=== PATIENT | male | born 1930 | race Two or more races ===

== ENCOUNTER 2016-07-04 15:18 | Inpatient (IN) | payer MEDICARE, MEDICAID ==
[~2016-07-04] VITALS: Ht 149.9 cm; Wt 54.4 kg
[~2016-07-04 15:18] MED LIST: ASPIR-LOW81 MG PO; BROMDAY1.7 M1 BOTH EYES; COMBIGAN EYE DRO5 ML BOTH EYES; CYCLOBENZAPRINE10 MG PO; GLUCOPHAGE500 MG ORAL; LIDODERM700 M1 TP; LOTREL 5-10 MG1 EAC1 PO; NAPROXEN375 MG ORAL; NAPROXEN500 M2 PO; PRILOSEC20 MG ORAL; SIMVASTATIN40 MG ORAL; TIMOPTIC 0.5%1 DRO1 BOTH EYES; TRAVATAN 0.0042.5 ML RIGHT EYE; VICODIN 5-5001 EACH PO
[2016-07-04] MEDS ORDERED: BENAZEPRIL HCL40 MG ORAL (15:29)
[2016-07-04] MEDS ORDERED: NORCO 5-325 TA1 EACH ORAL (15:29)
[2016-07-04] MEDS ORDERED: LATANOPROST2.5 ML BOTH EYES (15:29)
[2016-07-04] MEDS ORDERED: AZOPT10 ML OP (15:29)
[2016-07-04] MEDS ORDERED: MELOXICAM15 MG PO (15:29)
[2016-07-04] MEDS ORDERED: TIMOPTIC 0.5%1 EACH OP (15:29)
[2016-07-04] MEDS ORDERED: AMLODIPINE BESYL5 MG ORAL (15:29)
[2016-07-04] MEDS ORDERED: GABAPENTIN300 MG ORAL (15:29)
[2016-07-04] MEDS ORDERED: AKTOB1 DROP BOTH EYES (15:29)
--- NOTE | 2016-07-04 15:42 | Emergency Room Report ---
History of Present Illness General Chief Complaint: Gastrointestinal Bleed Source: Patient, EMS Present Illness HPI The patient presents with 6 days of vomiting dark blood and also passing blood per rectum. He's had some dizziness recently. He has diarrhea which is about 6 times today. It's been mckayla blood according to him. He's not sure how much. He has epigastric pain also. He thinks he's had this in the past but has not had studies done in the past. There was no coffee-ground material but with slight dark blood in the vomit. He rates the pain in his stomach as 10/10 , burning and pressure, constant and not radiating (though he is smiling and in NAD). The patient denies being evaluated for this problem in the past. The patient denies chest pain, shortness of breath, fever, chills. The patient has arthritis and takes some medication for that he's not sure that it is. He denies any blood thinner. His is unaware of passing blood in stool. Allergies: Coded Allergies: No Known Allergies (Unverified , 05/28/12) Patient History Past Medical History: see triage record Social History: Denies: smoking Social History Narrative , born [facility] Reviewed Nursing Documentation: PMH: Agreed, PSxH: Agreed Nursing Documentation-PMH Past Medical History: No History, Except For Hx Cardiac Problems: Yes Hx Hypertension: Yes Hx Diabetes: Yes Hx Cancer: No Hx Gastrointestinal Problems: Yes Hx Neurological Problems: No Review of Systems All Other Systems: negative except mentioned in HPI Physical Exam Vital Signs Date Time Temp Pulse Resp B/P Pulse Ox O2 Delivery O2 Flow Rate FiO2 07/04/17 15:15 98.1 78 20 144/71 98 Room Air Sp02 EP Interpretation: reviewed, normal General Appearance: well appearing, no apparent distress, GCS 15 Head: normocephalic Eyes: bilateral eye PERRL, bilateral eye normal inspection, bilateral eye other - no pallor - sylastic lenses ENT: moist mucus membranes Neck: supple Respiratory: lungs clear, normal breath sounds Cardiovascular #1: regular rate, rhythm Cardiovascular #2: 2+ radial (R) Gastrointestinal: normal inspection, normal bowel sounds, non tender, no mass, non-distended Rectal: heme positive stool, other - possible hemorrhoid versus other process Musculoskeletal: back normal, gait/station normal, normal range of motion Neurologic: alert, oriented x3, grossly normal Psychiatric: mood/affect normal Skin: normal inspection, warm/dry, other - no pallor Medical Decision Making Diagnostic Impression: Primary Impression: Gastrointestinal hemorrhage Qualified Codes: K92.2 - Gastrointestinal hemorrhage, unspecified Additional Impressions: Hyponatremia Epigastric pain ER Course Patient with reported vomiting blood, epigastric pain and passing blood in stool (guaiac + stool). Ddx; gastritis, PUD, hemorrhoids, diverticulosis, anemia. Need to exclude cardiac involvement and assess extent of blood loss. Labs, EKG and abd xrays and CXR ordered. Treatment with gentle hydration, protonix and analgesia. WBC and H/H good. Sodium is low and might be partial cause of vomiting (or result). Needs IV hydration and repeat eval of H/H and sodium. Admit med Dr. Wilkerson. Laboratory Tests Test 07/04/16 15:38 07/04/16 16:50 White Blood Count 9.9 K/UL (4.8-10.8) Red Blood Count 3.86 M/UL (4.70-6.10) L Hemoglobin 11.7 G/DL (14.2-18.0) L Hematocrit 32.6 % (42.0-52.0) L Mean Corpuscular Volume 84 FL (80-99) Mean Corpuscular Hemoglobin 30.3 PG (27.0-31.0) Mean Corpuscular Hemoglobin Concent 35.9 G/DL (32.0-36.0) Red Cell Distribution Width 12.3 % (11.6-14.8) Platelet Count 270 K/UL (150-450) Mean Platelet Volume 6.8 FL (6.5-10.1) Neutrophils (%) (Auto) 78.4 % (45.0-75.0) H Lymphocytes (%) (Auto) 12.8 % (20.0-45.0) L Monocytes (%) (Auto) 7.8 % (1.0-10.0) Eosinophils (%) (Auto) 0.4 % (0.0-3.0) Basophils (%) (Auto) 0.6 % (0.0-2.0) Prothrombin Time 10.6 SEC (9.30-11.50) Prothrombin Time INR 1.0 (0.9-1.1) PTT 33 SEC (23-33) Sodium Level 125 mEQ/L (135-145) L Potassium Level 4.3 mEQ/L (3.4-4.9) Chloride Level 87 mEQ/L (98-107) L Carbon Dioxide Level 20 mEQ/L (20-30) Anion Gap 18 (5-15) H Blood Urea Nitrogen 14 mg/dL (7-23) Creatinine 1.1 mg/dL (0.7-1.2) Estimate Glomerular Filtration Rate mL/min (>60) Glucose Level 176 mg/dL (74-106) H Calcium Level 9.4 mg/dL (8.6-10.2) Total Bilirubin 0.4 mg/dL (0.0-1.2) Aspartate Amino Transferase (AST) 15 U/L (5-40) Alanine Aminotransferase (ALT) 9 U/L (3-41) Alkaline Phosphatase 81 U/L (40-129) Troponin I < 0.30 ng/mL (<=0.30) Total Protein 7.2 g/dL (6.6-8.7) Albumin 4.1 g/dL (3.5-5.2) Globulin 3.1 g/dL Albumin/Globulin Ratio 1.3 (1.0-2.7) Lipase 18 U/L (< 60) Urine Color Pale yellow Urine Appearance Clear Urine pH 7 (4.5-8.0) Urine Specific [place] 1.005 (1.005-1.035) Urine Protein 1+ (NEGATIVE) H Urine Glucose (UA) 2+ (NEGATIVE) H Urine Ketones Negative (NEGATIVE) Urine Occult Blood 1+ (NEGATIVE) H Urine Nitrite Negative (NEGATIVE) Urine Bilirubin Negative (NEGATIVE) Urine Urobilinogen Normal MG/DL (0.0-1.0) Urine Leukocyte Esterase Negative (NEGATIVE) Urine RBC 2-4 /HPF (0 - 0) H Urine WBC 0-2 /HPF (0 - 0) Urine Squamous Epithelial Cells None /LPF (NONE/OCC) Urine Bacteria Few /HPF (NONE) EKG Diagnostic Results Rate: normal Rhythm: NSR ST Segments: no acute changes Rhythm Strip Diag. Results EP Interpretation: yes Rhythm: NSR, no PVC's, no ectopy Chest X-Ray Diagnostic Results EP Interpretation: Yes Findings: no consolidation, no effusion, no pneumothorax, other - atelectasis R base Number of Views: 1 Other X-Ray Diagnostic Results Other X-Ray Diagnostic Results : X-Ray Ordered: abd EP Interpretation: Yes Number of Views: 2 - paucity gas, no SBO, no masses Last Vital Signs Date Time Temp Pulse Resp B/P Pulse Ox O2 Delivery O2 Flow Rate FiO2 07/04/16 21:00 96.4 61 18 117/59 Room Air 07/04/16 18:46 95 Status: improved Disposition: ADMITTED INPATIENT Condition: Serious Spencer Alejandre M.D. July 04, 2016 15:42
[2016-07-04] MEDS ORDERED: Pantoprazole Inj IV ONE (15:45)
[2016-07-04] MEDS ORDERED: Morphine Sulfate 2mg/ml Inj IVP ONE (15:45)
[2016-07-04 16:05] VITALS: BP 143/68
[2016-07-04 16:22] LABS: PROTHROMBIN TIME 10.6 SEC (9.30-11.50)
[2016-07-04 16:28] LABS: ALANINE AMINOTRANSFERASE 9 U/L (3-41); ALBUMIN/GLOBULIN RATIO 1.3 (1.0-2.7); ASPARTATE AMINO TRANSFERASE 15 U/L (5-40); BASOPHILS % (AUTO) 0.6 % (0.0-2.0); CALCIUM 9.4 mg/dL (8.6-10.2); CARBON DIOXIDE 20 mEQ/L (20-30); CREATININE 1.1 mg/dL (0.7-1.2); EOSINOPHILS % (AUTO) 0.4 % (0.0-3.0); HEMOLYSIS 4; LIPASE 18 U/L (< 60); LYMPHOCYTES % (AUTO) 12.8 % (20.0-45.0); MEAN CORPUSCULAR HEMOGLOBIN 30.3 PG (27.0-31.0); MEAN CORPUSCULAR HGB CONC 35.9 G/DL (32.0-36.0); MEAN CORPUSCULAR VOLUME 84 FL (80-99); MEAN PLATELET VOLUME 6.8 FL (6.5-10.1); MONOCYTES % (AUTO) 7.8 % (1.0-10.0); NEUTROPHILS % (AUTO) 78.4 % (45.0-75.0); PLATELET COUNT 270 K/UL (150-450); RED BLOOD COUNT 3.86 M/UL (4.70-6.10); RED CELL DISTRIBUTION WIDTH 12.3 % (11.6-14.8); TOTAL PROTEIN 7.2 g/dL (6.6-8.7); WHITE BLOOD COUNT 9.9 K/UL (4.8-10.8)
[2016-07-04 16:32] LABS: TROPONIN I < 0.30 ng/mL (<=0.30)
[2016-07-04 16:39] LABS: ANION GAP 18 (5-15); CHLORIDE 87 mEQ/L (98-107); POTASSIUM 4.3 mEQ/L (3.4-4.9); SODIUM 125 mEQ/L (135-145)
[2016-07-04 17:00] LABS: APPEARANCE,URINE CLEAR; KETONES,URINE NEGATIVE (NEGATIVE); LEUKOCYTE ESTERASE ,URINE NEGATIVE (NEGATIVE); NITRITE,URINE NEGATIVE (NEGATIVE); PH,URINE 7 (4.5-8.0); PROTEIN,URINE 1+ (NEGATIVE); UROBILINOGEN,URINE NORMAL MG/DL (0.0-1.0)
[2016-07-04 17:10] LABS: BACTERIA,URINE FEW /HPF; WBC,URINE 0-2 /HPF (0 - 0)
--- NOTE | 2016-07-04 17:14 | Diagnostic Imaging Report ---
Indications: Abdominal pain. Technique: AP view of the abdomen Findings: Comparison: None. Bowel gas pattern is unremarkable. A cluster of small nodular calcifications projects to the left of the upper lumbar spine. Scattered arterial mural calcifications. No soft tissue densities are demonstrated. Small osteophytes are present at the margins of multiple lumbar disc spaces.. IMPRESSION: No evidence of acute abdominopelvic disease Arteriosclerosis Left paraspinous calcifications may be vascular or represent kidney stones. Mild degenerative spondylosis
--- NOTE | 2016-07-04 17:15 | Diagnostic Imaging Report ---
Indications: Chest pain Technique: Leg the chest Findings: Comparison: 07/15/2012 Inspiratory effort has improved. Left lung base linear density has resolved. Elevation of the right hemidiaphragm persists with overlying linear density, unchanged. No new pulmonary parenchymal abnormality demonstrated. No pleural disease evident. Cardiac silhouette remains partially obscured. Pulmonary vasculature remains within normal limits. IMPRESSION: No evidence of acute cardio pulmonary disease, unchanged Persistent elevation of right hemidiaphragm with overlying subsegmental atelectasis versus scarring
[2016-07-04 17:19] VITALS: BP 137/67
[2016-07-04 18:46] VITALS: BP 144/77
[2016-07-04 21:00] VITALS: BP 117/59
[2016-07-04] MEDS ORDERED: Acetaminophen 500mg (ES) tab ORAL PRN (22:00)
[2016-07-04] MEDS: Pantoprazole Inj IVP SCH (22:33)
[2016-07-04] MEDS: D5NS 1,000 ML IV SCH (22:34)
[2016-07-04] MEDS: Norco 5mg/325mg tab ORAL PRN (23:11)
[2016-07-05] VITALS (13 sets, daily range): BP systolic 101–139; BP diastolic 52–79
[2016-07-05] MEDS: Norco 5mg/325mg tab ORAL PRN ×5 (03:55→22:33)
[2016-07-05 07:12] LABS: EOSINOPHILS % (AUTO) 1.4 % (0.0-3.0); LYMPHOCYTES % (AUTO) 21.9 % (20.0-45.0); MEAN CORPUSCULAR HEMOGLOBIN 27.9 PG (27.0-31.0); MEAN CORPUSCULAR HGB CONC 32.3 G/DL (32.0-36.0); MEAN CORPUSCULAR VOLUME 87 FL (80-99); MEAN PLATELET VOLUME 7.6 FL (6.5-10.1); MONOCYTES % (AUTO) 13.2 % (1.0-10.0); NEUTROPHILS % (AUTO) 62.4 % (45.0-75.0); PLATELET COUNT 314 K/UL (150-450); RED BLOOD COUNT 4.06 M/UL (4.70-6.10); RED CELL DISTRIBUTION WIDTH 12.9 % (11.6-14.8)
[2016-07-05 07:26] LABS: ALANINE AMINOTRANSFERASE 9 U/L (3-41); ALBUMIN/GLOBULIN RATIO 1.3 (1.0-2.7); ANION GAP 17 (5-15); ASPARTATE AMINO TRANSFERASE 16 U/L (5-40); CALCIUM 9.2 mg/dL (8.6-10.2); CARBON DIOXIDE 22 mEQ/L (20-30); CHLORIDE 90 mEQ/L (98-107); CREATININE 1.1 mg/dL (0.7-1.2); HEMOLYSIS 3; POTASSIUM 3.9 mEQ/L (3.4-4.9); SODIUM 129 mEQ/L (135-145); TOTAL PROTEIN 7.2 g/dL (6.6-8.7)
[2016-07-05] MEDS: Pantoprazole Inj IVP SCH ×2 (08:40→20:41)
--- NOTE | 2016-07-05 09:04 | Pre-Procedure Note/Attestation ---
Pre-Procedure Note/Attestation Complete Prior to Procedure Planned Procedure: not applicable Procedure Narrative: egd Indications for Procedure Pre-Operative Diagnosis: gib Attestation I attest that I discussed the nature of the procedure; its benefits; risks and complications; and alternatives (and the risks and benefits of such alternatives ), prior to the procedure, with the patient (or the patient's legal wireless sales representative). I attest that, if there was a reasonable possibility of needing a blood transfusion, the patient (or the patient's legal wireless sales representative) was given the [facility] standardized written summary, pursuant to the Gomez Marcin Blood Safety Act ([place] Health and Safety Code # 1645, as amended). I attest that I re-evaluated the patient just prior to the surgery and that there has been no change in the patient's H&P, except as documented below: CHERISE MORALES July 05, 2016 09:04
[2016-07-05 09:21] LABS: MAGNESIUM 1.8 mg/dL (1.7-2.5); PHOSPHORUS 2.6 mg/dL (2.5-4.8); URIC ACID 3.8 mg/dL (3.0-7.5)
[2016-07-05 09:30] LABS: THYROID STIMULATING HORMONE 1.14 uIU/mL (0.300-4.500)
[2016-07-05] MEDS ORDERED: Pneumococcal Vaccine 25mcg/0.5ml IM ONE (10:00)
--- NOTE | 2016-07-05 10:09 | Consultation ---
History of Present Illness General Date patient seen: July 05, 2016 Present Illness Allergies: Coded Allergies: No Known Allergies (Unverified , 05/28/12) Medication History Scheduled Amlodipine Besylate* (Amlodipine Besylate*), 5 MG ORAL DAILY, (Reported) Amlodipine Besylate/Benazepril 5-10 Mg* (Lotrel 5-10 Mg Capsule*), 1 EACH PO DAILY, (Reported) Aspirin* (Aspir-Low*), 81 MG PO DAILY, (Reported) Benazepril Hcl* (Benazepril Hcl*), 40 MG ORAL DAILY, (Reported) Brimonidine Tartrate/Timolol (Combigan Eye Drops), 5 ML BOTH EYES DAILY, ( Reported) Bromfenac Sodium (Bromday), 1.7 ML BOTH EYES DAILY, (Reported) Cyclobenzaprine Hcl* (Flexeril*), 10 MG PO TID Gabapentin* (Gabapentin*), 300 MG ORAL THREE TIMES A DAY, (Reported) Hydrocodone/Acetaminophen 5-500 (Vicodin 5-500), 1 TAB PO Q8H Latanoprost* (Xalatan*), Unknown Dose BOTH EYES BEDTIME, (Reported) Meloxicam* (Meloxicam*), 15 MG PO DAILY, (Reported) Metformin Hcl* (Glucophage*), 750 MG ORAL DAILY, (Reported) Omeprazole (Prilosec), 40 MG ORAL BID, (Reported) Simvastatin (Zocor), 10 MG ORAL DAILY, (Reported) Timolol Maleate (Timolol Maleate), 1 DROP BOTH EYES TWICE A DAY, (Reported) Tobramycin Sulf (Tobramycin), Unknown Dose BOTH EYES Q4H, (Reported) Travoprost (Benzalkonium) (Travatan 0.004% Eye Drop), 2.5 ML RIGHT EYE QHS, ( Reported) Scheduled PRN Hydrocodone Bit/Acetaminophen 5-325* ([place] 5-325*), 1 TAB ORAL Q4H PRN for For Pain, (Reported) Lidocaine (Lidoderm), 700 MG TP 3XW PRN, (Reported) Naproxen* (Naproxen*), 500 MG PO BID PRN, (Reported) Miscellaneous Medications Brinzolamide (Azopt), Unknown Dose OP, (Reported) Timolol Maleate/Pf (Timoptic 0.5% Ocudose Drop), Unknown Dose OP, (Reported) Patient History Healthcare decision maker N Resuscitation status Full Code Advanced Directive on File Physical Exam Last 24 Hour Vital Signs Date Time Temp Pulse Resp B/P Pulse Ox O2 Delivery O2 Flow Rate FiO2 07/05/16 08:39 60 130/62 07/05/16 07:56 97.5 60 15 130/62 96 Room Air 07/05/16 04:00 96.3 55 18 135/64 97 Room Air 07/05/16 00:00 97.5 57 18 135/64 96 Room Air 07/04/16 21:00 96.4 61 18 117/59 Room Air 07/04/16 18:46 97.7 79 20 144/77 95 Room Air 07/04/16 17:44 98.1 61 20 137/67 98 Room Air 07/04/16 17:19 98.1 61 20 137/67 98 Room Air 07/04/16 16:43 98.1 07/04/16 16:05 98.1 63 20 143/68 98 Room Air 07/04/16 15:15 98.1 78 20 144/71 98 Room Air Intake and Output 07/04/16 07/05/16 19:00 07:00 Intake Total 400 ml Balance 400 ml Intake IV Total 400 ml # Voids 1 4 # Bowel Movements 1 1 Laboratory Tests Test 07/04/16 15:38 07/04/16 16:50 07/05/16 04:50 White Blood Count 9.9 K/UL (4.8-10.8) 8.0 K/UL (4.8-10.8) Red Blood Count 3.86 M/UL (4.70-6.10) L 4.06 M/UL (4.70-6.10) L Hemoglobin 11.7 G/DL (14.2-18.0) L 11.3 G/DL (14.2-18.0) L Hematocrit 32.6 % (42.0-52.0) L 35.1 % (42.0-52.0) L Mean Corpuscular Volume 84 FL (80-99) 87 FL (80-99) Mean Corpuscular Hemoglobin 30.3 PG (27.0-31.0) 27.9 PG (27.0-31.0) Mean Corpuscular Hemoglobin Concent 35.9 G/DL (32.0-36.0) 32.3 G/DL (32.0-36.0) Red Cell Distribution Width 12.3 % (11.6-14.8) 12.9 % (11.6-14.8) Platelet Count 270 K/UL (150-450) 314 K/UL (150-450) Mean Platelet Volume 6.8 FL (6.5-10.1) 7.6 FL (6.5-10.1) Neutrophils (%) (Auto) 78.4 % (45.0-75.0) H 62.4 % (45.0-75.0) Lymphocytes (%) (Auto) 12.8 % (20.0-45.0) L 21.9 % (20.0-45.0) Monocytes (%) (Auto) 7.8 % (1.0-10.0) 13.2 % (1.0-10.0) H Eosinophils (%) (Auto) 0.4 % (0.0-3.0) 1.4 % (0.0-3.0) Basophils (%) (Auto) 0.6 % (0.0-2.0) 1.0 % (0.0-2.0) Prothrombin Time 10.6 SEC (9.30-11.50) 10.0 SEC (9.30-11.50) Prothromb Time International Ratio 1.0 (0.9-1.1) 1.0 (0.9-1.1) Activated Partial Thromboplast Time 33 SEC (23-33) 30 SEC (23-33) Sodium Level 125 mEQ/L (135-145) L 129 mEQ/L (135-145) L Potassium Level 4.3 mEQ/L (3.4-4.9) 3.9 mEQ/L (3.4-4.9) Chloride Level 87 mEQ/L (98-107) L 90 mEQ/L (98-107) L Carbon Dioxide Level 20 mEQ/L (20-30) 22 mEQ/L (20-30) Anion Gap 18 (5-15) H 17 (5-15) H Blood Urea Nitrogen 14 mg/dL (7-23) 10 mg/dL (7-23) Creatinine 1.1 mg/dL (0.7-1.2) 1.1 mg/dL (0.7-1.2) Estimat Glomerular Filtration Rate mL/min (>60) mL/min (>60) Glucose Level 176 mg/dL (74-106) H 153 mg/dL (74-106) H Calcium Level 9.4 mg/dL (8.6-10.2) 9.2 mg/dL (8.6-10.2) Total Bilirubin 0.4 mg/dL (0.0-1.2) 0.6 mg/dL (0.0-1.2) Aspartate Amino Transf (AST/SGOT) 15 U/L (5-40) 16 U/L (5-40) Alanine Aminotransferase (ALT/SGPT) 9 U/L (3-41) 9 U/L (3-41) Alkaline Phosphatase 81 U/L (40-129) 78 U/L (40-129) Troponin I < 0.30 ng/mL (<=0.30) Total Protein 7.2 g/dL (6.6-8.7) 7.2 g/dL (6.6-8.7) Albumin 4.1 g/dL (3.5-5.2) 4.1 g/dL (3.5-5.2) Globulin 3.1 g/dL 3.1 g/dL Albumin/Globulin Ratio 1.3 (1.0-2.7) 1.3 (1.0-2.7) Lipase 18 U/L (< 60) Urine Color Pale yellow Urine Appearance Clear Urine pH 7 (4.5-8.0) Urine Specific [place] 1.005 (1.005-1.035) Urine Protein 1+ (NEGATIVE) H Urine Glucose (UA) 2+ (NEGATIVE) H Urine Ketones Negative (NEGATIVE) Urine Occult Blood 1+ (NEGATIVE) H Urine Nitrite Negative (NEGATIVE) Urine Bilirubin Negative (NEGATIVE) Urine Urobilinogen Normal MG/DL (0.0-1.0) Urine Leukocyte Esterase Negative (NEGATIVE) Urine RBC 2-4 /HPF (0 - 0) H Urine WBC 0-2 /HPF (0 - 0) Urine Squamous Epithelial Cells None /LPF (NONE/OCC) Urine Bacteria Few /HPF (NONE) Plasma/Serum Osmolality Pending Uric Acid 3.8 mg/dL (3.0-7.5) Phosphorus Level 2.6 mg/dL (2.5-4.8) Magnesium Level 1.8 mg/dL (1.7-2.5) Thyroid Stimulating Hormone (TSH) 1.140 uIU/mL (0.300-4.500) Height (Feet): 5 Height (Inches): 5.00 Weight (Pounds): 120 Medications Current Medications Medications (Trade) Dose Ordered Sig/Deb Route PRN Reason Start Time Stop Time Status Last Admin Dose Admin Acetaminophen (Tylenol) 500 mg Q4H PRN ORAL Mild Pain/Temp > 100.5 07/04/16 22:00 08/03/16 21:59 Acetaminophen/ Hydrocodone Bitart ([place] 5/325) 1 tab Q4H PRN ORAL Moderate Pain (Pain Scale 4-6) 07/04/16 22:00 07/11/16 21:59 07/05/16 08:40 Amlodipine Besylate (Norvasc) 5 mg DAILY ORAL 07/05/16 09:00 08/04/16 08:59 07/05/16 08:39 Dextrose/Sodium Chloride (D5ns) 1,000 ml @ 50 mls/hr Q20H IV 07/04/16 22:00 08/03/16 21:59 07/04/16 22:34 Lidocaine (Lidoderm 5% PATCH) 1 patch DAILY TDERMAL 07/05/16 10:00 08/04/16 09:59 Non-Formulary Medication (Non-Formulary Med) 1 ea BID BOTH EYES 07/05/16 09:00 08/04/16 08:59 UNV Non-Formulary Medication (Non-Formulary Med) 1 ea THREE TIMES A DAY BOTH EYES 07/05/16 09:00 08/04/16 08:59 UNV Ondansetron HCl 4 mg 4 mg Q6H PRN IVP Nausea & Vomiting 07/04/16 21:30 08/03/16 21:29 Pantoprazole (Protonix) 40 mg EVERY 12 HOURS IVP 07/04/16 22:00 08/03/16 21:59 07/05/16 08:40 Assessment/Plan Assessment/Plan (1) Lumbar DDD (2) Lumbar Spondylosis (3) Cervical DDD (4) Cervical Spondylosis Seen Dictated TEJINDER SEARS J Carlos Eli July 05, 2016 10:09
--- NOTE | 2016-07-05 11:39 | Pre-Procedure Note/Attestation ---
Pre-Procedure Note/Attestation Complete Prior to Procedure Planned Procedure: not applicable Procedure Narrative: egd Indications for Procedure Pre-Operative Diagnosis: gib Attestation I attest that I discussed the nature of the procedure; its benefits; risks and complications; and alternatives (and the risks and benefits of such alternatives ), prior to the procedure, with the patient (or the patient's legal retail wireless sales representative). I attest that, if there was a reasonable possibility of needing a blood transfusion, the patient (or the patient's legal retail wireless sales representative) was given the [facility] standardized written summary, pursuant to the Gomez Marcin Blood Safety Act ([place] Health and Safety Code # 1645, as amended). I attest that I re-evaluated the patient just prior to the surgery and that there has been no change in the patient's H&P, except as documented below: CHERISE MORALES July 05, 2016 11:39
--- NOTE | 2016-07-05 11:50 | Anethesia Preoperative Eval ---
Anesthesia Pre-op PMH/ROS General Date of Evaluation: July 05, 2016 Anesthesiologist: Archie ASA Score: ASA 3 Mallampati Score Class I : Soft palate, uvula, fauces, pillars visible Class II: Soft palate, uvula, fauces visible Class III: Soft palate, base of uvula visible Class IV: Only hard plate visible Mallampati Classification: Class II Surgeon: Vahe Diagnosis: GI bleed Surgical Procedure: EGD Anesthesia History: none Family History: no anesthesia problems Allergies: Coded Allergies: No Known Allergies (Unverified , 05/28/12) Medications: see eMAR Past Medical History Cardiovascular: Reports: HTN, other - HLD, Denies: CAD, AR, arrhythmia, valve dz Pulmonary: Denies: COPD, PAPITO, asthma, other Gastrointestinal/Genitourinary: Reports: GERD, Denies: CRI, ESRD, other Neurologic/Psychiatric: Denies: CVA, TIA, dementia, depression/anxiety, other Endocrine: Reports: DM, Denies: hypothyroidism, other, steroids HEENT: Denies: [place] (L), [place] (R), cataract (L), cataract (R), glaucoma, other Hematology/Immune: Denies: DVT, anemia, bleeding disorder, other Musculoskeletal/Integumentary: Reports: OA, Denies: DDD, DJD, RA, edema, other PSxH Narrative: unable to assess Anesthesia Pre-op Phys. Exam Physician Exam Last Vital Signs Date Time Temp Pulse Resp B/P Pulse Ox O2 Delivery O2 Flow Rate FiO2 07/05/16 08:39 60 130/62 07/05/16 07:56 97.5 15 96 Room Air Constitutional: NAD Cardiovascular: RRR Respiratory: CTA Airway Exam Mallampati Score: Class II MO: limited ROM: limited Teeth: intact Anesthesia Pre-op A/P Labs Hematology Test 07/04/16 15:38 07/05/16 04:50 White Blood Count 9.9 K/UL (4.8-10.8) 8.0 K/UL (4.8-10.8) Red Blood Count 3.86 M/UL (4.70-6.10) L 4.06 M/UL (4.70-6.10) L Hemoglobin 11.7 G/DL (14.2-18.0) L 11.3 G/DL (14.2-18.0) L Hematocrit 32.6 % (42.0-52.0) L 35.1 % (42.0-52.0) L Mean Corpuscular Volume 84 FL (80-99) 87 FL (80-99) Mean Corpuscular Hemoglobin 30.3 PG (27.0-31.0) 27.9 PG (27.0-31.0) Mean Corpuscular Hemoglobin Concent 35.9 G/DL (32.0-36.0) 32.3 G/DL (32.0-36.0) Red Cell Distribution Width 12.3 % (11.6-14.8) 12.9 % (11.6-14.8) Platelet Count 270 K/UL (150-450) 314 K/UL (150-450) Mean Platelet Volume 6.8 FL (6.5-10.1) 7.6 FL (6.5-10.1) Neutrophils (%) (Auto) 78.4 % (45.0-75.0) H 62.4 % (45.0-75.0) Lymphocytes (%) (Auto) 12.8 % (20.0-45.0) L 21.9 % (20.0-45.0) Monocytes (%) (Auto) 7.8 % (1.0-10.0) 13.2 % (1.0-10.0) H Eosinophils (%) (Auto) 0.4 % (0.0-3.0) 1.4 % (0.0-3.0) Basophils (%) (Auto) 0.6 % (0.0-2.0) 1.0 % (0.0-2.0) Coagulation Test 07/04/16 15:38 07/05/16 04:50 Prothrombin Time 10.6 SEC (9.30-11.50) 10.0 SEC (9.30-11.50) Prothromb Time International Ratio 1.0 (0.9-1.1) 1.0 (0.9-1.1) Activated Partial Thromboplast Time 33 SEC (23-33) 30 SEC (23-33) Chemistry Test 07/04/16 15:38 07/05/16 04:50 Sodium Level 125 mEQ/L (135-145) L 129 mEQ/L (135-145) L Potassium Level 4.3 mEQ/L (3.4-4.9) 3.9 mEQ/L (3.4-4.9) Chloride Level 87 mEQ/L (98-107) L 90 mEQ/L (98-107) L Carbon Dioxide Level 20 mEQ/L (20-30) 22 mEQ/L (20-30) Anion Gap 18 (5-15) H 17 (5-15) H Blood Urea Nitrogen 14 mg/dL (7-23) 10 mg/dL (7-23) Creatinine 1.1 mg/dL (0.7-1.2) 1.1 mg/dL (0.7-1.2) Estimat Glomerular Filtration Rate mL/min (>60) mL/min (>60) Glucose Level 176 mg/dL (74-106) H 153 mg/dL (74-106) H Calcium Level 9.4 mg/dL (8.6-10.2) 9.2 mg/dL (8.6-10.2) Total Bilirubin 0.4 mg/dL (0.0-1.2) 0.6 mg/dL (0.0-1.2) Aspartate Amino Transf (AST/SGOT) 15 U/L (5-40) 16 U/L (5-40) Alanine Aminotransferase (ALT/SGPT) 9 U/L (3-41) 9 U/L (3-41) Alkaline Phosphatase 81 U/L (40-129) 78 U/L (40-129) Troponin I < 0.30 ng/mL (<=0.30) Total Protein 7.2 g/dL (6.6-8.7) 7.2 g/dL (6.6-8.7) Albumin 4.1 g/dL (3.5-5.2) 4.1 g/dL (3.5-5.2) Globulin 3.1 g/dL 3.1 g/dL Albumin/Globulin Ratio 1.3 (1.0-2.7) 1.3 (1.0-2.7) Lipase 18 U/L (< 60) Plasma/Serum Osmolality Pending Uric Acid 3.8 mg/dL (3.0-7.5) Phosphorus Level 2.6 mg/dL (2.5-4.8) Magnesium Level 1.8 mg/dL (1.7-2.5) Thyroid Stimulating Hormone (TSH) 1.140 uIU/mL (0.300-4.500) Studies Pre-op Studies: EKG - sr Risk Assessment & Plan Assessment: ASA III Plan: MAC Status Change Before Surgery: No Pre-Antibiotics Drug: N/A CAMILO JHAVERI M.D. July 05, 2016 11:50
[2016-07-05] MEDS ORDERED: DiphenhydrAMINE 50mg/ml Inj IVP PRN (12:00)
[2016-07-05] MEDS ORDERED: Propofol 10mg/ml 20ml IV ONE (12:00)
[2016-07-05] MEDS ORDERED: Lidocaine 1% MPF 10mg/ml 5ml ONE (12:00)
--- NOTE | 2016-07-05 12:19 | Endoscopy Procedure Note ---
Endoscopy Procedure Note Indication for Procedure: gib Procedures Performed: EGD Operative Findings/Diagnosis: gastric polyp Specimen: yes Pt Tolerated Procedure Well: Yes Estimated Blood Loss: none Anesthesiologist: pj Anesthesia: MAC Implant(s) used?: No 50 yrs or older w/o bx or poly: Not Applicable 10yrs. F/U not recommended: Not Applicable CHERISE MORALES July 05, 2016 12:19
--- NOTE | 2016-07-05 12:27 | Immediate Post-Op Evaluation ---
Immediate Post-Op Evalulation Immediate Post-Op Evalulation Procedure: EGD Date of Evaluation: July 05, 2016 Time of Evaluation: 12:28 IV Fluids: 300 Blood Products: 0 Estimated Blood Loss: 0 Urinary Output: 0 Blood Pressure Systolic: 91 Blood Pressure Diastolic: 42 Pulse Rate: 61 Respiratory Rate: 16 O2 Sat by Pulse Oximetry: 100 Temperature (Fahrenheit): 97.6 Pain Score (1-10): 0 Nausea: No Vomiting: No Complications 0 Patient Status: awake, reacts, patent, none Hydration Status: adequate Drug: N/A CAMILO JHAVERI M.D. July 05, 2016 12:27
--- NOTE | 2016-07-05 12:56 | Consultation ---
Consult Note Consult Note asked to eval for low Na The patient presents with 6 days of vomiting dark blood and also passing blood per rectum. He's had some dizziness recently. He's which is about 6 times today. It's been mckayla blood according to him. He's not sure how much. He has epigastric pain also. He thinks is and also but has not had studies done in the past. There was no coffee-ground material but with slight dark blood dysphonia. The patient denies being evaluated for this problem in the past. The patient denies chest pain, shortness of breath, fever, chills. The patient has arthritis and takes some medication for that he's not sure that it is. He denies any blood thinner. His is unaware of passing blood in stool. Social History Narrative , born [facility] Past Medical History: No History, Except For Hx Cardiac Problems: Yes Hx Hypertension: Yes Hx Diabetes: Yes Hx Gastrointestinal Problems: Yes . Assessment/Plan Staus; Low Na likely depletional GI bleed: been on NSAIDs DM- CAD GERD HTN Plan: Saline infusion Endoscopy- Protonix monitor LUCRECIA Saeed July 05, 2016 12:56
--- NOTE | 2016-07-05 13:40 | 48 Hour Post Anesthesia Eval ---
Post Anesthesia Evaluation Procedure: EGD Date of Evaluation: July 05, 2016 Time of Evaluation: 13:40 Blood Pressure Systolic: 121 0: 56 Pulse Rate: 62 Respiratory Rate: 22 Temperature (Fahrenheit): 97.6 O2 Sat by Pulse Oximetry: 96 Airway: patent Nausea: No Vomiting: No Pain Intensity: 0 Hydration Status: adequate Cardiopulmonary Status: at baseline Mental Status/LOC: patient returned to baseline Post-Anesthesia Complications: 0 Follow-up care needed: N/A - further care as per primary team CAMILO JHAVERI M.D. July 05, 2016 13:40
[2016-07-05] MEDS ORDERED: D5 1/2NS w/KCl 20mEq 1,000 ML IV SCH (16:00)
[2016-07-05] MEDS: D5NS 1,000 ML IV SCH (18:11)
--- NOTE | 2016-07-05 18:59 | Cardiology Report ---
APPROVED REPORT EKG Measurement Heart [id number] Normal sinus rhythm Left ventricular hypertrophy with repolarization abnormality Cannot rule out Septal infarct, age undetermined Abnormal ECG
--- NOTE | 2016-07-05 21:32 | Consultation ---
DATE OF CONSULTATION: 07/05/2016 PAIN MANAGEMENT CONSULTATION CONSULTING PHYSICIAN: Daysi Betancourt M.D. REFERRING PHYSICIAN: Zuleika Wilkerson M.D. PHYSICIAN TASSEL MAKER: Sreedhar Ivy CHIEF COMPLAINT: Neck and low back pain. HISTORY OF PRESENT ILLNESS: This is an 86-year-old male, who is being seen on the Med/Surg floor of [facility] for initial comprehensive pain management consultation. The patient reports that he has been having neck pain and low back pain for many years. The patient was seen in the past by Dr. Betancourt in 2012, but continues to have neck and lower back pain and was admitted to the hospital due to gastrointestinal bleed. At this time, the patient was complaining of pain in the neck and low back, which he rates at 10/10 at its worst. He is reporting that he received Lidoderm patch, which helps to relieve his pain and as an outpatient also takes tramadol at times and Benicia at times and was started on Benicia 5/325 mg one tablet every 4 hours as needed for moderate pain, which has helped to relieve his pain from a 10 to 5/10 at this time. We were consulted so that the patient would have adequate pain control while here in the hospital. PAST MEDICAL HISTORY: Diabetes, hypertension, glaucoma, and osteoarthritis. PAST SURGICAL HISTORY: Right forearm surgery and eye surgery due to glaucoma. SOCIAL HISTORY: Denies smoking, drinking alcohol, or drug abuse. ALLERGIES: No known drug allergies. MEDICATIONS: Amlodipine, aspirin, benazepril, Combigan, Flexeril, Neurontin, Vicodin, , meloxicam, Glucophage, Prilosec, Zocor, timolol, atorvastatin, , Lidoderm, and naproxen. REVIEW OF SYSTEMS: Denies rash, fever, chills, sweating, dizziness, drowsiness, blurred vision, sore throat, or change in hearing or weight. He is complaining of neck and low back pain. PHYSICAL EXAMINATION: GENERAL: Alert, awake, and oriented. The patient is Luxembourger speaking and being interpreted at this time. VITAL SIGNS: Blood pressure 130/60, heart rate is 60, oxygen saturation 96%, respiratory rate 15, and temperature 97.5 degrees Fahrenheit. HEENT: PERRLA. NECK: Range of motion is decreased due to the patient's condition with tenderness to paracervical muscles. No adenopathy. LUNGS: Decreased breath sounds bilaterally. HEART: S1 and S2 regular. ABDOMEN: There is tenderness to palpation. BACK: Range of motion is decreased in flexion and extension with tenderness to paraspinal muscles. No tenderness to trapezius or rhomboid muscles. EXTREMITIES: Range of motion is full in all directions. Motor is intact. No cyanosis. No clubbing. No edema. Sensory is intact. Reflexes are not obtainable. No adenopathy. Lower extremity range of motion is decreased due to the patient's clinical condition. Motor is 4/5 in all muscles bilaterally. No cyanosis. No clubbing. No edema. Sensory is intact. Reflexes are not obtainable. No adenopathy. ASSESSMENT AND PLAN: This is an 86-year-old male with lumbar degenerative disk disease, lumbar spondylosis, cervical degenerative disk disease, and cervical spondylosis. The patient will be continued on the Benicia 5/325 mg one tablet every 4 hours as needed for pain and will be started on Lidoderm patch 12 hours on and 12 hours off to be applied to the back at the site of the pain The patient was discussed with Dr. Betancourt and Dr. Betancourt concurred. We will follow the patient. Thank you very much for the courtesy of this consultation. Daysi Betancourt M.D. JP Ivy DR: JES JOB#: [id number] CC:
[2016-07-06] VITALS: BP 124/59
--- NOTE | 2016-07-06 00:32 | Procedure Note ---
DATE OF PROCEDURE: 07/05/2016 SURGEON: Jose Cotter M.D. PROCEDURE: Upper endoscopy with biopsy. ANESTHESIOLOGIST: . INSTRUMENT: Olympus adult flexible upper endoscope. INDICATION: Anemia and gastrointestinal bleeding. REASON FOR PROCEDURE: The procedure, risks, benefits, and possible consequences, including hemorrhage, aspiration, perforation and infection, and alternative treatments, were explained to the patient/legal guardian by Dr. Jose Cotter and the patient/legal guardian understood and accepted these risks. DESCRIPTION OF PROCEDURE: After informed consent was obtained and the patient was adequately sedated, Olympus upper endoscope was advanced from mouth into the second portion of duodenum and retroflexion was performed in the stomach. The patient had two inflammatory looking polyps in the antrum of the stomach, which were biopsied. The patient also had diffuse gastritis. Random biopsy from antrum was obtained to rule out H. pylori infection. The rest of the endoscopic exam was grossly within normal limit. The patient tolerated the procedure very well without complication. SUMMARY FINDINGS: 1. Gastric polyps. 2. Gastritis. RECOMMENDATIONS: Follow up biopsies and treat accordingly. I want to thank, Dr. Zuleika Wilkerson, for this kind referral. Jose Cotter M.D. DR: ALYSSA JOB#: [id number] CC: Zuleika Wilkerson M.D.; Fax#: [phone]
--- NOTE | 2016-07-06 01:32 | History and Physical Report ---
DATE OF ADMISSION: 07/04/2016 HISTORY OF PRESENT ILLNESS: History is obtained via the dispute resolution specialist. According to the , the patient had a rectal bleeding and is admitted for hyponatremia as well as rectal bleeding. He was weak, however, no syncopal episode. No nausea, vomiting or diarrhea. No fever or chills. No abdominal pain. No shortness of breath. PAST MEDICAL HISTORY: The patient has a history of hypertension, history of hyperlipidemia, history of glaucoma, history of neuropathy, chronic pain syndrome, degenerative joint disease, NIDDM, and GERD. PAST SURGICAL HISTORY: None. MEDICATIONS: Amlodipine, aspirin, benazepril, , Flexeril, gabapentin, Xalatan, Lidoderm, meloxicam, Glucophage, Prilosec, Zocor, and Kenalog. ALLERGIES: No known allergies. FAMILY HISTORY: Does have history of diabetes. SOCIAL HISTORY: The patient denies smoking, alcohol or illicit drugs. REVIEW OF SYSTEMS: HEENT: Denies headache. Respiratory: Denies shortness of breath. Denies cough. Cardiovascular: Denies chest pain. No orthopnea. Gastrointestinal: Reports rectal bleeding for one day. No abdominal pain. No nausea or vomiting. No constipation. Extremities: He does have chronic back pain, which is chronic. Central Nervous System: Denies change in vision or speech pattern. Had some dizzy episode, but without any syncope. PHYSICAL EXAMINATION: VITAL SIGNS: Temperature is 97.6 degrees, pulse is 60, and blood pressure 124/68. HEENT: PERRLA. NECK: Supple. No lymphadenopathy. CHEST: Clear to auscultation. GASTROINTESTINAL: Soft, nontender, and nondistended. No organomegaly. EXTREMITIES: No edema. Moves all four extremities. NEUROLOGIC: Sensory is intact to light touch. Reflexes equal on both sides. LABORATORY AND DIAGNOSTIC DATA: Labs with WBC of 9.9, hemoglobin 11.7, and platelet of 270,000. Sodium 125, potassium 4.3, BUN of 14, creatinine 1.1, and glucose of 176. ASSESSMENT: 1. Hyponatremia. 2. Rectal bleeding. 3. I have asked Dr. Cotter as well as Dr. Joya and Dr. Betancourt to see the patient for the above-mentioned diagnoses and treatment. Ali Husam Wilkerson DR: YVONNE JOB#: [id number] CC:
[2016-07-06 04:00] VITALS: BP 127/66
[2016-07-06 04:39] LABS: BASOPHILS % (AUTO) 1.1 % (0.0-2.0); EOSINOPHILS % (AUTO) 1.3 % (0.0-3.0); LYMPHOCYTES % (AUTO) 17.9 % (20.0-45.0); MEAN CORPUSCULAR HEMOGLOBIN 28.2 PG (27.0-31.0); MEAN CORPUSCULAR VOLUME 86 FL (80-99); MEAN PLATELET VOLUME 6.4 FL (6.5-10.1); MONOCYTES % (AUTO) 10.6 % (1.0-10.0); NEUTROPHILS % (AUTO) 69.1 % (45.0-75.0); PLATELET COUNT 309 K/UL (150-450); RED BLOOD COUNT 3.81 M/UL (4.70-6.10); WHITE BLOOD COUNT 10.3 K/UL (4.8-10.8)
[2016-07-06 05:19] LABS: ALANINE AMINOTRANSFERASE 9 U/L (3-41); ALBUMIN/GLOBULIN RATIO 1.2 (1.0-2.7); ANION GAP 12 (5-15); ASPARTATE AMINO TRANSFERASE 14 U/L (5-40); CALCIUM 9.2 mg/dL (8.6-10.2); CARBON DIOXIDE 24 mEQ/L (20-30); CHLORIDE 95 mEQ/L (98-107); CHOLESTEROL 113 mg/dL (< 200); CHOLESTEROL/HDL RATIO 3.5 (3.3-4.4); CREATININE 1.2 mg/dL (0.7-1.2); CRP QUANT < 0.3 mg/dL (< 0.5); HEMOLYSIS 4; LDL CHOLESTEROL (CALC.) 54 mg/dL (60-99); MAGNESIUM 1.8 mg/dL (1.7-2.5); PHOSPHORUS 2.8 mg/dL (2.5-4.8); SODIUM 131 mEQ/L (135-145); TOTAL PROTEIN 6.6 g/dL (6.6-8.7); URIC ACID 3.9 mg/dL (3.0-7.5)
[2016-07-06] MEDS: Norco 5mg/325mg tab ORAL PRN ×2 (06:24→12:14)
[2016-07-06 08:45] VITALS: BP 112/58
[2016-07-06] MEDS: Pantoprazole Inj IVP SCH (08:59)
--- NOTE | 2016-07-06 09:26 | General Progress Note ---
Assessment/Plan Problem List: (1) Gastrointestinal hemorrhage ICD Codes: K92.2 - Gastrointestinal hemorrhage, unspecified SNOMED: 37241282 Qualifiers: Qualified Codes: K92.2 - Gastrointestinal hemorrhage, unspecified (2) Hyponatremia ICD Codes: E87.1 - Hypo-osmolality and hyponatremia SNOMED: 57966575 (3) Epigastric pain ICD Codes: R10.13 - Epigastric pain SNOMED: 41114923 Status: progressing Assessment/Plan afebrile vitals stable s/p endoscopy with no significant finding Subjective ROS Limited/Unobtainable: Yes Constitutional: Reports: no symptoms Allergies: Coded Allergies: No Known Allergies (Unverified , 05/28/12) Objective Last 24 Hour Vital Signs Date Time Temp Pulse Resp B/P Pulse Ox O2 Delivery O2 Flow Rate FiO2 07/06/16 08:59 60 112/58 07/06/16 08:45 97.7 60 15 112/58 98 Room Air 07/06/16 04:00 98.1 55 18 127/66 100 Room Air 07/06/16 00:00 98.4 58 18 124/59 100 Room Air 07/05/16 20:00 97.3 60 18 124/58 95 Room Air 07/05/16 16:14 97.8 64 21 107/52 96 Room Air 07/05/16 13:40 62 22 96 07/05/16 13:10 97.6 62 23 121/56 96 Room Air 07/05/16 13:00 60 22 124/58 95 Room Air 07/05/16 12:50 63 24 119/58 96 Room Air 07/05/16 12:40 65 23 116/59 94 Room Air 07/05/16 12:35 64 27 109/56 94 Room Air 07/05/16 12:30 65 24 101/53 95 Room Air 07/05/16 12:27 61 16 100 07/05/16 12:24 97.6 68 26 103/79 94 Simple Mask 6.0 07/05/16 12:00 97.8 63 21 139/61 100 Room Air Intake and Output 07/05/16 07/06/16 19:00 07:00 Intake Total 630 ml 600 ml Output Total 0 ml Balance 630 ml 600 ml Intake Oral 480 ml IV Total 150 ml 600 ml Output Estimated Blood Loss 0 ml # Voids 2 3 # Bowel Movements 2 Laboratory Tests 07/05/16 20:20: Urine Random Sodium 102 07/06/16 04:25: White Blood Count 10.3, Red Blood Count 3.81L, Hemoglobin 10.8L, Hematocrit 32.6L, Mean Corpuscular Volume 86, Mean Corpuscular Hemoglobin 28.2, Mean Corpuscular Hemoglobin Concent 33.0, Red Cell Distribution Width 13.0, Platelet Count 309, Mean Platelet Volume 6.4L, Neutrophils (%) (Auto) 69.1, Lymphocytes ( %) (Auto) 17.9L, Monocytes (%) (Auto) 10.6H, Eosinophils (%) (Auto) 1.3, Basophils (%) (Auto) 1.1, Sodium Level 131L, Potassium Level 4.0, Chloride Level 95L, Carbon Dioxide Level 24, Anion Gap 12, Blood Urea Nitrogen 7, Creatinine 1.2, Estimat Glomerular Filtration Rate , Glucose Level 166H, Hemoglobin A1c 8.4H, Uric Acid 3.9, Calcium Level 9.2, Phosphorus Level 2.8, Magnesium Level 1.8, Total Bilirubin 0.5, Aspartate Amino Transf (AST/SGOT) 14, Alanine Aminotransferase (ALT/SGPT) 9, Alkaline Phosphatase 69, C-Reactive Protein, Quantitative < 0.3, Pro-B-Type Natriuretic Peptide 2001H, Total Protein 6.6, Albumin 3.7, Globulin 2.9, Albumin/Globulin Ratio 1.2, Triglycerides Level 134, Cholesterol Level 113, LDL Cholesterol 54L, HDL Cholesterol 32, Cholesterol/HDL Ratio 3.5 Height (Feet): 4 Height (Inches): 11.00 Weight (Pounds): 120 Neck: supple Cardiovascular: normal rate Respiratory/Chest: lungs clear Abdomen: soft Zuleika Wilkerson MD July 06, 2016 09:26
--- NOTE | 2016-07-06 10:54 | General Progress Note ---
Assessment/Plan Status: stable Status Narrative Na up 131 Assessment/Plan status: Low Na likely depletional- improved GI bleed: been on NSAIDs DM- CAD GERD HTN Plan: DC IV Endoscopy- Gastritis Protonix monitor lytes Ok to Dc from renal stand Subjective ROS Limited/Unobtainable: No Allergies: Coded Allergies: No Known Allergies (Unverified , 05/28/12) Objective Last 24 Hour Vital Signs Date Time Temp Pulse Resp B/P Pulse Ox O2 Delivery O2 Flow Rate FiO2 07/06/16 08:59 60 112/58 07/06/16 08:45 97.7 60 15 112/58 98 Room Air 07/06/16 04:00 98.1 55 18 127/66 100 Room Air 07/06/16 00:00 98.4 58 18 124/59 100 Room Air 07/05/16 20:00 97.3 60 18 124/58 95 Room Air 07/05/16 16:14 97.8 64 21 107/52 96 Room Air 07/05/16 13:40 62 22 96 07/05/16 13:10 97.6 62 23 121/56 96 Room Air 07/05/16 13:00 60 22 124/58 95 Room Air 07/05/16 12:50 63 24 119/58 96 Room Air 07/05/16 12:40 65 23 116/59 94 Room Air 07/05/16 12:35 64 27 109/56 94 Room Air 07/05/16 12:30 65 24 101/53 95 Room Air 07/05/16 12:27 61 16 100 07/05/16 12:24 97.6 68 26 103/79 94 Simple Mask 6.0 07/05/16 12:00 97.8 63 21 139/61 100 Room Air Intake and Output 07/05/16 07/06/16 19:00 07:00 Intake Total 630 ml 600 ml Output Total 0 ml Balance 630 ml 600 ml Intake Oral 480 ml IV Total 150 ml 600 ml Output Estimated Blood Loss 0 ml # Voids 2 3 # Bowel Movements 2 Laboratory Tests 07/05/16 20:20: Urine Random Sodium 102 07/06/16 04:25: White Blood Count 10.3, Red Blood Count 3.81L, Hemoglobin 10.8L, Hematocrit 32.6L, Mean Corpuscular Volume 86, Mean Corpuscular Hemoglobin 28.2, Mean Corpuscular Hemoglobin Concent 33.0, Red Cell Distribution Width 13.0, Platelet Count 309, Mean Platelet Volume 6.4L, Neutrophils (%) (Auto) 69.1, Lymphocytes ( %) (Auto) 17.9L, Monocytes (%) (Auto) 10.6H, Eosinophils (%) (Auto) 1.3, Basophils (%) (Auto) 1.1, Sodium Level 131L, Potassium Level 4.0, Chloride Level 95L, Carbon Dioxide Level 24, Anion Gap 12, Blood Urea Nitrogen 7, Creatinine 1.2, Estimat Glomerular Filtration Rate , Glucose Level 166H, Hemoglobin A1c 8.4H, Uric Acid 3.9, Calcium Level 9.2, Phosphorus Level 2.8, Magnesium Level 1.8, Total Bilirubin 0.5, Aspartate Amino Transf (AST/SGOT) 14, Alanine Aminotransferase (ALT/SGPT) 9, Alkaline Phosphatase 69, C-Reactive Protein, Quantitative < 0.3, Pro-B-Type Natriuretic Peptide 2001H, Total Protein 6.6, Albumin 3.7, Globulin 2.9, Albumin/Globulin Ratio 1.2, Triglycerides Level 134, Cholesterol Level 113, LDL Cholesterol 54L, HDL Cholesterol 32, Cholesterol/HDL Ratio 3.5 Height (Feet): 4 Height (Inches): 11.00 Weight (Pounds): 120 General Appearance: no apparent distress Objective no change in PE LUCRECIA MELLO July 06, 2016 10:54
[2016-07-06 12:00] VITALS: BP 147/73
[2016-07-06] MEDS ORDERED: AZOPT 1% BOTH EYES SCH (13:00)
[2016-07-06] MEDS ORDERED: OPTH BOTH EYES SCH (13:00)
[2016-07-06] MEDS ORDERED: D5NS 1000ml IV ONE (13:52)
[2016-07-06] MEDS ORDERED: NS 275ml ONE (14:15)
[2016-07-06] MEDS ORDERED: COMBIGAN OPTH BOTH EYES SCH (18:00)
--- NOTE | 2016-07-06 21:41 | General Progress Note ---
Assessment/Plan Assessment/Plan Assessment - BRBPR - Negative EGD - mild and stable anemia Recommendations - patient to contact Dr. Vahe Fish fo rappt - Return to ER if recurrent BRBPR - advised needs colonoscopy to r/o CA Subjective Allergies: Coded Allergies: No Known Allergies (Unverified , 05/28/12) Subjective seen earlier today upon my arrival, was fully clothed and about to be d/c'd Feels OK for d/c today no further rectal bleeding d/w family advised to f/u with Dr. Bashir Fish needs colonoscopy Objective Last 24 Hour Vital Signs Date Time Temp Pulse Resp B/P Pulse Ox O2 Delivery O2 Flow Rate FiO2 07/06/16 12:00 97.9 67 18 147/73 98 Room Air 07/06/16 08:59 60 112/58 07/06/16 08:45 97.7 60 15 112/58 98 Room Air 07/06/16 04:00 98.1 55 18 127/66 100 Room Air 07/06/16 00:00 98.4 58 18 124/59 100 Room Air Intake and Output 07/05/16 07/06/16 19:00 07:00 Intake Total 630 ml 600 ml Output Total 0 ml Balance 630 ml 600 ml Intake Oral 480 ml IV Total 150 ml 600 ml Output Estimated Blood Loss 0 ml # Voids 2 3 # Bowel Movements 2 Laboratory Tests 07/06/16 04:25: White Blood Count 10.3, Red Blood Count 3.81L, Hemoglobin 10.8L, Hematocrit 32.6L, Mean Corpuscular Volume 86, Mean Corpuscular Hemoglobin 28.2, Mean Corpuscular Hemoglobin Concent 33.0, Red Cell Distribution Width 13.0, Platelet Count 309, Mean Platelet Volume 6.4L, Neutrophils (%) (Auto) 69.1, Lymphocytes ( %) (Auto) 17.9L, Monocytes (%) (Auto) 10.6H, Eosinophils (%) (Auto) 1.3, Basophils (%) (Auto) 1.1, Sodium Level 131L, Potassium Level 4.0, Chloride Level 95L, Carbon Dioxide Level 24, Anion Gap 12, Blood Urea Nitrogen 7, Creatinine 1.2, Estimat Glomerular Filtration Rate , Glucose Level 166H, Hemoglobin A1c 8.4H, Uric Acid 3.9, Calcium Level 9.2, Phosphorus Level 2.8, Magnesium Level 1.8, Total Bilirubin 0.5, Aspartate Amino Transf (AST/SGOT) 14, Alanine Aminotransferase (ALT/SGPT) 9, Alkaline Phosphatase 69, C-Reactive Protein, Quantitative < 0.3, Pro-B-Type Natriuretic Peptide 2001H, Total Protein 6.6, Albumin 3.7, Globulin 2.9, Albumin/Globulin Ratio 1.2, Triglycerides Level 134, Cholesterol Level 113, LDL Cholesterol 54L, HDL Cholesterol 32, Cholesterol/HDL Ratio 3.5 Height (Feet): 4 Height (Inches): 11.00 Weight (Pounds): 120 Objective WDWN NCAT supple CTA RRR Soft ND NT No edema non focal ESTEBAN SORENSEN July 06, 2016 21:41
--- NOTE | 2016-07-07 04:32 | Consultation ---
DATE OF CONSULTATION: 07/06/2016 HEMATOLOGY/ONCOLOGY CONSULTATION: REASON FOR CONSULTATION: GI bleed and anemia. REQUESTING PHYSICIAN: Zuleika Wilkerson M.D. CURRENT COMPLAINT/HISTORY OF PRESENT ILLNESS: Dear Dr. Wilkerson , Today, I had an opportunity to see one of your patients, who as you are aware is an 86-year-old delightful gentleman with a past medical history remarkable for rectal bleeding, hyponatremia, anemia, history of hypertension, dyslipidemia, glaucoma, neuropathy, chronic pain syndrome, diabetes mellitus, and GI bleed. During evaluation, it was found the patient had a significant anemia. The patient was seen by cutter first, Dr. Cotter. history of anemia. PAST MEDICAL HISTORY: 1. History of anemia of chronic disease. 2. Hypertension. 3. Coronary artery disease. 4. Dyslipidemia. 5. Glaucoma. 6. Neuropathy. 7. Non-insulin dependent diabetes mellitus. 8. GERD. 9. Degenerative joint disease. 10. Chronic pain syndrome. MEDICATIONS: 1. Glucophage. 2. Prilosec. 3. Zocor. 4. Atenolol. 5. Gabapentin. 6. Citalopram. 7. Flexeril . 8. Aspirin. 9. . ALLERGIES: NKDA. SOCIAL HISTORY: No history of smoking. No history of alcohol abuse. FAMILY HISTORY: Noncontributory. REVIEW OF SYSTEMS: General Description: The patient is not in any significant distress. Respiratory: Mild shortness of breath on exertion. Gastrointestinal: The patient claims constipation. Neuromuscular System: The patient claims muscle aches. PHYSICAL EXAMINATION: VITAL SIGNS: T-max 97 degrees, respiratory rate 20, heart rate 80, and blood pressure 140/80. HEENT: Head is normocephalic and atraumatic. NECK: Supple. No thyroid enlargement. No lymphadenopathy. LUNGS: Decreased breath sounds bilaterally with few rhonchi in the base. HEART: S1 and S2 regular. ABDOMEN: Soft and benign. No organomegaly present. Bowel sounds present. EXTREMITIES: No cyanosis, clubbing, or edema. LABORATORY DATA: WBC 10.3, hemoglobin 10.8, hematocrit 32.6, and platelets 309,000. Coagulation, INR 1.0. Chemistry show creatinine 1.2 and glucose 166. IMPRESSION: 1. Anemia secondary to rectal bleed. 2. Anemia of chronic disease. 3. Anemia of iron deficiency. 4. Decrease hemoglobin and hematocrit secondary to gastrointestinal bleed. 5. Leukocytosis with left shift. 6. Coronary artery disease. 7. Hypertension. 8. Dyslipidemia. 9. History of glaucoma. 10. Diabetes mellitus. 11. Gastrointestinal bleed. 12. Chronic pain syndrome. 13. History of neuropathy. 14. Degenerative joint disease. 15. Hyponatremia. 16. Rule out . 17. Malnutrition. 18. Failure to thrive. RECOMMENDATION: 1. Watch count. 2. Watch coagulopathy. 3. PRBC transfusion on p.r.n. basis. 4. GI evaluation. 5. Anemia workup to be completed. 6. Close followup. 7. Skin care. 8. Nutrition. 9. We will continue current treatment. 10. Discussed with the staff. Regino Ochoa MD DR: Isidro JOB#: [id number] CC:
--- NOTE | 2016-07-09 10:35 | Discharge Summary ---
Discharge Summary Hospital Course Date of Admission July 04, 2016 at 16:35 Date of Discharge July 06, 2016 at 15:45 Admitting Diagnosis GI Bleed HPI Axel Madrid is a 86 year old male who was admitted on July 04, 2016 at 16 :35 for Gastrointestinal Bleed Hospital Course dc summary #[id number] Discharge Medications Continued Medications: Amlodipine Besylate* (Amlodipine Besylate*) 5 Mg Tablet 5 MG ORAL DAILY, TAB Aspirin* (Aspir-Low*) 81 Mg Tablet.dr 81 MG PO DAILY Benazepril Hcl* (Benazepril Hcl*) 40 Mg Tablet 40 MG ORAL DAILY, TAB Brimonidine Tartrate/Timolol (Combigan Eye Drops) 5 Ml Drops 5 ML BOTH EYES DAILY Brinzolamide (Azopt) 10 Ml Drops.susp Unknown Dose OP Cyclobenzaprine Hcl* (Flexeril*) 10 Mg Tablet 10 MG PO TID, #15 TAB Gabapentin* (Gabapentin*) 300 Mg Capsule 300 MG ORAL THREE TIMES A DAY, CAP 0 Refills Hydrocodone Bit/Acetaminophen 5-325* ([place] 5-325*) 1 Each Tablet 1 TAB ORAL Q4H PRN for For Pain, TAB 0 Refills Latanoprost* (Xalatan*) 2.5 Ml Drops Unknown Dose BOTH EYES BEDTIME, ML 0 Refills Lidocaine (Lidoderm) 700 Mg Adh..patch 700 MG TP 3XW PRN Metformin Hcl* (Glucophage*) 500 Mg Tablet 750 MG ORAL DAILY, #10 TAB Omeprazole (Prilosec) 20 Mg Capsule.dr 40 MG ORAL BID, #15 TAB Simvastatin (Zocor) 40 Mg Tablet 10 MG ORAL DAILY, TAB Timolol Maleate/Pf (Timoptic 0.5% Ocudose Drop) 1 Each Droperette Unknown Dose OP Travoprost (Benzalkonium) (Travatan 0.004% Eye Drop) 2.5 Ml Drops 2.5 ML RIGHT EYE QHS Discharge Condition Upon Discharge: stable Discharge Disposition Patient was discharged to Home with Home Health(06) Discharge Diagnoses: Discharge Instructions Discharge Instructions Special Instructions I have been assigned to complete a D/C Summary on this account. I was not involved in the patient management Shaista Reyes NP (Vanchtein) July 09, 2016 10:35
--- NOTE | 2016-07-09 23:45 | Discharge Summary 2 SIG ---
DATE OF ADMISSION: 07/04/2016 DATE OF DISCHARGE: 07/06/2016 REASON FOR ADMISSION: The patient is an 86-year-old male, presented to the emergency room with 6 days of vomiting dark blood and passing blood per rectum. He complained of dizziness. He also reported diarrhea six times at the day of presentation. According to the patient it was a mckayla blood. He reported epigastric pain. The patient stated that he had these episodes in the past but never had any studies done. No coffee-ground material but slight dark blood in the vomit. The pain in the stomach described as burning, pressure like, constant, nonradiating, 10/10 on a scale 1 to 10. The patient is not in acute distress. The patient denied chest pain, shortness of breath, fever, chills. The patient takes a medication for arthritis, not remember which one but denies any blood thinner. Workup in the emergency room revealed no leukocytosis, stable hemoglobin and hematocrit, hemoglobin 11.7, hematocrit 32.6. Sodium low 125. Urinalysis negative for urinary tract infection. EKG shows normal sinus rhythm, no acute ischemic changes. Chest x-ray revealed atelectasis at the right base versus scaring. The patient admitted for further management. ADMITTING DIAGNOSES: Include: 1. Gastrointestinal hemorrhage. 2. Epigastric pain. 3. Hyponatremia. HOSPITAL STAY: The patient admitted. GI consult was requested. The patient undergone subsequently an upper endoscopy with biopsy which revealed gastric polyps, status post biopsy and gastritis, status post biopsy. According to the GI follow up biopsy results and treat accordingly. The patient was on the gastrointestinal prophylaxis. No further episodes of bleeding. The patient initially NPO, on the IV fluids. Sodium up from initial 125 to 131, prior to discharge. The patient started on the diet, and advanced as tolerated, able to tolerate diet. Antiemetic provided as needed. According to the gastrointestinal, the patient was stable for discharge. Hse Coordinator closely followed. Per speech language pathologist prn, hyponatremia likely depletional , improved with IV hydration. Electrolytes and renal parameters were closely monitored. Blood sugar was managed with sliding scale of insulin. Hemoglobin A1c -8.4, not at goal, need further optimization of blood sugar as outpatient. Blood pressure was managed with calcium channel zack and was stable. Pain specialist followed. Pain was addressed and managed. The patient was counseled to return to emergency department if recurrent blood in stool or emesis noted. The patient was also counseled that he needs an outpatient colonoscopy. DISCHARGE DIAGNOSES: : 1. Gastrointestinal hemorrhage likely secondary to nonsteroidal anti- inflammatory medications. 2. Epigastric pain. 3. Hyponatremia, likely depletional. 4. Status post upper endoscopy with biopsy. 5. Gastric polyp. 6. Gastritis. 7. Diabetes mellitus. 8. Hypertension. 9. Gastroesophageal reflux disease. DISCHARGE MEDICATIONS: See medication reconciliation list. DISCHARGE INSTRUCTIONS: The patient discharged home with home health services. Followup with the primary medical doctor. Zuleika Wilkerson M.D. I have been assigned to dictate discharge summary on this account and I was not involved in the patient's management. Shaista [facility] CampusManish N.PElizabeth DR: Jeffrey JOB#: [id number] CC: SUSY
== END 2016-07-06 15:45 | disposition home health service (06) | DRG 378 ==
LOC: EDBD 15:18 → EMR 15:46 → 4E 16:35 → EDBEDREQ 16:48 → 4E 07-05 09:56
PROC: 0DB68ZX Excision of Stomach, Via Natural or Artificial Opening Endoscopic, Diagnostic (ICD-10-PCS; principal; 2016-07-05 12:10)
DX: K92.2 Gastrointestinal hemorrhage, unspecified (principal); E87.1 Hypo-osmolality and hyponatremia; E11.9 Type 2 diabetes mellitus without complications; D50.0 Iron deficiency anemia secondary to blood loss (chronic); R62.7 Adult failure to thrive; I10 Essential (primary) hypertension; K31.7 Polyp of stomach and duodenum; I25.10 Atherosclerotic heart disease of native coronary artery without angina pectoris; E78.5 Hyperlipidemia, unspecified; G89.4 Chronic pain syndrome; M47.812 Spondylosis without myelopathy or radiculopathy, cervical region; M47.816 Spondylosis without myelopathy or radiculopathy, lumbar region; M50.30 Other cervical disc degeneration, unspecified cervical region; M51.16 Intervertebral disc disorders with radiculopathy, lumbar region; D50.9 Iron deficiency anemia, unspecified; D72.829 Elevated white blood cell count, unspecified; K29.70 Gastritis, unspecified, without bleeding; T39.315A Adverse effect of propionic acid derivatives, initial encounter; Y92.009 Unspecified place in unspecified non-institutional (private) residence as the place of occurrence of the external cause; K21.9 Gastro-esophageal reflux disease without esophagitis
CPT/HCPCS: 36415; 71010; 74000; 80053; 80061; 81003; 83036; 83690; 83735; 83880; 83930; 84100; 84300; 84443; 84484; 84550; 85025; 85610; 85730; 86140; 86850; 86900; 86901; 90732; 93005; 94003; 94150; J2405

== ENCOUNTER 2018-08-08 17:11 | Inpatient (IN) | payer MEDICARE, MEDICAID ==
[~2018-08-08] VITALS: Ht 160 cm; Wt 47.6 kg
[~2018-08-08 17:11] MED LIST changes: +AKTOB1 DROP BOTH EYES; +AMLODIPINE BESYL5 MG ORAL; +AZOPT10 ML OP; +BENAZEPRIL HCL40 MG ORAL; +GABAPENTIN300 MG ORAL; +LATANOPROST2.5 ML BOTH EYES; +MELOXICAM15 MG PO; +NORCO 5-325 TA1 EACH ORAL; +TIMOPTIC 0.5%1 EACH OP
--- NOTE | 2018-08-08 17:11 | NUR ---
ED Nurse Note: PT BROUGHT IN TO ER TODAY FROM HOME BY R26. AOX4. PT C/O NONRADIATING, MEDIAL CHEST PAIN, 5/10 X YESTERDAY AFTERNOON AROUND 1200. AT BEDSIDE, HR 76, NORMAL SINUS RHYTHM ON CLIENT RELATIONS REPRESENTATIVE. PT DENIES NAUSEA OR VOMITING.
[2018-08-08 17:27] VITALS: BP 152/67
[2018-08-08] MEDS ORDERED: GLIPIZIDE-METF1 EAC2 PO (17:27)
[2018-08-08] MEDS ORDERED: DECLOMYCIN150 MG ORAL (17:27)
[2018-08-08] MEDS ORDERED: PLAVIX75 MG ORAL (17:27)
--- NOTE | 2018-08-08 17:28 | NUR ---
ED Nurse Note: PT TO CT VIA NELLY.
--- NOTE | 2018-08-08 17:29 | Emergency Room Report ---
History of Present Illness General Chief Complaint: Chest Pain Source: Patient, Family Member, EMS Present Illness HPI Patient is an 88-year-old male who presented after increased chest pain intermittent in nature for the past 2 days. Patient reports having onset of symptoms approximately noon 2 days ago. He reports having intermittent episodes of pressure-like sensation to his chest. Recently been hospitalized at [facility] and had been diagnosed with a stroke and was started on Plavix. Patient had not been having any fever. He not been vomiting. Allergies: Coded Allergies: No Known Allergies (Unverified , 05/28/12) Patient History Past Medical History: see triage record, CVA/TIA Reviewed Nursing Documentation: PMH: Agreed; PSxH: Agreed Nursing Documentation-PMH Hx Cardiac Problems: Yes Hx Hypertension: Yes Hx Diabetes: Yes Hx Cancer: No Hx Gastrointestinal Problems: No Hx Neurological Problems: No Review of Systems All Other Systems: negative except mentioned in HPI Physical Exam Vital Signs Date Time Temp Pulse Resp B/P (MAP) Pulse Ox O2 Delivery O2 Flow Rate FiO2 08/08/18 17:07 98.4 76 22 148/77 (100) 98 Room Air Sp02 EP Interpretation: reviewed, normal General Appearance: normal inspection, well appearing, no apparent distress, alert, GCS 15, non-toxic Head: atraumatic ENT: normal ENT inspection, hearing grossly normal, normal voice Neck: normal inspection, full range of motion, supple, no bony tend Respiratory: normal inspection, lungs clear, normal breath sounds, no respiratory distress, no retraction, no wheezing Cardiovascular #1: regular rate, rhythm, no edema Gastrointestinal: normal inspection, normal bowel sounds, non tender, soft, no guarding, no hernia Genitourinary: no CVA tenderness Musculoskeletal: normal inspection, back normal, normal range of motion Neurologic: normal inspection, alert, responsive, speech normal Psychiatric: normal inspection, judgement/insight normal, mood/affect normal Procedures Critical Care Time Critical Care Time Patient had a critical medical condition which untreated could potentially result in life or limb threatening injury. Total critical care time excluding procedures approximately 45 minutes. Medical Decision Making Diagnostic Impression: Primary Impression: Chest pain Additional Impressions: Renal mass Hyponatremia ER Course Patient presented for chest pain. Differential diagnosis included but was not limited to acute coronary syndrome, pulmonary embolism, pneumonia, aortic dissection, shingles, pneumothorax, aortic dissection, esophageal rupture, pericarditis. Because of complexity of patient's case laboratory testing and imaging studies were ordered. EKG interpreted by me showed normal sinus rhythm with a rate of [address] or T wave changes. Patient was started on hypertonic saline due to the severe hyponatremia.patient was noted to have some inverted T waves in lead V1 and V2 CT of the chest read by radiology showed 5 similar complex right renal lesion as well as coronary artery calcification. No central pulmonary embolism. Dr. Zac Alejo was contacted for inpatient management due to panel physician Labs Test 08/08/18 17:27 08/08/18 17:44 08/08/18 18:29 White Blood Count 8.8 K/UL (4.8-10.8) Red Blood Count 3.78 M/UL (4.70-6.10) Hemoglobin 9.4 G/DL (14.2-18.0) Hematocrit 30.0 % (42.0-52.0) Mean Corpuscular Volume 79 FL (80-99) Mean Corpuscular Hemoglobin 25.0 PG (27.0-31.0) Mean Corpuscular Hemoglobin Concent 31.5 G/DL (32.0-36.0) Red Cell Distribution Width 28.8 % (11.6-14.8) Platelet Count 447 K/UL (150-450) Mean Platelet Volume 5.5 FL (6.5-10.1) Neutrophils (%) (Auto) 82.0 % (45.0-75.0) Lymphocytes (%) (Auto) 8.2 % (20.0-45.0) Monocytes (%) (Auto) 8.1 % (1.0-10.0) Eosinophils (%) (Auto) 1.0 % (0.0-3.0) Basophils (%) (Auto) 0.7 % (0.0-2.0) Prothrombin Time 9.9 SEC (9.30-11.50) Prothromb Time International Ratio 0.9 (0.9-1.1) Activated Partial Thromboplast Time 28 SEC (23-33) Sodium Level 117 MMOL/L (136-145) Potassium Level 4.5 MMOL/L (3.5-5.1) Chloride Level 86 MMOL/L (98-107) Carbon Dioxide Level 22 MMOL/L (21-32) Anion Gap 11 mmol/L (5-15) Blood Urea Nitrogen 8 mg/dL (7-18) Creatinine 1.0 MG/DL (0.55-1.30) Estimat Glomerular Filtration Rate mL/min (>60) Glucose Level 197 MG/DL (74-106) Calcium Level 8.7 MG/DL (8.5-10.1) Total Bilirubin 0.3 MG/DL (0.2-1.0) Aspartate Amino Transf (AST/SGOT) 25 U/L (15-37) Alanine Aminotransferase (ALT/SGPT) 22 U/L (12-78) Alkaline Phosphatase 88 U/L (46-116) Troponin I 0.017 ng/mL (0.000-0.056) Pro-B-Type Natriuretic Peptide 2527 pg/mL (0-125) Total Protein 6.1 G/DL (6.4-8.2) Albumin 3.2 G/DL (3.4-5.0) Globulin 2.9 g/dL Albumin/Globulin Ratio 1.1 (1.0-2.7) Urine Random Sodium 58 mmol/L (20-110) Urine Creatinine 14.2 MG/DL (30.0-125.0) EKG Diagnostic Results Rate: normal Rhythm: NSR ST Segments: no acute changes Last Vital Signs Date Time Temp Pulse Resp B/P (MAP) Pulse Ox O2 Delivery O2 Flow Rate FiO2 08/08/18 17:07 98.4 76 22 148/77 (100) 98 Room Air Status: unchanged Disposition: ADMITTED INPATIENT Condition: Stable Dwight Alvarado MD Aug 08, 2018 17:29
[2018-08-08] MEDS ORDERED: Isovue-370 150ml vial INJ PRN (17:30)
--- NOTE | 2018-08-08 17:32 | NUR ---
ED Nurse Note: PER AT BEDSIDE, PT WAS HOSPITALIZED AT [facility] FOR STROKE FROM 07/25-08/03. PT WAS PRESCRIBED PANTOPRAZOLE, METOPROLOL, PLAVIX AND ASPIRIN UPON DISCHARGE FROM [facility].
--- NOTE | 2018-08-08 17:32 | NUR ---
Note betsy in EDM - 08/08/18 at 1909 by CHRISTEN ED Nurse Note: PER AT BEDSIDE, PT WAS HOSPITALIZED AT [facility] FOR STROKE FROM 07/25-08/03. PT WAS GIVEN MEDICATION FOR PANTOPRAZOLE, METOPROLOL AND WAS ALSO PRESCRIBED PLAVIX AND ASPIRIN.
--- NOTE | 2018-08-08 17:36 | NUR ---
ED Nurse Note: PT BACK FROM CT VIA NELLY.
[2018-08-08 17:40] LABS: BASOPHILS % (AUTO) 0.7 % (0.0-2.0); HEMOGLOBIN 9.4 G/DL (14.2-18.0); LYMPHOCYTES % (AUTO) 8.2 % (20.0-45.0); MEAN CORPUSCULAR VOLUME 79 FL (80-99); MONOCYTES % (AUTO) 8.1 % (1.0-10.0); PLATELET COUNT 447 K/UL (150-450); RED BLOOD COUNT 3.78 M/UL (4.70-6.10); RED CELL DISTRIBUTION WIDTH 28.8 % (11.6-14.8); WHITE BLOOD COUNT 8.8 K/UL (4.8-10.8)
[2018-08-08 17:46] LABS: INR 0.9 (0.9-1.1)
--- NOTE | 2018-08-08 18:16 | Diagnostic Imaging Report ---
EXAM: CT Head Without Intravenous Contrast CLINICAL HISTORY: CP TECHNIQUE: Axial computed tomography images of the head/brain without intravenous contrast. CTDI is 0.15, 70.38 mGy and DLP is 1340 mGy-cm. One or more of the following dose reduction techniques were used: automated exposure control, adjustment of the mA and/or kV according to patient size, use of iterative reconstruction technique. COMPARISON: No relevant prior studies available. FINDINGS: Brain: No acute intracranial hemorrhage, large hypodensity, or significant mass effect. Nonspecific areas of hypoattenuation in the periventricular white matter likely represent the sequela of chronic small vessel ischemic disease. Ventricles: Ventricular and sulcal prominence commensurate with the patient's age. Bones/joints: Unremarkable. No acute fracture. Soft tissues: Unremarkable. Sinuses: Unremarkable. Mastoid air cells: Unremarkable. IMPRESSION: No acute intracranial abnormality.
[2018-08-08 18:20] LABS: ALANINE AMINOTRANSFERASE 22 U/L (12-78); ALBUMIN 3.2 G/DL (3.4-5.0); ALBUMIN/GLOBULIN RATIO 1.1 (1.0-2.7); ALKALINE PHOSPHATASE 88 U/L (46-116); ANION GAP 11 mmol/L (5-15); ASPARTATE AMINO TRANSFERASE 25 U/L (15-37); BILIRUBIN,TOTAL 0.3 MG/DL (0.2-1.0); BLOOD UREA NITROGEN 8 mg/dL (7-18); CALCIUM 8.7 MG/DL (8.5-10.1); CARBON DIOXIDE 22 MMOL/L (21-32); CHLORIDE 86 MMOL/L (98-107); POTASSIUM 4.5 MMOL/L (3.5-5.1)
[2018-08-08 18:22] LABS: SODIUM 117 MMOL/L (136-145)
--- NOTE | 2018-08-08 18:44 | NUR ---
ED Nurse Note: PT TO CT VIA NELLY.
[2018-08-08] MEDS ORDERED: NaCl 3% 500ml 250 ML IV ONE (18:45)
--- NOTE | 2018-08-08 19:02 | NUR ---
ED Nurse Note: PT BACK FROM CT VIA NELLY.
--- NOTE | 2018-08-08 19:18 | NUR ---
ED Nurse Note: REPORT GIVEN TO LEVI VASQUEZ.
--- NOTE | 2018-08-08 19:55 | Diagnostic Imaging Report ---
EXAM: CT Angiography Chest With Intravenous Contrast CLINICAL HISTORY: Chest pain TECHNIQUE: Axial computed tomographic angiography images of the chest with intravenous contrast using pulmonary embolism protocol. CTDI is 0.17, 12. 62, 12.62, 16.23 mGy and DLP is 568 mGy-cm. One or more of the following dose reduction techniques were used: automated exposure control, adjustment of the mA and/or kV according to patient size, use of iterative reconstruction technique. MIP reconstructed images were created and reviewed. COMPARISON: No relevant prior studies available. FINDINGS: Artifacts: Motion. Pulmonary arteries: No central pulmonary embolus. Aorta: Aortic atherosclerosis. No thoracic aortic aneurysm or dissection. Lungs: Mild bilateral dependent densities are favored to represent atelectasis. No mass. No consolidation. Pleural space: No significant effusion. No pneumothorax. Heart: Coronary artery calcification. Bones/joints: No acute fracture. Soft tissues: Unremarkable. Lymph nodes: No enlarged lymph nodes. Kidneys and ureters: A 5 cm complex partially exophytic lobulated right renal mass with punctate calcifications is suboptimally characterized. IMPRESSION: No central pulmonary embolus. 5 cm complex right renal lesion. Malignancy is not excluded. Nonemergent multiphase renal protocol CT or MRI may be considered for further characterization, as clinically indicated. <MYCVCSECTION> [employer] 08/08/18 20:02 Verify Receipt Verified receipt with SUNNY Lewis. Report given to Dr. Alvarado on 08/08 20:02 (-07:00)
--- NOTE | 2018-08-08 20:28 | NUR ---
ED Nurse Note: CAlled and gave report to Narda SIMS. Patient transported to floor by ERtcorbin and RN without incident.
[2018-08-08 21:00] VITALS: BP_SYST 136; BP_SYST 78; BP_DIAS 78
--- NOTE | 2018-08-08 21:00 | NUR ---
NURSE NOTES: received pt from ER with DX of hyponatremia and CP. pt AOx4, Bahraini speaking. no acute distress noted. belonging form signed and placed in chart. bed locked and lowest position, call light and personal belonging within reach. will continue to monitor pt for any change in condition.
[2018-08-08] MEDS ORDERED: Milk of Magnesia 30ml Ud ORAL PRN (21:15)
[2018-08-08] MEDS ORDERED: Zolpidem 5mg tab ORAL PRN (21:15)
--- NOTE | 2018-08-08 22:00 | NUR ---
NURSE NOTES: 's orders noted and carried out.
[2018-08-08] MEDS: Morphine Sulfate 4mg/ml Inj (IV USE ONLY) IVP PRN (22:10)
[2018-08-08] MEDS: Demeclocycline 150mg tab ORAL SCH (22:13)
[2018-08-09] VITALS: BP 121/62
--- NOTE | 2018-08-09 02:03 | NUR ---
NURSE NOTES: pt refusing wound care. education provided about preventing the pressure ulcer getting worse if we do not take care of the wound, pt still refusing wound care. order for wound care nurse consult placed. will continue to monitor for any change in condition.
[2018-08-09 04:00] VITALS: BP 123/65
--- NOTE | 2018-08-09 04:00 | NUR ---
NURSE NOTES: pt in bed resting. no change in condition. will continue for change in condition.
[2018-08-09] MEDS: NovoLOG Insulin Flexpen SUBQ SCH ×4 (05:36→20:30)
--- NOTE | 2018-08-09 06:30 | NUR ---
NURSE NOTES: pt remains stable, no change in condition. all needs met during my shift. bed locked and lowest position. bed side rail up x2. will endorse plan of care to incoming nurse.
--- NOTE | 2018-08-09 07:43 | NUR ---
HAND-OFF: Report given to LEVI Kidd.
[2018-08-09 08:00] VITALS: BP 131/74
--- NOTE | 2018-08-09 08:02 | NUR ---
Pt in bed just had breakfast. Pt on surveillance system monitor no signs of cardiac or respiratory distress this time. Bed locked and in lowest position. Call light next to pt. Pt AO X 4. Will continue to follow plan of care.
[2018-08-09 08:20] LABS: ANION GAP 11 mmol/L (5-15); BLOOD UREA NITROGEN 8 mg/dL (7-18); CALCIUM 9.2 MG/DL (8.5-10.1); CARBON DIOXIDE 23 MMOL/L (21-32); CHLORIDE 90 MMOL/L (98-107); CHOLESTEROL 85 MG/DL (< 200); CREATININE 0.8 MG/DL (0.55-1.30); HDL CHOLESTEROL 32 MG/DL (40-60); POTASSIUM 4.6 MMOL/L (3.5-5.1); SODIUM 124 MMOL/L (136-145); TRIGLYCERIDES 131 MG/DL (30-150)
[2018-08-09] MEDS: Benazepril 10mg tab ORAL SCH (08:51)
[2018-08-09] MEDS: Morphine Sulfate 4mg/ml Inj (IV USE ONLY) IVP PRN (08:51)
[2018-08-09] MEDS: Aspirin Baby 81mg ORAL SCH (08:52)
--- NOTE | 2018-08-09 10:19 | Consultation ---
Consult Note Consult Note Cardiology for Dr Pozo Full consult dictated #[id number] Celestina Roman MD Aug 09, 2018 10:19
[2018-08-09] MEDS: Demeclocycline 150mg tab ORAL SCH ×2 (11:13→20:28)
[2018-08-09 12:00] VITALS: BP 126/69
--- NOTE | 2018-08-09 12:25 | History & Physical ---
History and Physical History & Physicial HP dictated # [id number] Zac Alejo MD Aug 09, 2018 12:25
[2018-08-09] MEDS: Magnesium Oxide 400mg tab ORAL SCH ×2 (12:47→18:01)
--- NOTE | 2018-08-09 13:40 | NUR ---
RD ASSESSMENT & RECOMMENDATIONS SEE CARE ACTIVITY FOR COMPLETE ASSESSMENT DAILY ESTIMATED NEEDS: Needs based on Wound, underweight 47.7kg 30-35 kcals/kg 1015-3167 total kcals 1.25-1.5 g protein/kg 60-72 g total protein 25-30ml/kcal mL/kg 4016-3145 total fluid mLs NUTRITION DIAGNOSIS: Increased kcal and pro needs r/t underweight status and wound healing as evidenced by pt is 85% of [place] Body weight w/ stage 2 sacral wound. CURRENT DIET: CCHO MED soft easy chew PO DIET RECOMMENDATIONS: Liberalized Regular diet + Glucerna TID ADDITIONAL RECOMMENDATIONS: 1) Obtain a standing weight OR calibrated bed scale wt 2) Wound care: SHIRA BID Vit C 250mg daily 3) Add Glucerna 1 tetra dustin TID w/ meals 4) STOCK PITCHER eval for appropriate texture 5) Monitor need for fluid restriction (Na now trending up)
--- NOTE | 2018-08-09 13:45 | NUR ---
RD ASSESSMENT & RECOMMENDATIONS SEE CARE ACTIVITY FOR COMPLETE ASSESSMENT DAILY ESTIMATED NEEDS: Needs based on Wound, underweight 47.7kg 30-35 kcals/kg 6379-1301 total kcals 1.25-1.5 g protein/kg 60-72 g total protein Fluid per MD: 800ml/day NUTRITION DIAGNOSIS: Increased kcal and pro needs r/t underweight status and wound healing as evidenced by pt is 85% of [place] Body weight w/ stage 2 sacral wound. CURRENT DIET: CCHO MED soft easy chew +800ml fluid restriction PO DIET RECOMMENDATIONS: Liberalized Regular diet + Glucerna TID Fluid per MD ------ ADDITIONAL RECOMMENDATIONS: 1) Obtain a standing weight OR calibrated bed scale wt 2) Wound care: SHIRA BID - HOLD w/ fluid restriction Vit C 250mg daily 3) Add Glucerna 1 tetra dustin TID w/ meals- HOLD w/ fluid restriction 4) HOGSHEAD STRIPPER eval for appropriate texture 5) Monitor need for fluid restriction (Na now trending up)
[2018-08-09 16:00] VITALS: BP 123/62
--- NOTE | 2018-08-09 16:45 | Consultation ---
DATE OF CONSULTATION: 08/09/[address]age [address] Dr. Pozo. CONSULTING PHYSICIAN: Celestina Roman M.D. REFERRING PHYSICIAN: Zac Alejo M.D. REASON FOR CONSULT: Chest pain. HISTORY OF PRESENT ILLNESS: History is obtained from the chart and the patient's son translating as the patient is Turkish speaking. The patient is an 88-year-old man with history of hypertension, type 2 diabetes, hyperlipidemia, and possible recent CVA who presents with intermittent substernal chest pain over the two days prior to admission. He reports onset while at rest. Chest pain is pressure like, nonradiating, and there are no associated symptoms of dyspnea, nausea, vomiting, or diaphoresis. He reports that symptoms occurred last night and were somewhat improved after drinking water. He presented to the emergency room where his blood pressure was 148/77, pulse 76, pulse oximetry 98% on room air. He underwent a CT angiogram of the chest, which showed no pulmonary embolus. His initial troponin level was 0.017 and EKG showed inverted T-waves V1 to V3. He was admitted for further treatment. His recent past medical history is significant for hospitalization with discharge about 4 days ago, at [facility]. He reports presenting there with right arm weakness and had been diagnosed with a stroke. Plavix was started. MEDICATIONS: Currently Xalatan eye drops 1 drop to both eyes at bedtime, aspirin 81 mg daily, amlodipine 5 mg daily, Lotensin 5 mg daily, Plavix 75 mg daily, insulin regular sliding scale, Declomycin 300 mg q.12 hours, Neurontin 300 mg 3 times daily, Tylenol p.r.n., Pepcid 20 mg twice daily, Ambien p.r.n. ALLERGIES: No known drug allergies. PAST MEDICAL HISTORY: As noted above. Also history of hyponatremia on Declomycin, history of hypertension, diabetes, hyperlipidemia, and recent CVA. SOCIAL HISTORY: The patient is a nonsmoker. Has no history of alcohol or drug abuse. FAMILY HISTORY: Noncontributory. REVIEW OF SYSTEMS: Negative except as per HPI. PHYSICAL EXAMINATION: VITAL SIGNS: Blood pressure is 131/74, pulse 79 and regular, respirations 20, afebrile. GENERAL: Alert, elderly-appearing male, in no acute distress. HEENT: Normocephalic and atraumatic. Pupils are equal, round, and reactive to light. Sclerae anicteric. Extraocular movements intact. Oral mucosa are moist. Dentition fair with missing lower front teeth. NECK: Supple. There is no jugular venous distention. No thyromegaly. Carotid pulses are 2+ bilaterally with normal upstrokes and no bruits. LUNGS: Clear to auscultation bilaterally. HEART: Regular rate and rhythm. S1, S2. S4 is present. ABDOMEN: Soft, nontender. No palpable mass. No hepatosplenomegaly. EXTREMITIES: No cyanosis, clubbing, or edema. NEUROLOGIC: There is mild motor weakness 4/5 of the right upper extremity versus left, 5/5 lower extremity strength. Normal light touch sensation. The patient is alert and oriented x3. SKIN: No rashes or lesions. LABORATORY DATA: Sodium on admission 117 and repeat this morning 124, potassium 4.6, BUN 8, and creatinine 0.8. Troponin was 0.017 on admission and repeat 0.009. ProBNP 2527. Hemoglobin 9.4, hematocrit 30, white blood count 8800. Urine sodium is 58. EKG shows sinus rhythm, rate of 70 beats per minute. Normal axis 0 degrees. Inverted T-waves V1 to V3. No ST-segment changes. Chest x-ray is pending. Chest CT done in the emergency room showed no pulmonary embolus. The report includes a report of a 5 cm lobulated right renal mass. ASSESSMENT AND RECOMMENDATIONS: The patient is an 88-year-old man with history of hypertension, hyperlipidemia, type 2 diabetes, recent CVA, and hyponatremia who was admitted with hyponatremia and chest pain. His pain is somewhat atypical for angina as it began at rest and was improved with drinking fluids. His EKG however is abnormal with T-wave inversions in the anteroseptal leads suggesting previous anteroseptal infarct. I will obtain an echo to evaluate left ventricular function and wall motion. His current medications for hypertension will be continued. Lipid panel will be obtained. Aspirin and Plavix will be continued for possible CAD as well as recent CVA. Depending on the results of the echo and clinical course, he may require further assessment for ischemia with stress nuclear study. At this time, he appears to be ruling out for acute myocardial infarction however. He is noted to be hyponatremic and also has a right renal mass. These issues will be addressed as per his primary team. Celestina Roman M.D. DR: ISAIAH JOB#: [id number] CC:
--- NOTE | 2018-08-09 17:30 | NUR ---
Pt. family brought medication bottles to the hospital per Doctor Vallejo request. the following meds were not found in the home reconsiled med. list . TRAMADOL 50MG 4X/DAY AMOXICILLIN 500MG 3X/DAY (PT DOES NOT KNOW WHAT KIND OF INFECTION HE HAS METOPROLOL ER 50MG 1/DAY ONDANSETRON 4MG prn PROCTOZONE hc 2.5 % RECTAL CREAM 2X/DAY Both Dr. Vallejo and Zac Alejo were called and given list of meds.
--- NOTE | 2018-08-09 18:00 | History and Physical Report ---
DATE OF ADMISSION: 08/08/2018 CHIEF COMPLAINT: Reported chest pain. The patient says he had hiccups. HISTORY OF PRESENT ILLNESS: This is an 88-year-old male, who does not speak British. History was obtained through a seafood processor and talking to the two sons, who are present at the bedside. The patient was recently discharged from [facility]. The family thinks that he was diagnosed stroke, but it is unclear what his symptoms were. Note, that the patient had hyponatremia. His symptoms could have been just from that diagnosis. Specifically, the patient did not have any weakness on any side of his body. The patient was brought into the emergency room, does report the patient has intermittent episodes of pressure-like sensation to his chest and the patient at this point says he has had only hiccups for the past 24 hours prior to admission. PAST MEDICAL HISTORY: Includes history of hypertension and diabetes. MEDICATIONS: Reviewed in the EMR. SOCIAL HISTORY: No history of smoking or alcohol abuse. The patient has a supportive family. ALLERGIES: No known drug allergies. REVIEW OF SYSTEMS: As above. PHYSICAL EXAMINATION: GENERAL: The patient is an elderly male, in no acute distress. VITAL SIGNS: Blood pressure 131/74, pulse 111, temperature 98.4, and respirations 18. HEENT: Somewhat pale conjunctivae. Anicteric sclerae. NECK: Supple. LUNGS: Clear to auscultation. HEART: S1, S2 without murmurs or rubs. ABDOMEN: Soft, nontender. EXTREMITIES: Without cyanosis or edema. LABORATORY DATA: Initial serum sodium was 117. The patient received some 3% saline. The current BMP shows a serum sodium 124, potassium 4.6, chloride 90, CO2 23, BUN 8, and creatinine 0.8. Blood sugar is 130. Magnesium is 1.5. TSH 2.7. CBC shows a WBC of 8800, hematocrit 30, hemoglobin 9.4, and platelets 447,000. Urine sodium was 58. ASSESSMENT: This 88-year-old male, who was admitted with severe hyponatremia, which could have caused his hiccups. It is unclear if the patient has had chest pain ruled out. He received some 3% saline. Serum sodium was improved to 124. 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 I am not sure if he was taking it. He has also some anemia, iron deficiency needs to be ruled out. His hypertension is controlled. PLAN: The patient will be on free water restriction 800 mL per day. I will continue his demeclocycline at 300 mg twice a day. Cardiology consultation was obtained. I will get iron panel for the workup of anemia. He is hypomagnesemic and I will give oral magnesium, I do not want to give IV to avoid extra fluids. Vitamin D level will be checked. Case was discussed with the patient and family in detail. Zac Alejo M.D. DR: POLINA JOB#: [id number] CC:
[2018-08-09] MEDS ORDERED: METOPROLOL SUCC50 MG ORAL (19:02)
[2018-08-09] MEDS ORDERED: VITAMIN E400 UNIT PO (19:02)
[2018-08-09] MEDS ORDERED: CALCIUM500 M2 PO (19:02)
[2018-08-09] MEDS ORDERED: CALCIUM500 M3 PO (19:02)
[2018-08-09] MEDS ORDERED: ZOFRAN4 M3 ORAL (19:02)
[2018-08-09] MEDS ORDERED: SIMVASTATIN10 MG ORAL (19:02)
[2018-08-09] MEDS ORDERED: TRAMADOL HCL50 MG ORAL (19:02)
[2018-08-09] MEDS ORDERED: LIPITOR80 MG ORAL (19:02)
[2018-08-09] MEDS ORDERED: PANTOPRAZOLE SO40 MG ORAL (19:02)
[2018-08-09] MEDS ORDERED: Hydrocortisone 2.5% TOPIC (19:02)
[2018-08-09] MEDS ORDERED: OMEPRAZOLE40 M1 ORAL (19:02)
--- NOTE | 2018-08-09 19:28 | NUR ---
HAND-OFF: Report given to Narda Mays. pt on stable condition, on groundwater monitoring technician no signs of distress cardiac or respiratory.
--- NOTE | 2018-08-09 19:30 | NUR ---
NURSE NOTES: received pt from Davon Kdid. pt AOx4. no acute distress. no change in condition during the day. bed locked and lowest position, bedside rail up x 2. call light and belonging within reach. will continue to monitor for any change in condition.
[2018-08-09 20:00] VITALS: BP 101/59
[2018-08-09] MEDS: Latanoprost 0.005% Opth 2.5ml Soln BOTH EYES SCH (20:29)
--- NOTE | 2018-08-09 23:30 | NUR ---
NURSE NOTES: pt in room 203 bed2, called saying pt fell, went to room, pt from room 203 bed 1,found on floor lying on his left side. pt placed on bed, vital signs taken and wnl according to pt's baseline, pt AOX4 able to answer all my questions, pt states " I did not hit my head only my left arm and leg" no contusions, no bruises, no cuts noted after fall incident. before fall, all fall precautions were in place, yellow socks on, bed lowest position and locked, bedside rail up x2, call light within reach, education provided to pt to use the call light when needing help pt verbalized understanding. urinal at bed side within reach. Reached Zac Linn to make him aware of fall incident. I recommended a CT of head, didn't give new orders other to continue neuro checks to monitor any change in condition.
[2018-08-10] VITALS (7 sets, daily range): BP systolic 106–131; BP diastolic 54–92
--- NOTE | 2018-08-10 00:24 | NUR ---
NURSE NOTES: pt sleeping, no s/s of change in condition. will continue neuro check every 2 hours. will continue to monitor for any change in condition.
--- NOTE | 2018-08-10 04:00 | NUR ---
NURSE NOTES: pt in bed sleeping, no change in condition. will continue to monitor for any change in condition.
--- NOTE | 2018-08-10 05:10 | NUR ---
NURSE NOTES: pt c/o lower abdomen pressure, lower abdomen slightly distended. pt hasn't urinated since 22:00 last night, did bladder scan showing 740 ml urine. tried to reach Dr Alejo, left a message, waiting for 's callback
--- NOTE | 2018-08-10 05:30 | NUR ---
NURSE NOTES: pt c/o intense abd pain. tried to reach Dr Alejo, left a message, waiting for 's callback
[2018-08-10] MEDS: NovoLOG Insulin Flexpen SUBQ SCH ×4 (05:52→21:16)
--- NOTE | 2018-08-10 05:57 | NUR ---
NURSE NOTES: pt c/o intense abd pain. tried to reach Dr Alejo, left a message, waiting for 's callback
--- NOTE | 2018-08-10 05:58 | NUR ---
NURSE NOTES: no insulin given, pt didn't eat dinner yesterday. pt refusing snacks.
--- NOTE | 2018-08-10 06:50 | NUR ---
NURSE NOTES: Dr Alejo gave order for Baltazar catheter insertion for retention, order noted and carried out. pt tolerated the Baltazar cath insertion well. 800 ml urine collected.
--- NOTE | 2018-08-10 06:56 | NUR ---
NURSE NOTES: pt remains stable, no change in condition. neuro checks every 2 hours, pt AAOx4. able to answer my questions in a clear manner. after yung insertion pt states" no more pain in my abdomen". bed locked and lowest position, bed side rail up x2, call light and personal belonging within reach. education provided about using the call light when needing help pt verbalized understanding. will endorse plan of care to incoming nurse.
--- NOTE | 2018-08-10 07:10 | NUR ---
NURSE NOTES: Received patient from LEVI Laboy. Patient is AAO x 4. Patient is on cardiac rn. Patient is breathing even and unlabored. Patient denies pain at this time. Patient has yung catheter that is patent and raining yellow urine. Bed locked, bed alarm on, lowest position, bed side rail up x2, call light and personal belonging within reach. Re-enforced education provided about using the call light when needing help. Pt verbalized understanding. Will continue plan of care.
--- NOTE | 2018-08-10 07:13 | NUR ---
HAND-OFF: Report given to LEVI Baird.
[2018-08-10 08:00] LABS: % IRON SATURATION 14 % (15-50); IRON 34 ug/dL (50-175); TOTAL IRON BINDING CAPACITY 250 ug/dL (250-450)
[2018-08-10 08:24] LABS: ALANINE AMINOTRANSFERASE 23 U/L (12-78); ALBUMIN 3.4 G/DL (3.4-5.0); ALBUMIN/GLOBULIN RATIO 1.2 (1.0-2.7); ALKALINE PHOSPHATASE 96 U/L (46-116); ANION GAP 12 mmol/L (5-15); ASPARTATE AMINO TRANSFERASE 23 U/L (15-37); BILIRUBIN,TOTAL 0.7 MG/DL (0.2-1.0); BLOOD UREA NITROGEN 12 mg/dL (7-18); CALCIUM 9.2 MG/DL (8.5-10.1); CARBON DIOXIDE 23 MMOL/L (21-32); CHLORIDE 89 MMOL/L (98-107); CREATININE 1.1 MG/DL (0.55-1.30); POTASSIUM 4.3 MMOL/L (3.5-5.1); SODIUM 124 MMOL/L (136-145)
[2018-08-10] MEDS: Morphine Sulfate 2mg/ml Inj(IV/IM USE ONLY) IVP PRN ×2 (09:00→18:36)
[2018-08-10] MEDS: Aspirin Baby 81mg ORAL SCH (09:09)
[2018-08-10] MEDS: Magnesium Oxide 400mg tab ORAL SCH ×3 (09:09→17:13)
[2018-08-10] MEDS: Benazepril 10mg tab ORAL SCH (09:09)
[2018-08-10] MEDS: Demeclocycline 150mg tab ORAL SCH ×2 (09:51→20:55)
--- NOTE | 2018-08-10 10:17 | NUR ---
CASE MANAGEMENT: INITIAL REVIEW 08/08/2018 88 YO M BIBA HOME CC: CP PMHx: CVA/TIA. HTN. DM. SI:HYPONATREMIA. CP. T 98.4 HR 76 RR 22 B/P 148/77 SATS 98% ON RA NA 124 CL 89 GLU 143 MG 1.7 IS: PEPCID IV X1 NACL 3% BOLUS X1 LASIX IV X1 PATIENT ADMITTED TO TELE 08/08/2018 @ 1928 DCP: PATIENT TO BE DISCHARGED TO HOME ONCE MEDICALLY CLEARED. PLAN OF CARE: FREE WATER RESTRICTION CARDIO EVAL 08/09/2018 SI:HYPONATREMIA. CP. T 97.2 HR 86 RR 18 B/P 123/62 SATS 95% ON RA NA 124 CL 90 GLU 130 MG 1.5 IS: PEPCID PO BID ASA PO QD NORVASC PO QD LOTENSIN PO QD PLAVIX PO QD DECLOMYCIN PO TID TELE STATUS DCP: PATIENT TO BE DISCHARGED TO HOME ONCE MEDICALLY CLEARED. PLAN OF CARE: FREE WATER RESTRICTION >> 800 mL/DAY WOUND CARE 08/10/2018 SI:HYPONATREMIA. CP. T 98.3 HR 101 RR 20 B/P 131/92 SATS 95% ON RA NA 124 CL 89 GLU 143 IS: PEPCID PO BID ASA PO QD NORVASC PO QD LOTENSIN PO QD PLAVIX PO QD DECLOMYCIN PO TID TELE STATUS DCP: PATIENT TO BE DISCHARGED TO HOME ONCE MEDICALLY CLEARED. PLAN OF CARE: FREE WATER RESTRICTION >> 800 mL/DAY WOUND CARE Addendum: 08/10/18 at 1030 by Amanda Alcala CM INTERQUAL MET
[2018-08-10] MEDS ORDERED: Demeclocycline 150mg tab ORAL SCH (10:30)
--- NOTE | 2018-08-10 10:30 | NUR ---
INSURANCE REVIEWS FAXED TO [facility] [place]: OSIEL P- [phone] [phone].............REVIEW/CLINICAL
--- NOTE | 2018-08-10 13:20 | General Progress Note ---
Assessment/Plan Problem List: (1) Hyponatremia ICD Codes: E87.1 - Hypo-osmolality and hyponatremia SNOMED: 16835183 (2) Chest pain ICD Codes: R07.9 - Chest pain, unspecified SNOMED: 98795325 (3) Renal mass ICD Codes: N28.89 - Other specified disorders of kidney and ureter SNOMED: 194628205 (4) Urinary retention ICD Codes: R33.9 - Retention of urine, unspecified SNOMED: 160974178 (5) Iron deficiency anemia ICD Codes: D50.9 - Iron deficiency anemia, unspecified SNOMED: 32218032 (6) HTN (hypertension) ICD Codes: I10 - Essential (primary) hypertension SNOMED: 28694980 Assessment/Plan: start Flomax keep yung consult free water restriction Follow s Na Discussed with rn Subjective Allergies: Coded Allergies: No Known Allergies (Unverified , 05/28/12) Subjective feels ok was confused had bladder retention yung inserted Objective Last 24 Hour Vital Signs Date Time Temp Pulse Resp B/P (MAP) Pulse Ox O2 Delivery O2 Flow Rate FiO2 08/10/18 09:09 131/92 08/10/18 09:08 101 131/92 08/10/18 09:00 Room Air 08/10/18 08:00 98.3 101 20 131/92 (105) 95 08/10/18 07:38 108 08/10/18 04:00 91 08/10/18 04:00 97.7 96 18 116/68 (84) 95 08/10/18 00:00 97.7 100 18 128/74 (92) 96 08/10/18 00:00 88 08/09/18 21:00 Room Air 08/09/18 20:00 97.6 82 18 101/59 (73) 93 08/09/18 20:00 79 08/09/18 16:00 89 08/09/18 16:00 97.2 86 18 123/62 (82) 95 Intake and Output 08/09/18 08/10/18 19:00 07:00 Intake Total 420 ml Balance 420 ml Intake Oral 420 ml # Voids 1 Laboratory Tests 08/09/18 21:15: Troponin I 0.018 08/10/18 05:52: Troponin I 0.010, Sodium Level 124L, Potassium Level 4.3, Chloride Level 89L, Carbon Dioxide Level 23, Anion Gap 12, Blood Urea Nitrogen 12, Creatinine 1.1, Estimat Glomerular Filtration Rate , Glucose Level 143H, Hemoglobin A1c 7.0H, Calcium Level 9.2, Magnesium Level 1.7L, Iron Level 34L, Total Iron Binding Capacity 250, Percent Iron Saturation 14L, Unsaturated Iron Binding 216, Total Bilirubin 0.7, Aspartate Amino Transf (AST/SGOT) 23, Alanine Aminotransferase ( ALT/SGPT) 23, Alkaline Phosphatase 96, Total Protein 6.2L, Albumin 3.4, Globulin 2.8, Albumin/Globulin Ratio 1.2, Vitamin D 25-Hydroxy [Pending], 25- Hydroxy Vitamin D2 [Pending], 25-Hydroxy Vitamin D3 [Pending] 08/10/18 06:40: Urine Osmolality 234L, Urine Random Sodium 47 Height (Feet): 5 Height (Inches): 3.00 Weight (Pounds): 105 Cardiovascular: normal rate Respiratory/Chest: lungs clear Edema: no edema noted Generalized Zac Alejo MD Aug 10, 2018 13:20
--- NOTE | 2018-08-10 14:20 | Cardiology Progress Note ---
Assessment/Plan Problem List: (1) Urinary retention (2) Renal mass (3) Chest pain (4) Hyponatremia (5) HTN (hypertension) (6) Iron deficiency anemia Status: stable, progressing Status Narrative Mr. Madrid has ruled out for [place]. No further CP. Initial sx atypical for angina. He has hyponatremia -improving Urinary retention req yung, and ? uti He is also noted w/ renal mass on CT Assessment/Plan Would consider elective stress testing to r/o ischemia. Management of poss UTI, hyponatremia and renal mass per primary team. Subjective ROS Limited/Unobtainable: No Subjective Cardiology for Dr. Pozo Pt c/o abd pain. No chest pain Events noted Objective Last 24 Hour Vital Signs Date Time Temp Pulse Resp B/P (MAP) Pulse Ox O2 Delivery O2 Flow Rate FiO2 08/10/18 09:09 131/92 08/10/18 09:08 101 131/92 08/10/18 09:00 Room Air 08/10/18 08:00 98.3 101 20 131/92 (105) 95 08/10/18 07:38 108 08/10/18 04:00 91 08/10/18 04:00 97.7 96 18 116/68 (84) 95 08/10/18 00:00 97.7 100 18 128/74 (92) 96 08/10/18 00:00 88 08/09/18 21:00 Room Air 08/09/18 20:00 97.6 82 18 101/59 (73) 93 08/09/18 20:00 79 08/09/18 16:00 89 08/09/18 16:00 97.2 86 18 123/62 (82) 95 General Appearance: WD/WN, no apparent distress, alert EENT: PERRL/EOMI Neck: supple, no JVD Rhythm: NSR Cardiovascular: normal rate, regular rhythm, no gallop/murmur Respiratory/Chest: lungs clear Abdomen: other - + BS soft, nondistended. Mild suprapubic tenderness Extremities: no swelling Intake and Output 08/09/18 08/10/18 19:00 07:00 Intake Total 420 ml Balance 420 ml Intake Oral 420 ml # Voids 1 Laboratory Tests Test 08/09/18 21:15 08/10/18 05:52 08/10/18 06:40 Troponin I 0.018 ng/mL (0.000-0.056) 0.010 ng/mL (0.000-0.056) Sodium Level 124 MMOL/L (136-145) L Potassium Level 4.3 MMOL/L (3.5-5.1) Chloride Level 89 MMOL/L (98-107) L Carbon Dioxide Level 23 MMOL/L (21-32) Anion Gap 12 mmol/L (5-15) Blood Urea Nitrogen 12 mg/dL (7-18) Creatinine 1.1 MG/DL (0.55-1.30) Estimat Glomerular Filtration Rate mL/min (>60) Glucose Level 143 MG/DL (74-106) H Hemoglobin A1c 7.0 % (4.3-6.0) H Calcium Level 9.2 MG/DL (8.5-10.1) Magnesium Level 1.7 MG/DL (1.8-2.4) L Iron Level 34 ug/dL (50-175) L Total Iron Binding Capacity 250 ug/dL (250-450) Percent Iron Saturation 14 % (15-50) L Unsaturated Iron Binding 216 ug/dL (112-346) Total Bilirubin 0.7 MG/DL (0.2-1.0) Aspartate Amino Transf (AST/SGOT) 23 U/L (15-37) Alanine Aminotransferase (ALT/SGPT) 23 U/L (12-78) Alkaline Phosphatase 96 U/L (46-116) Total Protein 6.2 G/DL (6.4-8.2) L Albumin 3.4 G/DL (3.4-5.0) Globulin 2.8 g/dL Albumin/Globulin Ratio 1.2 (1.0-2.7) Vitamin D 25-Hydroxy Pending 25-Hydroxy Vitamin D2 Pending 25-Hydroxy Vitamin D3 Pending Urine Osmolality 234 mOsm/kg (429-449) L Urine Random Sodium 47 mmol/L (20-110) Microbiology Date/Time Source Procedure Growth Status 08/08/18 18:28 Nasal Nares MRSA Culture - Final NO METHICILLIN RESISTANT STAPH AUREUS... Complete 08/08/18 18:28 Rectum VRE Culture - Final NO VANCOMYCIN RESISTANT ENTEROCOCCUS ... Complete 08/08/18 18:28 Rectum - Final NO CARBAPENEM-RESISTANT ENTEROBACTERI... Complete Celestina Roman MD Aug 10, 2018 14:20
--- NOTE | 2018-08-10 14:39 | Consultation ---
History of Present Illness General Date patient seen: Aug 10, 2018 Reason for Hospitalization: Chest Pain Present Illness HPI This is a very pleasant 88 year old male who is currently admitted for chest pain and work up. Patient was recently at outside facility and discharged but did not improve and came to [facility] for evaluation. Please refer to H&P for details. On admission noted to have opening DTI on sacral area. surgery called to evaluate and assist with care. patient seen, chart reviewed, patient examined. family at bedside. no n/v/f/c. labs improving. Allergies: Coded Allergies: No Known Allergies (Unverified , 05/28/12) Medication History Scheduled Amlodipine Besylate* (Amlodipine Besylate*), 5 MG ORAL DAILY, (Reported) Aspirin* (Aspir-Low*), 81 MG PO DAILY, (Reported) Atorvastatin (Lipitor), 80 MG ORAL DAILY, (Reported) Benazepril Hcl* (Benazepril Hcl*), 5 MG ORAL DAILY, (Reported) Clopidogrel Bisulfate* (Plavix*), 75 MG ORAL DAILY, (Reported) Demeclocycline HCl (Demeclocycline HCl), 300 MG ORAL BID, (Reported) Gabapentin* (Gabapentin*), 300 MG ORAL THREE TIMES A DAY, (Reported) Glipizide/Metformin Hcl (Glipizide-Metformin 5-500 Mg), 1 EACH PO DAILY, ( Reported) Latanoprost* (Xalatan*), Unknown Dose BOTH EYES BEDTIME, (Reported) Metoprolol Succinate* (Metoprolol Succinate*), 50 MG ORAL DAILY, (Reported) Omeprazole (Omeprazole), 40 MG ORAL DAILY, (Reported) Pantoprazole* (Pantoprazole*), Unknown Dose ORAL DAILY, (Reported) Simvastatin (Zocor), 10 MG ORAL BEDTIME, (Reported) Vitamin E* (Vitamin E*), Unknown Dose PO DAILY, (Reported) Scheduled PRN Ondansetron* (Zofran*), 4 MG ORAL Q6H PRN for Nausea & Vomiting, (Reported) Tramadol Hcl* (Ultram*), 50 MG ORAL Q6H PRN for For Pain, (Reported) Miscellaneous Medications Calcium Carbonate (Calcium), Unknown Dose PO, (Reported) Timolol Maleate/Pf (Timoptic 0.5% Ocudose Drop), Unknown Dose OP, (Reported) [Hydrocortisone 2.5% ], 2.5 % TOPIC, (Reported) Discontinued Medications Brimonidine Tartrate/Timolol (Combigan Eye Drops), 5 ML BOTH EYES DAILY, ( Reported) Discontinued Reason: Pt stopped taking med Brinzolamide (Azopt), Unknown Dose OP, (Reported) Discontinued Reason: Pt stopped taking med Cyclobenzaprine Hcl* (Flexeril*), 10 MG PO TID Discontinued Reason: Pt stopped taking med Hydrocodone Bit/Acetaminophen 5-325* ([place] 5-325*), 1 TAB ORAL Q4H PRN for For Pain, (Reported) Discontinued Reason: Pt stopped taking med Lidocaine (Lidoderm), 700 MG TP 3XW PRN, (Reported) Discontinued Reason: Pt stopped taking med Metformin Hcl* (Glucophage*), 750 MG ORAL DAILY, (Reported) Discontinued Reason: Pt stopped taking med Omeprazole (Prilosec), 40 MG ORAL BID, (Reported) Discontinued Reason: Prescription changed Simvastatin (Zocor), 10 MG ORAL DAILY, (Reported) Discontinued Reason: Prescription changed Travoprost (Benzalkonium) (Travatan 0.004% Eye Drop), 2.5 ML RIGHT EYE QHS, ( Reported) Discontinued Reason: Pt stopped taking med Patient History History Provided By: Patient, Family Member, Medical Record, PMD Healthcare decision maker Resuscitation status Full Code Advanced Directive on File No Past Medical/Surgical History Past Medical/Surgical History: (1) Decubitus skin ulcer (2) Hyponatremia (3) Chest pain (4) Renal mass (5) Urinary retention (6) Iron deficiency anemia (7) HTN (hypertension) Review of Systems Review of Symptoms General ROS: no weight loss or fever Psychological ROS: no depression or mood changes, no memory loss Ophthalmic ROS: no visual changes or eye irritation ENT ROS: no nasal congestion, hearing loss, dizziness Allergy and Immunology ROS: no allergic symptoms or urticaria Hematological and Lymphatic ROS: no swollen glands, unusual bleeding or bruising Endocrine ROS: no polyuria, polydipsia, weight changes, temperature intolerance Respiratory ROS: no cough, shortness of breath, or wheezing Cardiovascular ROS: no chest pain or dyspnea on exertion Gastrointestinal ROS: denies abdominal pain, no bright red blood in stool. Musculoskeletal ROS: no myalgias or arthralgias Neurological ROS: no TIA or stroke symptoms Dermatological ROS: no new or changing skin lesions, rashes or pruritis Physical Exam Physical Exam General appearance: alert, cooperative, no distress, appears stated age Head: Normocephalic, without obvious abnormality, atraumatic Eyes: conjunctivae/corneas clear. PERRL, EOM's intact. Fundi benign Throat: Lips, mucosa, and tongue normal. Teeth and gums normal Neck: supple, symmetrical, trachea midline, no adenopathy, thyroid: not enlarged, symmetric, no tenderness/mass/nodules, no carotid bruit and no JVD Lungs: clear to auscultation bilaterally Heart: regular rate and rhythm, S1, S2 normal, no murmur, click, rub or gallop Abdomen: soft, non-tender. Bowel sounds normal. No masses, no organomegaly Extremities: extremities normal, atraumatic, no cyanosis or edema Pulses: 2+ and symmetric Skin: Skin color, texture, turgor normal. No rashes or lesions Neurologic: Grossly normal Last 24 Hour Vital Signs Date Time Temp Pulse Resp B/P (MAP) Pulse Ox O2 Delivery O2 Flow Rate FiO2 08/10/18 09:09 131/92 08/10/18 09:08 101 131/92 08/10/18 09:00 Room Air 08/10/18 08:00 98.3 101 20 131/92 (105) 95 08/10/18 07:38 108 08/10/18 04:00 91 08/10/18 04:00 97.7 96 18 116/68 (84) 95 08/10/18 00:00 97.7 100 18 128/74 (92) 96 08/10/18 00:00 88 08/09/18 21:00 Room Air 08/09/18 20:00 97.6 82 18 101/59 (73) 93 08/09/18 20:00 79 08/09/18 16:00 89 08/09/18 16:00 97.2 86 18 123/62 (82) 95 Intake and Output 08/09/18 08/10/18 19:00 07:00 Intake Total 420 ml Balance 420 ml Intake Oral 420 ml # Voids 1 Laboratory Tests Test 08/09/18 21:15 08/10/18 05:52 08/10/18 06:40 Troponin I 0.018 ng/mL (0.000-0.056) 0.010 ng/mL (0.000-0.056) Sodium Level 124 MMOL/L (136-145) L Potassium Level 4.3 MMOL/L (3.5-5.1) Chloride Level 89 MMOL/L (98-107) L Carbon Dioxide Level 23 MMOL/L (21-32) Anion Gap 12 mmol/L (5-15) Blood Urea Nitrogen 12 mg/dL (7-18) Creatinine 1.1 MG/DL (0.55-1.30) Estimat Glomerular Filtration Rate mL/min (>60) Glucose Level 143 MG/DL (74-106) H Hemoglobin A1c 7.0 % (4.3-6.0) H Calcium Level 9.2 MG/DL (8.5-10.1) Magnesium Level 1.7 MG/DL (1.8-2.4) L Iron Level 34 ug/dL (50-175) L Total Iron Binding Capacity 250 ug/dL (250-450) Percent Iron Saturation 14 % (15-50) L Unsaturated Iron Binding 216 ug/dL (112-346) Total Bilirubin 0.7 MG/DL (0.2-1.0) Aspartate Amino Transf (AST/SGOT) 23 U/L (15-37) Alanine Aminotransferase (ALT/SGPT) 23 U/L (12-78) Alkaline Phosphatase 96 U/L (46-116) Total Protein 6.2 G/DL (6.4-8.2) L Albumin 3.4 G/DL (3.4-5.0) Globulin 2.8 g/dL Albumin/Globulin Ratio 1.2 (1.0-2.7) Vitamin D 25-Hydroxy Pending 25-Hydroxy Vitamin D2 Pending 25-Hydroxy Vitamin D3 Pending Urine Osmolality 234 mOsm/kg (429-449) L Urine Random Sodium 47 mmol/L (20-110) Height (Feet): 5 Height (Inches): 3.00 Weight (Pounds): 105 Medications Current Medications Medications (Trade) Dose Ordered Sig/Deb Route PRN Reason Start Time Stop Time Status Last Admin Dose Admin Acetaminophen (Tylenol) 650 mg Q4H PRN ORAL Mild Pain (Pain Scale 1-3) 08/08/18 21:15 09/07/18 21:14 Amlodipine Besylate (Norvasc) 5 mg DAILY ORAL 08/09/18 09:00 7/30/19 08:59 08/10/18 09:08 Aspirin (ASA) 81 mg DAILY ORAL 08/09/18 09:00 09/08/18 08:59 08/10/18 09:09 Benazepril HCl (Lotensin) 5 mg DAILY ORAL 08/09/18 09:00 09/08/18 08:59 08/10/18 09:09 Clopidogrel Bisulfate (Plavix) 75 mg DAILY ORAL 08/09/18 09:00 09/08/18 08:59 08/10/18 09:09 Demeclocycline HCl (Declomycin) 600 mg Q12HR ORAL 08/10/18 21:00 08/15/18 21:59 Dextrose (Dextrose 50%) 25 ml Q30M PRN IV Hypoglycemia 08/08/18 21:30 09/07/18 21:29 Dextrose (Dextrose 50%) 50 ml Q30M PRN IV Hypoglycemia 08/08/18 21:30 09/07/18 21:29 Famotidine (Pepcid) 20 mg BID ORAL 08/08/18 21:15 09/07/18 21:14 08/10/18 09:51 Gabapentin (Neurontin) 300 mg THREE TIMES A DAY ORAL 08/08/18 21:30 09/07/18 21:29 08/10/18 13:20 Insulin Aspart (NovoLOG) BEFORE MEALS AND HS SUBQ 08/09/18 06:30 09/08/18 06:29 08/10/18 12:03 Iopamidol (Isovue-370 150ml) 150 ml NOW PRN INJ Radiology Procedure 08/08/18 17:30 08/10/18 17:21 Iron Sucrose 100 mg/Sodium Chloride 60 ml @ 240 mls/hr BEDTIME IVPB 08/10/18 21:00 08/14/18 21:14 Latanoprost (Xalatan) 1 drop BEDTIME BOTH EYES 08/09/18 21:00 09/08/18 20:59 08/09/18 20:29 Magnesium Hydroxide (Mom) 30 ml HSPRN PRN ORAL Constipation 08/08/18 21:15 09/07/18 21:14 Magnesium Oxide (Mag-Ox 400mg) 400 mg THREE TIMES A DAY ORAL 08/09/18 13:00 09/08/18 12:59 08/10/18 13:20 Morphine Sulfate (Morphine Sulfate) 2 mg Q3H PRN IVP Moderate Pain (Pain Scale 4-6) 08/08/18 21:15 08/15/18 21:14 Morphine Sulfate (Morphine Sulfate) 4 mg Q3H PRN IVP Severe Pain (Pain Scale 7-10) 08/08/18 21:15 08/15/18 21:14 08/09/18 08:51 Zolpidem Tartrate (Ambien) 5 mg DAILYPRN PRN ORAL Insomnia 08/08/18 21:15 08/15/18 21:14 Assessment/Plan Problem List: (1) Hyponatremia ICD Codes: E87.1 - Hypo-osmolality and hyponatremia SNOMED: 69552350 (2) Chest pain ICD Codes: R07.9 - Chest pain, unspecified SNOMED: 10998160 (3) Renal mass ICD Codes: N28.89 - Other specified disorders of kidney and ureter SNOMED: 256764319 (4) Urinary retention ICD Codes: R33.9 - Retention of urine, unspecified SNOMED: 834076349 (5) Iron deficiency anemia ICD Codes: D50.9 - Iron deficiency anemia, unspecified SNOMED: 43095880 (6) HTN (hypertension) ICD Codes: I10 - Essential (primary) hypertension SNOMED: 09720314 (7) Decubitus skin ulcer Assessment & Plan: Patient presented with open DTI of sacral region. area 4cm x 3cm with 1cm opening just caudal to the coccyx. tender on palpation. no drainage. no signs of active infection. periwound with erythema. patient with non blanching erythema to heels and right hip. Patient not eating well and malnourished He is otherwise comfortable now He is able to move independently in bed I spoke with patient and family in regards to findings. He is at high risk for developing worsening decubitus and in multiple areas. Will assist with care and advise family of plan to ensure healing and not worsening apply skin protectant and therahoney to sacral wound daily with foam dressing apply foam dressings to heels, change q7 days apply foam dressings to bilateral hips, change q3 days off load pressure turn q2h off load heels with pillows thank you will follow with recs ICD Codes: L89.90 - Pressure ulcer of unspecified site, unspecified stage SNOMED: 358232245 Raúl Cardenas Aug 10, 2018 14:39
--- NOTE | 2018-08-10 15:03 | NUR ---
NURSE NOTES:WOUND CARE NOTES:Pt presented on admission with multiple pressure injuries.Open DTPI noted to sacrum .Base of wound purple over sacrum with maroon discoloration extending into R and L buttocks(L)7 cm x (W)6.5cm.Within base of wound R buttocks, a small open area with slough noted(L)0.5cm x (W)0.6cm. Pt verbalized sacral area is painful when minimally palpated. Non-blanchable erythema with fluctuance noted to L heel. Pt verbalized heel is tender when minimally palpated. Non-blanchable erythema with fluctuance noted to R heel . Pt complained of tenderness when minimally palpated. Category 3 skin tear with 100% flap loss noted to lateral L tibia. No exudate noted. Non-blanchable erythema without induration or fluctuance noted to R elbow. Tx.Plan: Cleanse sacral wound with Saline. Apply Therahoney to slough. Apply Moisture Barrier periwound. Cover with Optifoam drsg. Change every 3 days and prn. Apply Cavilon Skin Barrier to both heels. Cover each heel with Optifoam drsg. Change every 7 days and prn. Apply Cavilon Skin barrier to R and L elbows. Cover each elbow with Optifoam drsg. Change every 7 days and prn. Cleanse skin tear lateral L tibia with Saline. Cover with Optifoam drsg. Change every 7 days and prn. APM/TIFFANY mattress overlay. Off-load heels with pillow.
[2018-08-10 15:41] LABS: APPEARANCE,URINE CLEAR; BILIRUBIN, URINE NEGATIVE (NEGATIVE); COLOR,URINE PALE YELLOW; GLUCOSE, URINE (UA) NEGATIVE (NEGATIVE); KETONES,URINE 1+ (NEGATIVE); LEUKOCYTE ESTERASE ,URINE NEGATIVE (NEGATIVE); NITRITE,URINE NEGATIVE (NEGATIVE); PH,URINE 7 (4.5-8.0); PROTEIN,URINE NEGATIVE (NEGATIVE); UROBILINOGEN,URINE NORMAL MG/DL (0.0-1.0)
[2018-08-10] MEDS: Morphine Sulfate 4mg/ml Inj (IV USE ONLY) IVP PRN ×2 (18:21→23:46)
--- NOTE | 2018-08-10 19:20 | NUR ---
HAND-OFF: Report given to LEVI Ellis. Patient is now on p200 mattress. Patient yung is intact. Endorse to follow up with eye drops laxmi by family with primary doctor.
--- NOTE | 2018-08-10 19:21 | NUR ---
NURSE NOTES: Got report from Oli SIMS. Pt in stable condition. Denies any pain. No s/s of distress or discomfort noted. Pt resting in bed comfortably. Bed in low and locked position, call light within reach, bedside table within reach. Continue to monitor.
--- NOTE | 2018-08-10 20:00 | NUR ---
NURSE NOTES: Pt granddaughter was in the room and said that pt takes three other eye drops daily, which are Timolol, Azopt, and Combigan. The dosage for all three is one drop per eye twice a day, in the morning and night. Paged Dr. Bernardo Alejo about these medications and he said to continue all.
[2018-08-10] MEDS: Latanoprost 0.005% Opth 2.5ml Soln BOTH EYES SCH (20:53)
[2018-08-10] MEDS: Iron Sucrose 100 MG in NS 55 ML IVPB SCH (20:53)
--- NOTE | 2018-08-10 22:30 | Consultation ---
DATE OF CONSULTATION: 08/10/2018 CONSULTING PHYSICIAN: Roger Foss M.D. REFERRING PHYSICIAN: Zac Alejo M.D. REASON FOR CONSULTATION: Renal mass on the right side and urinary retention. HISTORY OF PRESENT ILLNESS: This is an 88-year-old [place] male, who was admitted to the hospital with problem with urination and also electrolyte imbalance of hyponatremia in nature. The history was obtained through son and family, indirectly from the patient. Apparently he had a questionable stroke at [facility] a few weeks ago and was discharged. During this admission, the patient was not found to have any neurological deficits or weakness. However, he was showing persistent hyponatremia and also on workup, he was found to have a calcified exophytic 5 cm lobulated renal mass. The patient also has problem with urgency and frequency and was found to have a urinary retention and at the present time he has a Baltazar catheter. PAST HISTORY: The patient has surgery on the right hand and also has a history of blood pressure, elevated cholesterol, arthritis, and diabetes. The chart was reviewed. His hemoglobin A1c over 7. He has hyponatremia, which is being treated. PHYSICAL EXAMINATION: ABDOMEN: Negative. CVA negative. RECTAL: A 45 g smooth prostate. IMPRESSION: 1. Urinary retention secondary to presumed mild stroke or secondary to diabetes. 2. Exophytic calcified 5 cm mass, right kidney, which appeared to be not an aggressive . DISCUSSION: His urinary retention most probably is secondary to either presumed diabetes or CVA. RECOMMENDATION: 1. Starting Flomax 0.4 mg after dinner. 2. After 2 days, giving him a trial to void. His renal mass is calcified, exophytic, and does not appear to be an aggressive tumor and for his age and condition, it is almost irrelevant. Thank you very much for giving me opportunity to see the patient. Roger Foss M.D. DR: BESSY JOB#: [id number] CC: Roger Foss M.D.; Fax#: [phone]
[2018-08-11 04:10] VITALS: BP 107/56
[2018-08-11] MEDS: NovoLOG Insulin Flexpen SUBQ SCH ×4 (06:02→21:27)
--- NOTE | 2018-08-11 07:00 | NUR ---
HAND-OFF: Report given to Cris SIMS. Endorsed plan of care.
[2018-08-11 07:17] LABS: ANION GAP 11 mmol/L (5-15); BLOOD UREA NITROGEN 14 mg/dL (7-18); CALCIUM 9.2 MG/DL (8.5-10.1); CARBON DIOXIDE 22 MMOL/L (21-32); CHLORIDE 98 MMOL/L (98-107); CREATININE 1.1 MG/DL (0.55-1.30); SODIUM 131 MMOL/L (136-145)
--- NOTE | 2018-08-11 07:52 | NUR ---
NURSE NOTES: Received patient from LEVI Blancas. Patient AAOx4. eating his breakfast. Bed at lowest position, sied railX2 up. Call light within reach. will follow plan of care.
[2018-08-11 08:00] VITALS: BP 123/63
[2018-08-11] MEDS: Magnesium Oxide 400mg tab ORAL SCH ×3 (08:32→17:15)
[2018-08-11] MEDS: Benazepril 10mg tab ORAL SCH (08:34)
[2018-08-11] MEDS: Aspirin Baby 81mg ORAL SCH (08:34)
[2018-08-11] MEDS: Demeclocycline 150mg tab ORAL SCH ×2 (08:35→21:00)
[2018-08-11] MEDS: Timolol 0.5% Op Soln 2.5ml BOTH EYES SCH ×2 (08:35→18:20)
--- NOTE | 2018-08-11 10:52 | NUR ---
CASE MANAGEMENT:REVIEW 08/11/18 SI: HYPONATREMIA.CHEST PAIN RENAL MASS. URINARY RETENTION 97.3 86 18 123/63 97% ON RA NA-131 IS: DECLOMYCIN PO Q12 IV VENOFER QHS MAG OXIDE PO TID ASA PO QD NORVASC PO QD LOTENSIN PO QD PLAVIX PO QD NEURONTIN PO TID : TELEMETRY DCP: FROM HOME PLAN: START FLOMAX FLOMAX 0.4MG
--- NOTE | 2018-08-11 11:15 | CDS Physician Query ---
Clarification is required for compliance, coding accuracy, and to reflect severity of illness for this patient Dear Dr. Zac Alejo Date: 08/11/2018 Digital Intern/CDS Name: Tere Sandoval Clinical documentation states: 88-year-old male, who was admitted with severe hyponatremia RD note: Increased kcal and pro needs r/t underweight status and wound healing as evidenced by pt is 85% of [place] Body weight w/ stage 2 sacral wound. BMI: 18.6 Please select the most appropriate option: [] Protein/Calorie Malnutrition [] Mild [x] Moderate [] Severe [] Hypoalbuminemia [] Underweight [] Other [] Unable to determine [] Not Applicable Present on Admission: [x] Yes [] No [] Clinically Undetermined Physician signature Date Please also document in your Progress Notes and/or Discharge Summary and indicate if the condition was present on admission. SUSY
--- NOTE | 2018-08-11 11:44 | NUR ---
NURSE NOTES: Called Dr. Foss's office at [phone] regarding his report recommending Flomax 0.4mg. He stated that the medication should have been started last night. I informed him that the order was stated on the report but was never actually put in. Per Dr. Foss, give pt one dose of flomax now and the other after dinner for the rest of the days. Orders noted and carried out.
--- NOTE | 2018-08-11 11:52 | NUR ---
INSURANCE REVIEWS FAXED TO [facility] [place]: OSIEL P- [phone] [phone].............REVIEW/CLINICAL
[2018-08-11 12:00] VITALS: BP 108/54
[2018-08-11] MEDS ORDERED: Tamsulosin 0.4mg cap ORAL SCH (12:00)
--- NOTE | 2018-08-11 12:17 | Surgery Progress Note ---
Surgery Progress Note Subjective Additional Comments no acute events stable comfortable labs noted Objective Last 24 Hour Vital Signs Date Time Temp Pulse Resp B/P (MAP) Pulse Ox O2 Delivery O2 Flow Rate FiO2 08/11/18 09:00 Room Air 08/11/18 08:34 123/63 08/11/18 08:34 86 123/63 08/11/18 08:00 97.3 86 18 123/63 (83) 97 08/11/18 08:00 85 08/11/18 04:10 98.1 60 19 107/56 (73) 95 08/11/18 04:00 55 08/11/18 00:16 98.2 08/11/18 00:00 69 08/10/18 23:57 98.2 69 18 106/54 (71) 97 08/10/18 21:00 Room Air 08/10/18 20:00 98.5 100 18 106/61 (76) 98 08/10/18 20:00 92 08/10/18 16:04 98.7 94 19 121/61 (81) 97 08/10/18 15:41 93 I&O Intake and Output 08/10/18 08/11/18 19:00 07:00 Intake Total 240 ml 240 ml Output Total 650 ml 700 ml Balance -410 ml -460 ml Intake Oral 240 ml 240 ml Output Urine Total 650 ml 700 ml Dressing: dry Wound: clean Cardiovascular: RSR Respiratory: clear Abdomen: soft, present bowel sounds Extremities: no tenderness, no cyanosis Laboratory Tests Test 08/10/18 15:10 08/11/18 05:36 Urine Color Pale yellow Urine Appearance Clear Urine pH 7 (4.5-8.0) Urine Specific [place] 1.005 (1.005-1.035) Urine Protein Negative (NEGATIVE) Urine Glucose (UA) Negative (NEGATIVE) Urine Ketones 1+ (NEGATIVE) H Urine Blood 4+ (NEGATIVE) H Urine Nitrite Negative (NEGATIVE) Urine Bilirubin Negative (NEGATIVE) Urine Urobilinogen Normal MG/DL (0.0-1.0) Urine Leukocyte Esterase Negative (NEGATIVE) Urine RBC 5-10 /HPF (0 - 0) H Urine WBC 0-2 /HPF (0 - 0) Urine Squamous Epithelial Cells None /LPF (NONE/OCC) Urine Bacteria Few /HPF (NONE) Sodium Level 131 MMOL/L (136-145) L Potassium Level 4.0 MMOL/L (3.5-5.1) Chloride Level 98 MMOL/L (98-107) Carbon Dioxide Level 22 MMOL/L (21-32) Anion Gap 11 mmol/L (5-15) Blood Urea Nitrogen 14 mg/dL (7-18) Creatinine 1.1 MG/DL (0.55-1.30) Estimat Glomerular Filtration Rate mL/min (>60) Glucose Level 94 MG/DL (74-106) Calcium Level 9.2 MG/DL (8.5-10.1) Plan Problems: (1) Hyponatremia (2) Chest pain (3) Renal mass (4) Urinary retention (5) Iron deficiency anemia (6) HTN (hypertension) (7) Decubitus skin ulcer Assessment & Plan: Patient presented with open DTI of sacral region. area 4cm x 3cm with 1cm opening just caudal to the coccyx. tender on palpation. no drainage. no signs of active infection. periwound with erythema. patient with non blanching erythema to heels and right hip. Patient not eating well and malnourished He is otherwise comfortable now He is able to move independently in bed I spoke with patient and family in regards to findings. He is at high risk for developing worsening decubitus and in multiple areas. Will assist with care and advise family of plan to ensure healing and not worsening Pt presented on admission with multiple pressure injuries.Open DTPI noted to sacrum .Base of wound purple over sacrum with maroon discoloration extending into R and L buttocks(L)7 cm x (W)6.5cm.Within base of wound R buttocks, a small open area with slough noted(L)0.5cm x (W)0.6cm. Pt verbalized sacral area is painful when minimally palpated. Non-blanchable erythema with fluctuance noted to L heel. Pt verbalized heel is tender when minimally palpated. Non-blanchable erythema with fluctuance noted to R heel . Pt complained of tenderness when minimally palpated. Category 3 skin tear with 100% flap loss noted to lateral L tibia. No exudate noted. Non-blanchable erythema without induration or fluctuance noted to R elbow. Tx.Plan: Cleanse sacral wound with Saline. Apply Therahoney to slough. Apply Moisture Barrier periwound. Cover with Optifoam drsg. Change every 3 days and prn. Apply Cavilon Skin Barrier to both heels. Cover each heel with Optifoam drsg. Change every 7 days and prn. Apply Cavilon Skin barrier to R and L elbows. Cover each elbow with Optifoam drsg. Change every 7 days and prn. Cleanse skin tear lateral L tibia with Saline. Cover with Optifoam drsg. Change every 7 days and prn. APM/TIFFANY mattress overlay. Off-load heels with pillow. off load pressure turn q2h thank you will follow with Raúl Cruz Aug 11, 2018 12:17
--- NOTE | 2018-08-11 15:13 | Cardiology Report ---
APPROVED REPORT EXAM: Two-dimensional and M-mode echocardiogram with Doppler and color Doppler. INDICATION Chest Pain M-Mode DIMENSIONS IVSd1.2 (0.7-1.1cm)Left Atrium (MM)3.5 (1.6-4.0cm) LVDd3.4 (3.5-5.6cm)Aortic Root2.7 (2.0-3.7cm) PWd0.9 (0.7-1.1cm)Aortic Cusp Exc.1.5 (1.5-2.0cm) LVDs2.2 (2.5-4.0cm) PWs1.2 cm Normal left ventricular chamber size, systolic function and wall motion. Left ventricular ejection fraction estimated to be 60 %. Mild left ventricular hypertrophy by 2-D. No evidence of pericardial effusion. All other cardiac chamber sizes are within normal limits. Focal aortic valve sclerosis with adequate cusp excursion. Thickened mitral valve leaflets with normal excursion. Mitral annulus and aortic root calcification. Pulmonic valve not well visualized. Normal tricuspid valve structure. IVC at normal size with physiologic collapse. A color flow and spectral Doppler study was performed and revealed: Moderate aortic regurgitation. Trace mitral regurgitation. Mitral diastolic velocities suggest reduced left ventricular relaxation c/w mild LV diastolic dysfunction (Grade I). Trace tricuspid regurgitation. Tricuspid systolic velocities suggests peak right ventricular systolic pressure of 9 mmHg
[2018-08-11 16:00] VITALS: BP 131/61
--- NOTE | 2018-08-11 19:03 | Cardiology Progress Note ---
Assessment/Plan Problem List: (1) Urinary retention (2) Renal mass (3) Chest pain (4) Hyponatremia (5) HTN (hypertension) (6) Iron deficiency anemia Status Narrative Mr. Madrid has ruled out for UT. No further CP. Initial sx atypical for angina. He has hyponatremia, which has improved, on demeclocycline Urinary retention req yung, and ? uti He is also noted w/ renal mass on CT, but not felt to need intervention, per surgery Assessment/Plan Would consider elective stress testing to r/o ischemia, though CP was atypical for angina Continue asa, plavix for recent CVA. BP control w/ benazepril and amlodipine. Continue treatment for hyponatremia per Dr. Alejo. u/a, cx negative Subjective ROS Limited/Unobtainable: No Subjective Cardiology for Dr. Pozo Mr Madrid has no c/o chest pain, dyspnea Objective Last 24 Hour Vital Signs Date Time Temp Pulse Resp B/P (MAP) Pulse Ox O2 Delivery O2 Flow Rate FiO2 08/11/18 16:00 98.4 75 20 131/61 (84) 94 08/11/18 16:00 77 08/11/18 12:00 97.2 85 18 108/54 (72) 98 08/11/18 12:00 94 08/11/18 09:00 Room Air 08/11/18 08:34 123/63 08/11/18 08:34 86 123/63 08/11/18 08:00 97.3 86 18 123/63 (83) 97 08/11/18 08:00 85 08/11/18 04:10 98.1 60 19 107/56 (73) 95 08/11/18 04:00 55 08/11/18 00:16 98.2 08/11/18 00:00 69 08/10/18 23:57 98.2 69 18 106/54 (71) 97 08/10/18 21:00 Room Air 08/10/18 20:00 98.5 100 18 106/61 (76) 98 08/10/18 20:00 92 General Appearance: WD/WN, thin EENT: PERRL/EOMI Neck: supple, no JVD Rhythm: NSR Cardiovascular: normal rate, regular rhythm, no gallop/murmur Respiratory/Chest: lungs clear Abdomen: normal bowel sounds, non tender, soft Extremities: no swelling Intake and Output 08/10/18 08/11/18 19:00 07:00 Intake Total 240 ml 240 ml Output Total 650 ml 700 ml Balance -410 ml -460 ml Intake Oral 240 ml 240 ml Output Urine Total 650 ml 700 ml Laboratory Tests Test 08/11/18 05:36 Sodium Level 131 MMOL/L (136-145) L Potassium Level 4.0 MMOL/L (3.5-5.1) Chloride Level 98 MMOL/L (98-107) Carbon Dioxide Level 22 MMOL/L (21-32) Anion Gap 11 mmol/L (5-15) Blood Urea Nitrogen 14 mg/dL (7-18) Creatinine 1.1 MG/DL (0.55-1.30) Estimat Glomerular Filtration Rate mL/min (>60) Glucose Level 94 MG/DL (74-106) Calcium Level 9.2 MG/DL (8.5-10.1) Celestina Roman MD Aug 11, 2018 19:03
--- NOTE | 2018-08-11 19:34 | NUR ---
HAND-OFF: Report given to LEVI Simpson. Plan of care endorsed
--- NOTE | 2018-08-11 19:40 | NUR ---
NURSE NOTES: Received report from LEVI Yates. Patient in bed awake showing no signs of acute distress. Respiration even and non labored on room air. IV line patent and intact. Baltazar draining, intact and patent. Side rails up x2. Bed in lowest position. Wheel locked and alarm on. Call light within reach. All need attended and met. Will continue plan of care
[2018-08-11 20:00] VITALS: BP 102/62
[2018-08-11] MEDS: Latanoprost 0.005% Opth 2.5ml Soln BOTH EYES SCH (21:00)
[2018-08-11] MEDS: Tamsulosin 0.4mg cap ORAL SCH (21:00)
--- NOTE | 2018-08-11 21:08 | NUR ---
NURSE NOTES: Called and left a message to Dr. Zac Alejo, Pt. is very agitated, confused and combative. Pt. is attempting to remove his yung and attempting to get out of bed. Awaiting call back.
[2018-08-11] MEDS: Iron Sucrose 100 MG in NS 55 ML IVPB SCH (21:26)
[2018-08-11] MEDS: Morphine Sulfate 2mg/ml Inj(IV/IM USE ONLY) IVP PRN (21:28)
--- NOTE | 2018-08-11 22:09 | NUR ---
NURSE NOTES: Received call from Dr. Zac Alejo to call Dr. Mullen for Psych consult. Noted and carried out.
--- NOTE | 2018-08-11 22:12 | General Progress Note ---
Assessment/Plan Problem List: (1) Hyponatremia ICD Codes: E87.1 - Hypo-osmolality and hyponatremia SNOMED: 30400548 (2) Chest pain ICD Codes: R07.9 - Chest pain, unspecified SNOMED: 20824176 (3) Renal mass ICD Codes: N28.89 - Other specified disorders of kidney and ureter SNOMED: 548477083 (4) Urinary retention ICD Codes: R33.9 - Retention of urine, unspecified SNOMED: 964152256 (5) Iron deficiency anemia ICD Codes: D50.9 - Iron deficiency anemia, unspecified SNOMED: 60651257 (6) HTN (hypertension) ICD Codes: I10 - Essential (primary) hypertension SNOMED: 59807051 Status: stable, progressing Assessment/Plan: cont Flomax voiding trial consult free water restriction Follow s Na Discussed with RN Subjective Allergies: Coded Allergies: No Known Allergies (Unverified , 05/28/12) Subjective gets confused at night Objective Last 24 Hour Vital Signs Date Time Temp Pulse Resp B/P (MAP) Pulse Ox O2 Delivery O2 Flow Rate FiO2 08/11/18 20:00 98.2 94 20 102/62 (75) 94 08/11/18 16:00 98.4 75 20 131/61 (84) 94 08/11/18 16:00 77 08/11/18 12:00 97.2 85 18 108/54 (72) 98 08/11/18 12:00 94 08/11/18 09:00 Room Air 08/11/18 08:34 123/63 08/11/18 08:34 86 123/63 08/11/18 08:00 97.3 86 18 123/63 (83) 97 08/11/18 08:00 85 08/11/18 04:10 98.1 60 19 107/56 (73) 95 08/11/18 04:00 55 08/11/18 00:16 98.2 08/11/18 00:00 69 08/10/18 23:57 98.2 69 18 106/54 (71) 97 Intake and Output 08/10/18 08/11/18 19:00 07:00 Intake Total 240 ml 240 ml Output Total 650 ml 700 ml Balance -410 ml -460 ml Intake Oral 240 ml 240 ml Output Urine Total 650 ml 700 ml Laboratory Tests 08/11/18 05:36: Sodium Level 131L, Potassium Level 4.0, Chloride Level 98, Carbon Dioxide Level 22, Anion Gap 11, Blood Urea Nitrogen 14, Creatinine 1.1, Estimat Glomerular Filtration Rate , Glucose Level 94, Calcium Level 9.2 Height (Feet): 5 Height (Inches): 3.00 Weight (Pounds): 105 Cardiovascular: normal rate Respiratory/Chest: lungs clear Edema: no edema noted Generalized Zac Alejo MD Aug 11, 2018 22:12
[2018-08-11] MEDS ORDERED: DiphenhydrAMINE 50mg/ml Inj IM ONE (22:15)
[2018-08-11] MEDS ORDERED: Haloperidol 5mg/ml Inj IM ONE ×2 (22:15→23:15)
[2018-08-11] MEDS ORDERED: OLANZapine 2.5mg tab ORAL PRN (22:15)
--- NOTE | 2018-08-11 22:24 | NUR ---
NURSE NOTES: Called and spoke with Dr. Mullen, received new orders. Noted and carried out.
[2018-08-12] VITALS: BP 111/67
[2018-08-12 04:00] VITALS: BP 128/60
[2018-08-12] MEDS: NovoLOG Insulin Flexpen SUBQ SCH ×4 (05:54→23:19)
--- NOTE | 2018-08-12 07:24 | NUR ---
HAND-OFF: Report given to LEVI Yates.
--- NOTE | 2018-08-12 07:40 | NUR ---
NURSE NOTES: Received patient from Calvin Mays. Patient is awake and alert, resting comfortably in bed. Denies pain or discomfort. B/L wrist restraint in place.will continue to monitor.
[2018-08-12 07:41] LABS: ANION GAP 15 mmol/L (5-15); BLOOD UREA NITROGEN 14 mg/dL (7-18); CALCIUM 9.6 MG/DL (8.5-10.1); CARBON DIOXIDE 21 MMOL/L (21-32); CHLORIDE 95 MMOL/L (98-107); POTASSIUM 5.3 MMOL/L (3.5-5.1); SODIUM 130 MMOL/L (136-145)
--- NOTE | 2018-08-12 07:44 | NUR ---
NURSE NOTES: Bed to lowest position, side rails X2 up. call munoz within reach.
[2018-08-12 08:00] VITALS: BP 128/82
[2018-08-12] MEDS: Magnesium Oxide 400mg tab ORAL SCH ×4 (08:41→18:00)
[2018-08-12] MEDS: OLANZapine 2.5mg tab ORAL SCH ×3 (08:41→18:00)
[2018-08-12] MEDS: Aspirin Baby 81mg ORAL SCH (08:42)
[2018-08-12] MEDS: Benazepril 10mg tab ORAL SCH (08:42)
[2018-08-12] MEDS: Demeclocycline 150mg tab ORAL SCH ×2 (08:43→22:29)
[2018-08-12] MEDS: Timolol 0.5% Op Soln 2.5ml BOTH EYES SCH ×2 (08:43→18:00)
--- NOTE | 2018-08-12 09:52 | NUR ---
CASE MANAGEMENT:REVIEW 08/12/18 SI: HYPONATREMIA.CHEST PAIN RENAL MASS. URINARY RETENTION 98.3 137 15 128/82 96% ON RA NA-130 K-5.3 IS: DECLOMYCIN PO Q12 ZYPREXA PO BID FLOMAX PO QHS IV VENOFER QHS MAG OXIDE PO TID ASA PO QD NORVASC PO QD LOTENSIN PO QD PLAVIX PO QD NEURONTIN PO TID : TELEMETRY DCP: FROM HOME PLAN: FLOMAX RETAINED 700CC ~ NELSON PLACED ~ NOW AGITATED D/T NELSON ~ SINUS TACHY D/T AGITATION
--- NOTE | 2018-08-12 10:00 | NUR ---
DISCHARGE DISCUSSED DISCHARGE WITH DR GOODMAN DISCHARGE WHEN CLEARED BY UROLOGY...ORDER ENTERED
--- NOTE | 2018-08-12 10:47 | NUR ---
INSURANCE REVIEWS FAXED TO [facility] [place]: OSIEL [phone].............REVIEW/CLINICAL
[2018-08-12 12:00] VITALS: BP 126/78
--- NOTE | 2018-08-12 12:13 | General Progress Note ---
Assessment/Plan Problem List: (1) Hyponatremia ICD Codes: E87.1 - Hypo-osmolality and hyponatremia SNOMED: 78314324 (2) Chest pain ICD Codes: R07.9 - Chest pain, unspecified SNOMED: 97388051 (3) Renal mass ICD Codes: N28.89 - Other specified disorders of kidney and ureter SNOMED: 804907540 (4) Urinary retention ICD Codes: R33.9 - Retention of urine, unspecified SNOMED: 494189187 (5) Iron deficiency anemia ICD Codes: D50.9 - Iron deficiency anemia, unspecified SNOMED: 37867895 (6) HTN (hypertension) ICD Codes: I10 - Essential (primary) hypertension SNOMED: 65548950 Status: stable, progressing Assessment/Plan: cont Flomax voiding trial F/U free water restriction Follow s Na Discussed with RN Subjective Allergies: Coded Allergies: No Known Allergies (Unverified , 05/28/12) Subjective confused Objective Last 24 Hour Vital Signs Date Time Temp Pulse Resp B/P (MAP) Pulse Ox O2 Delivery O2 Flow Rate FiO2 08/12/18 08:43 137 128/82 08/12/18 08:42 128/82 08/12/18 08:00 98.3 137 15 128/82 (97) 96 08/12/18 08:00 136 08/12/18 04:00 97.5 128 22 128/60 (82) 98 08/12/18 04:00 131 08/12/18 00:00 98.6 97 20 111/67 (82) 96 08/12/18 00:00 92 08/11/18 21:00 Room Air 08/11/18 20:00 84 08/11/18 20:00 98.2 94 20 102/62 (75) 94 08/11/18 16:00 98.4 75 20 131/61 (84) 94 08/11/18 16:00 77 Intake and Output 08/11/18 08/12/18 19:00 07:00 Intake Total 260 ml Balance 260 ml Intake Oral 260 ml Laboratory Tests 08/12/18 05:39: Sodium Level 130L, Potassium Level 5.3H, Chloride Level 95L, Carbon Dioxide Level 21, Anion Gap 15, Blood Urea Nitrogen 14, Creatinine 1.0, Estimat Glomerular Filtration Rate , Glucose Level 160H, Calcium Level 9.6 Height (Feet): 5 Height (Inches): 3.00 Weight (Pounds): 105 Cardiovascular: normal rate Respiratory/Chest: lungs clear Edema: no edema noted Generalized Zac Alejo MD Aug 12, 2018 12:13
--- NOTE | 2018-08-12 12:54 | Surgery Progress Note ---
Surgery Progress Note Subjective Additional Comments no acute events. Objective Last 24 Hour Vital Signs Date Time Temp Pulse Resp B/P (MAP) Pulse Ox O2 Delivery O2 Flow Rate FiO2 08/12/18 08:43 137 128/82 08/12/18 08:42 128/82 08/12/18 08:00 98.3 137 15 128/82 (97) 96 08/12/18 08:00 136 08/12/18 04:00 97.5 128 22 128/60 (82) 98 08/12/18 04:00 131 08/12/18 00:00 98.6 97 20 111/67 (82) 96 08/12/18 00:00 92 08/11/18 21:00 Room Air 08/11/18 20:00 84 08/11/18 20:00 98.2 94 20 102/62 (75) 94 08/11/18 16:00 98.4 75 20 131/61 (84) 94 08/11/18 16:00 77 I&O Intake and Output 08/11/18 08/12/18 19:00 07:00 Intake Total 260 ml Balance 260 ml Intake Oral 260 ml Dressing: dry Wound: clean Drains: other Cardiovascular: RSR Respiratory: clear Abdomen: soft, present bowel sounds, non-distended Extremities: no edema, no tenderness, no cyanosis Laboratory Tests Test 08/12/18 05:39 Sodium Level 130 MMOL/L (136-145) L Potassium Level 5.3 MMOL/L (3.5-5.1) H Chloride Level 95 MMOL/L (98-107) L Carbon Dioxide Level 21 MMOL/L (21-32) Anion Gap 15 mmol/L (5-15) Blood Urea Nitrogen 14 mg/dL (7-18) Creatinine 1.0 MG/DL (0.55-1.30) Estimat Glomerular Filtration Rate mL/min (>60) Glucose Level 160 MG/DL (74-106) H Calcium Level 9.6 MG/DL (8.5-10.1) Plan Problems: (1) Hyponatremia (2) Chest pain (3) Renal mass (4) Urinary retention (5) Iron deficiency anemia (6) HTN (hypertension) (7) Decubitus skin ulcer Assessment & Plan: Patient presented with open DTI of sacral region. area 4cm x 3cm with 1cm opening just caudal to the coccyx. tender on palpation. no drainage. no signs of active infection. periwound with erythema. patient with non blanching erythema to heels and right hip. Patient not eating well and malnourished He is otherwise comfortable now He is able to move independently in bed I spoke with patient and family in regards to findings. He is at high risk for developing worsening decubitus and in multiple areas. Will assist with care and advise family of plan to ensure healing and not worsening Pt presented on admission with multiple pressure injuries.Open DTPI noted to sacrum .Base of wound purple over sacrum with maroon discoloration extending into R and L buttocks(L)7 cm x (W)6.5cm.Within base of wound R buttocks, a small open area with slough noted(L)0.5cm x (W)0.6cm. Pt verbalized sacral area is painful when minimally palpated. Non-blanchable erythema with fluctuance noted to L heel. Pt verbalized heel is tender when minimally palpated. Non-blanchable erythema with fluctuance noted to R heel . Pt complained of tenderness when minimally palpated. Category 3 skin tear with 100% flap loss noted to lateral L tibia. No exudate noted. Non-blanchable erythema without induration or fluctuance noted to R elbow. Tx.Plan: Cleanse sacral wound with Saline. Apply Therahoney to slough. Apply Moisture Barrier periwound. Cover with Optifoam drsg. Change every 3 days and prn. Apply Cavilon Skin Barrier to both heels. Cover each heel with Optifoam drsg. Change every 7 days and prn. Apply Cavilon Skin barrier to R and L elbows. Cover each elbow with Optifoam drsg. Change every 7 days and prn. Cleanse skin tear lateral L tibia with Saline. Cover with Optifoam drsg. Change every 7 days and prn. APM/TIFFANY mattress overlay. Off-load heels with pillow. off load pressure turn q2h thank you will follow with Raúl Cruz Aug 12, 2018 12:54
--- NOTE | 2018-08-12 13:05 | NUR ---
NURSE NOTES: Received call from urologist. he asked that we DC the yung and monitor patient for 3 hours to post voiding residual. He asked that I call him if and when the patient voids or if he does not void in 3 hours to [phone]. WIll monitor the patient.
--- NOTE | 2018-08-12 13:10 | NUR ---
NURSE NOTES: Baltazar catheter discontinued as ordered without difficulty. Patient denies pain or discomfort no bleeding noted. Will monitor PVR after 3 hours as per mds order.
[2018-08-12] MEDS ORDERED: Tubing IV Secondary IV ONE (15:42)
[2018-08-12 16:00] VITALS: BP 125/79
--- NOTE | 2018-08-12 16:37 | Cardiology Report ---
APPROVED REPORT EKG Measurement Heart [id number] Normal sinus rhythm Moderate voltage criteria for LVH, may be normal variant Septal infarct, age undetermined Abnormal ECG
--- NOTE | 2018-08-12 17:00 | NUR ---
Dr. Marr notified patient hasnt voided after 3 hours. Bladder scan performed with 303 ml of residuals. will follow.
--- NOTE | 2018-08-12 17:30 | NUR ---
NURSE NOTES: received call back from dr. Foss, he stated to contact Dr. Alejo and check if pt will be discharged today or tomorrow. Per Dr. Foss, if pt is still unable to void at time of discharge he may have to be discharged with a yung. Contacted Dr. Alejo asking if pt will be discharged tomorrow. will await a call back
--- NOTE | 2018-08-12 17:35 | NUR ---
NURSE NOTES: Per Dr. Foss, if patient is unable to void in an hour reinsert yung (18 bruneian) and if patient gets discharged he can be discharged home with a yung. We are to recheck bladder scan in one hour and notify him
--- NOTE | 2018-08-12 18:31 | NUR ---
NURSE NOTES: Bladder scan repeated PVR >389 ml. Patients bladder distended, patient is uncomfortable. CAll out to MD awaiting call back.
--- NOTE | 2018-08-12 19:04 | NUR ---
received call back from urologist. reinsert yung and removed tomorrow morning at 0900 to see if pt is able to void. If not, he will be discharged with a yung
--- NOTE | 2018-08-12 19:15 | Consultation ---
DATE OF CONSULTATION: 08/12/2018 HISTORY OF PRESENT ILLNESS: The patient is an 88-year-old male with a history of multiple medical problems including hypertension, diabetes, who has been admitted to the hospital due to chest pain. I was asked by Dr. Alejo to see this patient for severe agitation. The patient presents with anxiety, agitation, memory impairment, waxing and waning consciousness, easily agitated. He received a shot last night. The patient is having poor insight and judgment. PAST PSYCHIATRIC HISTORY: Significant for depression and cognitive impairment. PAST MEDICAL HISTORY: Significant for: 1. Hypertension. 2. Diabetes. ALLERGIES: No known drug allergies. SUBSTANCE ABUSE HISTORY: The patient has no history of substance use disorder or alcohol abuse. Not a nonsmoker. MENTAL STATUS EXAMINATION: The patient alert and oriented times self. He is unreliable historian. Unable to provide any meaningful history. The patient is in bilateral restraints. Mood is neutral to agitation. Affect is blunted. Congruent with mood. Thought process is tangential. Thought content no suicidal, or homicidal ideations. Cognition is impaired. ASSESSMENT: [place] I Acute encephalopathy. Anxiety disorder [place] II Deferred. [place] III As above. [place] IV Low. [place] V 20 PLAN: 1. The patient was given a shot last night due to severe agitation. 2. Continue olanzapine 2.5 mg b.i.d. 3. Olanzapine as needed. 4. Provide the patient with reality orientation and supportive therapy. 5. Continue restrains. Barbi Mullen M.D. DR: Tor JOB#: [id number] CC:
--- NOTE | 2018-08-12 19:42 | NUR ---
HAND-OFF: Report given to Davon White. Plan of care endorsed
--- NOTE | 2018-08-12 19:50 | NUR ---
NURSE NOTES: Received report from LEVI Yates. Patient in bed awake showing no signs of acute distress. Respiration even and non labored on room air. IV line patent and intact. No Yung noted but 18fr yung to be restarted per MD. Side rails up x3. Pt. on bilateral soft wrist restraints for removing device and safety, no injury noted, skin is intact, cap. refill < 3sec. Bed in lowest position. Wheel locked and alarm on. Call light within reach. All need attended and met. Will continue plan of care
[2018-08-12 20:00] VITALS: BP 129/83
[2018-08-12] MEDS: Iron Sucrose 100 MG in NS 55 ML IVPB SCH (22:29)
[2018-08-12] MEDS: Tamsulosin 0.4mg cap ORAL SCH (22:29)
[2018-08-12] MEDS: Latanoprost 0.005% Opth 2.5ml Soln BOTH EYES SCH (22:30)
[2018-08-13] VITALS: BP 138/60
[2018-08-13 04:00] VITALS: BP 128/75
[2018-08-13] MEDS: NovoLOG Insulin Flexpen SUBQ SCH ×3 (06:07→16:30)
--- NOTE | 2018-08-13 07:25 | NUR ---
NURSE NOTES: Report received from Calvin SIMS. Awake and responsive to verbal stimuli. Pt in bed awake. No c/o pain at this time. No acute distress noted. Bed in lowest position and locked. On Bilateral wrist soft restraints and no skin color change noted and able to put two fingers in each restraints. F/C cath with 18fr intact and patent with yellow color urine noted in urine drainage bag. IV in RFA 22G SL intact and asymptomatic. Will try to remove F/C cath @9am and monitor voiding. Will continue to plan of care.
--- NOTE | 2018-08-13 07:29 | NUR ---
HAND-OFF: Report given to LEVI Kwan.
[2018-08-13 08:00] VITALS: BP 121/66
[2018-08-13] MEDS: OLANZapine 2.5mg tab ORAL SCH ×2 (08:49→17:21)
[2018-08-13] MEDS: Magnesium Oxide 400mg tab ORAL SCH ×3 (08:49→17:20)
[2018-08-13] MEDS: Aspirin Baby 81mg ORAL SCH (08:49)
[2018-08-13] MEDS: Benazepril 10mg tab ORAL SCH (08:49)
[2018-08-13] MEDS: Timolol 0.5% Op Soln 2.5ml BOTH EYES SCH ×2 (08:52→17:20)
[2018-08-13] MEDS: Demeclocycline 150mg tab ORAL SCH (08:52)
--- NOTE | 2018-08-13 09:05 | NUR ---
NURSE NOTES: f/C 18fr removed as ordered. No blood or foul smelling noted.
--- NOTE | 2018-08-13 10:47 | NUR ---
CASE MANAGEMENT:REVIEW 08/13/18 SI: HYPONATREMIA.CHEST PAIN RENAL MASS. URINARY RETENTION T 97.3 HR 126 RR 20 B/P 121/66 SATS 95% ON RA NO LABS TODAY IS: DECLOMYCIN PO Q12 ZYPREXA PO BID FLOMAX PO QHS IV VENOFER QHS MAG OXIDE PO TID ASA PO QD NORVASC PO QD LOTENSIN PO QD PLAVIX PO QD NEURONTIN PO TID : TELEMETRY DCP: FROM HOME
--- NOTE | 2018-08-13 10:48 | NUR ---
INSURANCE REVIEWS FAXED TO [facility] [place]: OSIEL [phone].............REVIEW/CLINICAL
[2018-08-13 12:00] VITALS: BP 119/60
--- NOTE | 2018-08-13 12:02 | Surgery Progress Note ---
Surgery Progress Note Subjective Additional Comments no acute events. resting comfortable family at bedside and state they fell he is doing better no n/v/f/c. Objective Last 24 Hour Vital Signs Date Time Temp Pulse Resp B/P (MAP) Pulse Ox O2 Delivery O2 Flow Rate FiO2 08/13/18 09:00 Room Air 08/13/18 08:49 121/66 08/13/18 08:49 126 121/66 08/13/18 08:00 97.3 126 20 121/66 (84) 95 08/13/18 04:00 124 08/13/18 04:00 97.4 123 20 128/75 (92) 97 08/13/18 00:00 106 08/13/18 00:00 97.4 121 20 138/60 (86) 95 08/12/18 21:00 Room Air 08/12/18 20:00 97.9 117 22 129/83 (98) 97 08/12/18 20:00 99 08/12/18 16:30 100 08/12/18 16:00 98.0 102 17 125/79 (94) 98 I&O Intake and Output 08/12/18 08/13/18 19:00 07:00 Intake Total 400 ml 240 ml Output Total 400 ml 700 ml Balance 0 ml -460 ml Intake Oral 400 ml 240 ml Output Urine Total 400 ml 700 ml Drains: none Cardiovascular: RSR Respiratory: clear Abdomen: soft, present bowel sounds, non-distended Extremities: no cyanosis Plan Problems: (1) Hyponatremia (2) Chest pain (3) Renal mass (4) Urinary retention (5) Iron deficiency anemia (6) HTN (hypertension) (7) Decubitus skin ulcer Assessment & Plan: Patient presented with open DTI of sacral region. area 4cm x 3cm with 1cm opening just caudal to the coccyx. tender on palpation. no drainage. no signs of active infection. periwound with erythema. patient with non blanching erythema to heels and right hip. Patient not eating well and malnourished He is otherwise comfortable now He is able to move independently in bed I spoke with patient and family in regards to findings. He is at high risk for developing worsening decubitus and in multiple areas. Will assist with care and advise family of plan to ensure healing and not worsening Pt presented on admission with multiple pressure injuries.Open DTPI noted to sacrum .Base of wound purple over sacrum with maroon discoloration extending into R and L buttocks(L)7 cm x (W)6.5cm.Within base of wound R buttocks, a small open area with slough noted(L)0.5cm x (W)0.6cm. Pt verbalized sacral area is painful when minimally palpated. Non-blanchable erythema with fluctuance noted to L heel. Pt verbalized heel is tender when minimally palpated. Non-blanchable erythema with fluctuance noted to R heel . Pt complained of tenderness when minimally palpated. Category 3 skin tear with 100% flap loss noted to lateral L tibia. No exudate noted. Non-blanchable erythema without induration or fluctuance noted to R elbow. Tx.Plan: Cleanse sacral wound with Saline. Apply Therahoney to slough. Apply Moisture Barrier periwound. Cover with Optifoam drsg. Change every 3 days and prn. Apply Cavilon Skin Barrier to both heels. Cover each heel with Optifoam drsg. Change every 7 days and prn. Apply Cavilon Skin barrier to R and L elbows. Cover each elbow with Optifoam drsg. Change every 7 days and prn. Cleanse skin tear lateral L tibia with Saline. Cover with Optifoam drsg. Change every 7 days and prn. APM/TIFFANY mattress overlay. Off-load heels with pillow. off load pressure turn q2h thank you will follow with Raúl Cruz Aug 13, 2018 12:02
[2018-08-13] MEDS ORDERED: DECLOMYCIN150 MG ORAL (14:21)
[2018-08-13] MEDS ORDERED: FLOMAX0.4 MG ORAL (14:22)
--- NOTE | 2018-08-13 14:29 | General Progress Note ---
Assessment/Plan Problem List: (1) Hyponatremia ICD Codes: E87.1 - Hypo-osmolality and hyponatremia SNOMED: 73101549 (2) Chest pain ICD Codes: R07.9 - Chest pain, unspecified SNOMED: 79661156 (3) Renal mass ICD Codes: N28.89 - Other specified disorders of kidney and ureter SNOMED: 461167305 (4) Urinary retention ICD Codes: R33.9 - Retention of urine, unspecified SNOMED: 436840100 (5) Iron deficiency anemia ICD Codes: D50.9 - Iron deficiency anemia, unspecified SNOMED: 40386985 (6) HTN (hypertension) ICD Codes: I10 - Essential (primary) hypertension SNOMED: 35538671 Status: stable, progressing Assessment/Plan: cont Flomax yung. Pt could not void free water restriction Dc today Discussed with RN Subjective Allergies: Coded Allergies: No Known Allergies (Unverified , 05/28/12) Subjective confused Objective Last 24 Hour Vital Signs Date Time Temp Pulse Resp B/P (MAP) Pulse Ox O2 Delivery O2 Flow Rate FiO2 08/13/18 12:00 97.3 95 21 119/60 (79) 98 08/13/18 12:00 100 08/13/18 09:00 Room Air 08/13/18 08:49 121/66 08/13/18 08:49 126 121/66 08/13/18 08:00 121 08/13/18 08:00 97.3 126 20 121/66 (84) 95 08/13/18 04:00 124 08/13/18 04:00 97.4 123 20 128/75 (92) 97 08/13/18 00:00 106 08/13/18 00:00 97.4 121 20 138/60 (86) 95 08/12/18 21:00 Room Air 08/12/18 20:00 97.9 117 22 129/83 (98) 97 08/12/18 20:00 99 08/12/18 16:30 100 08/12/18 16:00 98.0 102 17 125/79 (94) 98 Intake and Output 08/12/18 08/13/18 19:00 07:00 Intake Total 400 ml 240 ml Output Total 400 ml 700 ml Balance 0 ml -460 ml Intake Oral 400 ml 240 ml Output Urine Total 400 ml 700 ml Height (Feet): 5 Height (Inches): 3.00 Weight (Pounds): 105 Cardiovascular: normal rate Respiratory/Chest: lungs clear Zac Alejo MD Aug 13, 2018 14:29
[2018-08-13 16:00] VITALS: BP 119/64
--- NOTE | 2018-08-13 19:15 | NUR ---
Discharge: Patient is being discharged from medical care. Awake, alert and oriented x2 and albanian speaking. After care instructions, including referral to community resources were given. Patient's son verbalized understanding of After care instructions; at this time patient does not request medications, equipment or placement and patient will be discharged to [facility]'s house. Patient's son signed patient consent in the medical record for patient destination upon discharge. All medical devices such as IV, athletic monitor and ID band were removed. Patient picked up by ambulance personnels via gurney with all personal belongings. Yung catheter instruction given to patient's son and grand daughter. And family will contact the family doctor to get the home health service for yung cath management and wound care.
--- NOTE | 2018-08-13 21:45 | Progress Note ---
DATE: 08/13/2018 SUBJECTIVE: The patient is calmer and more manageable still has episodes of agitation and memory impairment. MENTAL STATUS EXAMINATION: The patient is alert and oriented to self. Mood is agitated to neutral. Affect is flat. Thought process, there is a paucity of thought content. Thought content, no suicidal or homicidal ideation. ASSESSMENT: Dementia with behavior disturbance. PLAN: 1. We will continue current medications. 2. Provide the patient with reality orientation and supportive therapy. Barbi Mullen M.D. DR: BAM JOB#: [id number] CC:
--- NOTE | 2018-08-14 11:42 | Discharge Summary ---
Discharge Summary Discharge Summary _ DATE OF ADMISSION: 08/08/2018 DATE OF DISCHARGE: 08/13/2018 DISCHARGED BY: Dr. Zac Alejo CONSULTANTS: Dr. Barbi Foss BRIEF HOSPITAL COURSE: Patient is an 88-year-old male, who did not speak Greenlandic. History was obtained through a balancing machine operator and family who were present at bedside. The patient was recently discharged from [facility]. The family stated patient was diagnosed with what they think of as being a stroke, but unclear of what the symptoms were. Patient had hyponatremia. Patient did not have any weakness on any side of the body. He was brought to [place] emergency room due to intermittent episodes of pressure-like sensation to the chest and was complaining of hiccups for the past 24 hours prior to admission. He has medical history significant for hypertension and diabetes. On evaluation at the ED, vital signs were stable. Blood work did not show any leukocytosis. Hemoglobin was 9.4 and hematocrit 30. Sodium was 117. Chloride 86. Potassium was normal. Troponin was 0.017. proBNP was elevated to 2527. Patient was started on hypertonic saline due to severe hyponatremia. She was noted to have inverted T waves in leads V1 and V2. Head CT did not show any acute intracranial abnormality. CT of the chest read by the radiologist showed a 5 cm complex right renal lesion as well as coronary artery calcification. Then admitted due to severe hyponatremia, which could have caused the hiccups and to rule out chest pain. He was given 3% saline solution. 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 He was given demeclocycline when he was discharged from [facility]. He was placed on free water restriction 800 mL/day. He was continued on demeclocycline 300 mg twice a day anemia work-up was done. Patient is also hypomagnesemic, he was given oral magnesium supplements. 25 hydroxy vitamin D3 was 33. TSH was normal. Cortisol level was normal. Blood glucose was monitored. He was given insulin sliding scale. Hemoglobin A1c 7.0. Elementary Spanish Teacher was consulted for evaluation of chest pain. Chest pain was described to be pressure-like, nonradiating. There were no associated symptoms of dyspnea, nausea, vomiting or diaphoresis. Symptoms somewhat improved after drinking water. EKG was abnormal with T wave inversions in the anteroseptal leads suggestive of previous anteroseptal infarct. He was given aspirin and Plavix for possible coronary artery disease as well as recent CVA. Lipid panel showed LDL of 33, HDL 32, cholesterol 85, triglyceride 131. He was given benazepril and amlodipine for blood pressure control. He was noted to have anemia. Anemia work-up showed low iron levels. He was given IV iron. On admission, patient was noted to have an open deep tissue injury on the sacral area. Surgery was called to evaluate and assist with care. On evaluation, external area with 1 cm opening caudal to the coccyx. There was no sign of active infection, no drainage. He had non-blanchable erythema and fluctuance noted to bilateral heels. Category 3 skin tear with 100% flap loss noted to the lateral left tibia with no exudates. Non-blanchable erythema without induration or fluctuance noted on the right elbow. He was given wound care. Patient is able to move independently in bed. He was given education on wound care and prevention of decubitus. He was encouraged frequent repositioning and offloading. Patient was not eating well and malnourished. He was advised nutritional optimization. Patient had problems with urgency and frequency. He had urinary retention and had Baltazar catheter inserted. He was found to have a calcified exophytic 5 cm lobulated renal mass imaging. He was started on Flomax. He was given voiding trials. Per urologist, renal mass is calcified, exophytic, and did not appear to be an aggressive tumor; for his age and condition, mass was almost irrelevant. He was ruled out for MD. Initial symptoms were atypical for angina. He was recommended to consider elective stress testing as outpatient. Patient was easily agitated and had waxing and waning of consciousness. Psychiatrist was consulted. He was diagnosed with acute encephalopathy. He was given olanzapine 2.5 mg twice daily. He was given reality orientation and supportive therapy. Sodium levels improved. Patient still unable to void. He was discharged with Baltazar catheter. Family and patient was given instructions on Baltazar catheter care and to follow-up with PMD. FINAL DIAGNOSES: Hyponatremia Urinary retention Iron deficiency anemia Hypertension Renal mass Dementia with behavioral disturbance Sacral with open DTI, present on admission Acute encephalopathy Chest pain, ruled out for MD, atypical for angina Moderate protein calorie malnutrition DISPOSITION: Patient was discharged home. DISCHARGE MEDICATIONS: Refer to Discharge Medication List. DISCHARGE INSTRUCTIONS: Follow-up with PCP in a week. I have been assigned to complete a discharge summary on this account, I was not involved with the patient's management.--TALIA Rangel Jacqueline Robles NP Aug 14, 2018 11:42
== END 2018-08-13 19:15 | disposition home or self-care (01) | DRG 644 ==
LOC: EDBD 17:11 → EMR 17:51 → EDBEDREQ 19:26 → 2E 19:28 → EDBEDREQ 19:33
DX: E22.2 Syndrome of inappropriate secretion of antidiuretic hormone (principal); E44.0 Moderate protein-calorie malnutrition; Z68.1 Body mass index [BMI] 19.9 or less, adult; F03.91 Unspecified dementia, unspecified severity, with behavioral disturbance; G93.40 Encephalopathy, unspecified; L89.150 Pressure ulcer of sacral region, unstageable; R07.89 Other chest pain; E83.42 Hypomagnesemia; L89.152 Pressure ulcer of sacral region, stage 2; R06.6 Hiccough; R33.8 Other retention of urine; N28.89 Other specified disorders of kidney and ureter; D50.9 Iron deficiency anemia, unspecified; I10 Essential (primary) hypertension; Z86.73 Personal history of transient ischemic attack (TIA), and cerebral infarction without residual deficits; F41.9 Anxiety disorder, unspecified; E11.9 Type 2 diabetes mellitus without complications
CPT/HCPCS: 36415; 70450; 71275; 80048; 80053; 80061; 81003; 82306; 82533; 82570; 82962; 83036; 83540; 83550; 83735; 83880; 83935; 84300; 84443; 84484; 85025; 85610; 85730; 87081; 93005; 93306; 96361; 96374; 96375; 99291; J1815

== ENCOUNTER 2018-09-03 11:23 | Inpatient (IN) | payer MEDICARE, MEDICAID ==
[~2018-09-03] VITALS: Ht 175.3 cm; Wt 61.2 kg
[2018-09-03 11:23] VITALS: BP 124/56
[~2018-09-03 11:23] MED LIST changes: +CALCIUM500 M2 PO; +CALCIUM500 M3 PO; +DECLOMYCIN150 MG ORAL; +FLOMAX0.4 MG ORAL; +GLIPIZIDE-METF1 EAC2 PO; +Hydrocortisone 2.5% TOPIC; +LIPITOR80 MG ORAL; +METOPROLOL SUCC50 MG ORAL; +OMEPRAZOLE40 M1 ORAL; +PANTOPRAZOLE SO40 MG ORAL; +PLAVIX75 MG ORAL; +SIMVASTATIN10 MG ORAL; +TRAMADOL HCL50 MG ORAL; +VITAMIN E400 UNIT PO; +ZOFRAN4 M3 ORAL
--- NOTE | 2018-09-03 11:23 | NUR ---
ED Nurse Note: PT FROM HOME CAME IN DUE TO BLACK TARRY STOOLS X 3 DAYS. DENIES DIARRHEA BUT STATES HE IS CONSTIPATED. ALSO C/O VOMITING. AAO X4, FOLLOWS COMMANDS WITH NON LABORED BREATHING. NOTED INDWELLING URINARY CATH WITH LEG BAG. AT THE BED SIDE.
[2018-09-03] MEDS ORDERED: Pantoprazole Inj IVP ONE (11:30)
[2018-09-03] MEDS ORDERED: Pantoprazole 80 MG in NS 250 ML IV ONE (11:30)
[2018-09-03 11:46] LABS: BASOPHILS % (AUTO) 0.8 % (0.0-2.0); HEMATOCRIT 31.4 % (42.0-52.0); LYMPHOCYTES % (AUTO) 15.1 % (20.0-45.0); MEAN CORPUSCULAR VOLUME 85 FL (80-99); MONOCYTES % (AUTO) 8.9 % (1.0-10.0); NEUTROPHILS % (AUTO) 74.2 % (45.0-75.0); PLATELET COUNT 385 K/UL (150-450); RED BLOOD COUNT 3.69 M/UL (4.70-6.10); RED CELL DISTRIBUTION WIDTH 27.4 % (11.6-14.8); WHITE BLOOD COUNT 7.5 K/UL (4.8-10.8)
[2018-09-03 12:02] LABS: ANION GAP 9 mmol/L (5-15); BLOOD UREA NITROGEN 18 mg/dL (7-18); CALCIUM 8.9 MG/DL (8.5-10.1); CARBON DIOXIDE 21 MMOL/L (21-32); CHLORIDE 99 MMOL/L (98-107); CREATININE 1.1 MG/DL (0.55-1.30); POTASSIUM 3.6 MMOL/L (3.5-5.1); SODIUM 129 MMOL/L (136-145)
--- NOTE | 2018-09-03 12:02 | NUR ---
ED Nurse Note: URINE/BLOOD SENT. HEMOCCULT TEST DONE BY DR EASLEY.
[2018-09-03 12:07] LABS: ALANINE AMINOTRANSFERASE 19 U/L (12-78); ALBUMIN 2.5 G/DL (3.4-5.0); ALBUMIN/GLOBULIN RATIO 0.7 (1.0-2.7); ALKALINE PHOSPHATASE 94 U/L (46-116); ASPARTATE AMINO TRANSFERASE 33 U/L (15-37); BILIRUBIN,TOTAL 0.5 MG/DL (0.2-1.0)
[2018-09-03 12:11] LABS: APPEARANCE,URINE TURBID; BILIRUBIN, URINE NEGATIVE (NEGATIVE); GLUCOSE, URINE (UA) 1+ (NEGATIVE); KETONES,URINE 1+ (NEGATIVE); LEUKOCYTE ESTERASE ,URINE 3+ (NEGATIVE); NITRITE,URINE NEGATIVE (NEGATIVE); PH,URINE 8 (4.5-8.0); PROTEIN,URINE 2+ (NEGATIVE); UROBILINOGEN,URINE NORMAL MG/DL (0.0-1.0)
[2018-09-03 12:12] LABS: COLOR,URINE RED
[2018-09-03 12:30] VITALS: BP 135/60
--- NOTE | 2018-09-03 12:44 | Diagnostic Imaging Report ---
Indication: Chest pain Comparison: 07/04/2016 A single view chest radiograph was obtained. Findings: Lung volumes are low. Heart size is normal. Bones are osteopenic. IMPRESSION: No acute disease
--- NOTE | 2018-09-03 12:44 | NUR ---
ED Nurse Note: NOTED REDNESS ON SACRUM.
--- NOTE | 2018-09-03 13:20 | Emergency Room Report ---
History of Present Illness General Chief Complaint: General Complaint Source: Patient, Family Member, Medical Record Present Illness HPI 88yo M p/w 3 days of melena. He has a h/o hyponatremia, renal mass with chronic yung, htn, sacral decubitus ulcer, dm, hyperlipidemia, bph. His reports he also has been complaining of nausea, but no vomiting, +blood in urea. No h/o blood thinner use. Allergies: Coded Allergies: No Known Allergies (Unverified , 05/28/12) Patient History Past Medical History: see triage record Reviewed Nursing Documentation: PMH: Agreed; PSxH: Agreed Nursing Documentation-PMH Hx Cardiac Problems: Yes Hx Hypertension: Yes Hx Diabetes: Yes Hx Cancer: No Hx Gastrointestinal Problems: No Hx Neurological Problems: No Review of Systems All Other Systems: negative except mentioned in HPI Physical Exam Vital Signs Date Time Temp Pulse Resp B/P (MAP) Pulse Ox O2 Delivery O2 Flow Rate FiO2 09/03/18 11:10 97.5 90 18 107/67 (80) 96 Room Air Sp02 EP Interpretation: reviewed, normal General Appearance: no apparent distress, alert, non-toxic Head: normocephalic Eyes: bilateral eye normal inspection, bilateral eye PERRL, bilateral eye EOMI ENT: normal ENT inspection, hearing grossly normal, normal pharynx, no angioedema, normal voice, moist mucus membranes Neck: normal inspection, full range of motion, supple, supple/symm/no masses Respiratory: chest non-tender, lungs clear, normal breath sounds, chest symmetrical, palpation of chest normal Cardiovascular #1: normal peripheral pulses, regular rate, rhythm, no edema Cardiovascular #2: 2+ radial (R), 2+ radial (L) Gastrointestinal: normal inspection, non tender, soft, no mass, no guarding, no rebound Rectal: normal rectal tone, heme negative stool, prostate non-tender Genitourinary: normal inspection, no CVA tenderness, penis normal, other - blood in yung collection bag Musculoskeletal: back normal, gait/station normal, normal range of motion, non- tender, no calf tenderness Neurologic: alert, responsive, bookstore clerk III-XII nml as tested, sensory intact Psychiatric: mood/affect normal Skin: Decubitus/Ulcer - sacral decub, warm/dry Lymphatic: no adenopathy Medical Decision Making Diagnostic Impression: Primary Impression: History of melena Additional Impression: Hematuria, gross ER Course Given IV pantoprazole, hemoglobin is at baseline, patient with gross hematuria, but no active GI bleeding based on examination, but per history he has been having intermittent melanotic stools. Will admit to telemetry at this time for GI consultation and send out stools. Patient also likely needs flushing of Yung catheter. EKG Diagnostic Results EKG Time: 11:34 EP Interpretation: no stemi Rate: normal Rhythm: NSR ST Segments: no acute changes ASA given to the pt in ED: No Rhythm Strip Diag. Results Rhythm Strip Time: 13:18 EP Interpretation: yes Rate: 80 Rhythm: NSR, no PVC's, no ectopy Chest X-Ray Diagnostic Results Chest X-Ray Diagnostic Results : Chest X-Ray Ordered: Yes # of Views/Limited/Complete: 1 View Indication: Other - gibleed EP Interpretation: Yes Interpretation: no consolidation, no effusion, no pneumothorax, no acute cardiopulmonary disease Impression: No acute disease Electronically Signed by: Rakan Marcano MD Last Vital Signs Date Time Temp Pulse Resp B/P (MAP) Pulse Ox O2 Delivery O2 Flow Rate FiO2 09/03/18 11:23 86 15 Room Air 09/03/18 11:23 97.5 124/56 99 Disposition: ADMITTED INPATIENT Condition: Stable Referrals: NON PHYSICIAN (PCP) RAKAN MARCANO M.D Sep 03, 2018 13:20
--- NOTE | 2018-09-03 13:32 | NUR ---
ED Nurse Note: TRIED TO CALL FOR REPORT. SPOKE TO ALIS ANNE RN OF TELEMETRY AND NO RN ASSIGNED YET FOR THIS PT.
[2018-09-03 13:53] VITALS: BP 113/56
--- NOTE | 2018-09-03 14:03 | NUR ---
ED Nurse Note: REPORT GIVEN TO AIRAM SIMS OF TELEMETRY UNIT.
--- NOTE | 2018-09-03 14:27 | NUR ---
ED Nurse Note: PT TRANSFERRE DOT TELEMETRY UNIT VIA GURNEY. VSS. BELONGINGS SENT WITH PT INCLUDING WHEELCHAIR.
--- NOTE | 2018-09-03 14:40 | NUR ---
NURSE NOTES: Pt arrived to the unit on gurney in stable condition, report given by LEVI Stoner. IV patent and asymptomatic, and running at RX dose. pt on room air, Ox3 calm and cooperative, patient's at bed side. Patient admitted with urinary catheter and RN change the bag, patient has hematuria, Dr. Núñez aware. Heart monitor on, Vital sign stable. Bed side table and call light within reach. Bed alarm on. Will continue plan of care.
[2018-09-03] MEDS: D5NS 1,000 ML IV SCH (15:12)
[2018-09-03 16:00] VITALS: BP 116/55
[2018-09-03] MEDS: NovoLOG Insulin Flexpen SUBQ SCH ×2 (16:30→21:58)
--- NOTE | 2018-09-03 16:30 | NUR ---
NURSE NOTES:WOUND CARE NOTES:Pt presented on admission with multiple pressure injuries. DTPI noted to Sacrum .Base of wound maroon with fluctuance. dark purple area noted to coccygeal area.(L)8cm x (W)6cm. Pt verbalized tenderness when site minimally palpated. Non-blanching erythema without induration or fluctuance periwound. Scrotal area is red but intact. Non-blanchable erythema without induration or fluctuance R trochanter.(L)4cm x (W)3.5cm. Tender when minimally palpated. Non-blanching erythema without induration or fluctuance L trochanter.(L)6cm x (W)7cm. Non-tender when palpated. Non-blanchable erythema with fluctuance R heel. Tender when minimally palpated. Non-blanchable erythema with fluctuance L heel. Tender when minimally palpated. Tx.plan: Apply Moisture Barrier paste to Sacrum. Cover with Optifoam drsg. Change very 3 days and prn. Apply Cavilon Skin Barrier to R and L trochanteric areas. Cover each site with Optifoam drsg. Change every 7 days and prn. Apply Moisture Barrier Paste to scrotal area with each incontinence care. Apply Cavilon Skin Barrier to both heels. Cover each heel with Optifoam drsg. Change very 7 days and prn. APM/TIFFANY mattress overlay. Reposition at least every 2hours or as tolerated. Off-load heels with pillow.
[2018-09-03] MEDS: metFORMIN 500mg tab ORAL SCH (18:02)
--- NOTE | 2018-09-03 19:22 | NUR ---
HAND-OFF: Report given to LEVI Davidson.
--- NOTE | 2018-09-03 19:30 | NUR ---
NURSE NOTES: Pt received from LEVI Cook alert and oriented x4, primarily Emirati-speaking with no acute s/s of distress noted at bedside. Pt stated 7/10 aching rectal pain, RN offered Tylenol PRN but pt stated that Tylenol "does not work for me". RN endorsed to Dr. Victoria who provided order for Morphine 1 mg PRN for pain q4h. Will carry out orders. Baltazar catheter patent and draining. Bed alarm on. Bed in lowest position, call light within reach.
[2018-09-03] MEDS: Morphine Sulfate 2mg/ml Inj(IV/IM USE ONLY) IVP PRN (19:58)
[2018-09-03 20:00] VITALS: BP 118/49
[2018-09-03] MEDS ORDERED: Atorvastatin 80mg tab ORAL SCH (21:00)
[2018-09-03] MEDS ORDERED: Tamsulosin 0.4mg cap ORAL SCH (21:00)
--- NOTE | 2018-09-03 21:30 | History and Physical Report ---
DATE OF ADMISSION: 09/03/2018 REASON FOR ADMISSION: 1. Hyponatremia. 2. Melena. HISTORY OF PRESENT ILLNESS: The patient is a pleasant 88-year-old gentleman, who presented to the emergency room for further evaluation and care of three days of melena. The patient does have a known renal mass and a chronic indwelling Baltazar catheter, which does have some hematuria. He also has underlying hypertension and sacral decubitus ulcers. The patient's main concern was change in dark-colored stool with mild red tinged in his stool. PAST MEDICAL HISTORY: 1. Renal mass. 2. Chronic Baltazar. 3. Hyponatremia. 4. Hypertension. 5. Sacral decubitus. 6. Diabetes mellitus. 7. Hyperlipidemia. 8. BPH. PAST SURGICAL HISTORY: Noncontributory. ALLERGIES: No known drug allergies. FAMILY HISTORY: Positive for hypertension and diabetes. REVIEW OF SYSTEMS: NEUROLOGIC: No headache, change in vision, syncope, or presyncopal episodes. CARDIOVASCULAR: No current chest pain, palpitations, or angina. PULMONARY: No difficulty breathing, productive cough, or sputum. GASTROINTESTINAL/GENITOURINARY: The patient was having changes in dark-colored stools with some red tinge. No nausea or vomiting. No diarrhea. ENDOCRINOLOGY: No night sweats, fevers, or chills. MUSCULOSKELETAL: The patient is feeling weak, tired, and fatigued. PHYSICAL EXAMINATION: VITAL SIGNS: Blood pressure 113/56, respiratory rate 16, pulse 72, temperature 98, and 100% oxygen saturation on room air. GENERAL: The patient is awake, alert, and not in distress. HEENT: Extraocular muscles intact. No lymphadenopathy noted. CARDIOVASCULAR: S1, S2. No murmurs, rubs, or gallops. PULMONARY: Clear to auscultation bilaterally. No rales, rhonchi, or wheezes. ABDOMINAL: Nondistended and nontender. EXTREMITIES: No edema noted. LABORATORY DATA: Labs dated 09/03/2018, white cell count 7.5, hemoglobin 10, and platelet count 385,000. Sodium 129 and creatinine 1.1. Troponin 0.014. Glucose 235. Lipase 45. ASSESSMENT AND PLAN: 1. Gastrointestinal bleed with melena. At this time, most likely it could be secondary to gastric ulcer. Gastroenterology has been consulted. Further evaluation and management for possible EGD. Hemoglobin currently stable. 2. Hyponatremia, chronic. Sodium 129. We will continue isotonic solution. 3. Hypertension, stable. We will continue home medications. 4. Diabetes mellitus. We will initiate D5 normal saline and his home anti-hyperglycemic medications as the patient is NPO awaiting possible GI procedure. 5. DVT prophylaxis with SCDs. 6. GI prophylaxis with Protonix. Rubén Victoria MD DR: SATISH JOB#: [id number] CC:
[2018-09-04] VITALS: BP 110/48
--- NOTE | 2018-09-04 01:10 | NUR ---
NURSE NOTES: Pt currently asleep at bedside with no acute s/s of distress noted. On Low air loss mattress. IV site asymptomatic and patent running to D5NS @ 50 ml/hr. Bed in lowest position, bed alarm on. call light and belongings within reach. bus monitor on - Sinus Bradycardia (58).
[2018-09-04] MEDS: Morphine Sulfate 2mg/ml Inj(IV/IM USE ONLY) IVP PRN ×5 (03:58→21:30)
[2018-09-04 04:00] VITALS: BP 116/58
[2018-09-04 06:08] LABS: EOSINOPHILS % (AUTO) 2.1 % (0.0-3.0); HEMATOCRIT 31.3 % (42.0-52.0); HEMOGLOBIN 9.8 G/DL (14.2-18.0); LYMPHOCYTES % (AUTO) 21.3 % (20.0-45.0); MEAN CORPUSCULAR VOLUME 87 FL (80-99); NEUTROPHILS % (AUTO) 66.6 % (45.0-75.0); PLATELET COUNT 335 K/UL (150-450); RED CELL DISTRIBUTION WIDTH 27.5 % (11.6-14.8); WHITE BLOOD COUNT 6.4 K/UL (4.8-10.8)
[2018-09-04] MEDS: NovoLOG Insulin Flexpen SUBQ SCH ×4 (06:12→21:16)
[2018-09-04] MEDS: metFORMIN 500mg tab ORAL SCH ×3 (06:12→17:20)
[2018-09-04 06:21] LABS: ANION GAP 9 mmol/L (5-15); BLOOD UREA NITROGEN 10 mg/dL (7-18); CALCIUM 8.7 MG/DL (8.5-10.1); CARBON DIOXIDE 20 MMOL/L (21-32); CHLORIDE 107 MMOL/L (98-107); CREATININE 0.9 MG/DL (0.55-1.30); POTASSIUM 3.2 MMOL/L (3.5-5.1); SODIUM 136 MMOL/L (136-145)
[2018-09-04] MEDS: D5NS 1,000 ML IV SCH ×2 (06:35→19:30)
--- NOTE | 2018-09-04 07:10 | NUR ---
NURSE NOTES: Pt received from Stuart RN alert and oriented x4, primarily Bulgarian-speaking with no acute s/s of distress noted at bedside. Patient on manufacturing machine operator. Patient breathing even and unlabored. Baltazar catheter patent and draining. Noted hematuria. Patient on specialty mattress. Patient on fall precautions with bed alarm on, bed locked, bed in lowest position, side rails x3 up, and call light within reach. Will follow up with plan of care.
--- NOTE | 2018-09-04 07:29 | NUR ---
HAND-OFF: Report given to LEVI Baird. No acute s/s of distress noted.
[2018-09-04 08:00] VITALS: BP 117/58
--- NOTE | 2018-09-04 08:08 | NUR ---
CASE MANAGEMENT:REVIEW 88 YR OLD MALE BIBA FROM HOME CC: TARRY STOOLS X3 DAYS. VOMITING SI: LGIB. HEMATURIA 97.5 90 18 107/67 96% ON RA H/H-10.0/31.4 K-3.2 IS:1L NS BOLUS IV PROTONIX PROTONIX GTT STOOL FOR OCCULT BLOOD TYPE & SCREEN CHEST XRAY NPO : TO TELEMETRY DCP: FROM HOME PLAN: GI CONSULT PENDING ~ H/H DROPPED TO 9.8/31.3
[2018-09-04] MEDS ORDERED: Fleet's Enema 133ml RECTAL SCH ×2 (08:30→10:30)
[2018-09-04] MEDS ORDERED: Benazepril 10mg tab ORAL SCH (09:00)
[2018-09-04] MEDS ORDERED: Metoprolol Succinate XL 50mg tab ORAL SCH (09:00)
--- NOTE | 2018-09-04 09:54 | Nephrology Progress Note ---
Assessment/Plan Assessment/Plan: 1. Gastrointestinal bleed with melena/rectal pain. At this time, most likely it could be secondary to gastric ulcer. - await GI evaluation 2. Hyponatremia, chronic. Resolved 3. Hypertension, stable. We will continue home medications. 4. Diabetes mellitus. We will initiate D5 normal saline and his home anti-hyperglycemic medications as the patient is NPO awaiting possible GI procedure. -po diet once cleared by GI 5. DVT prophylaxis with SCDs. 6. GI prophylaxis with Protonix. 7. Hematuria- known renal mass. Monitor for now. slowly improving Subjective Date patient seen: Sep 04, 2018 Time patient seen: 09:52 ROS Limited/Unobtainable: No Allergies: Coded Allergies: No Known Allergies (Unverified , 05/28/12) Subjective Patient c/o rectal pain Objective Last 24 Hour Vital Signs Date Time Temp Pulse Resp B/P (MAP) Pulse Ox O2 Delivery O2 Flow Rate FiO2 09/04/18 08:17 85 117/58 09/04/18 08:16 85 117/58 09/04/18 08:00 98.6 85 20 117/58 (77) 97 09/04/18 04:00 71 09/04/18 04:00 98.8 79 18 116/58 (77) 97 09/04/18 00:00 98.0 60 18 110/48 (68) 97 09/04/18 00:00 58 09/03/18 21:00 Room Air 09/03/18 20:00 61 09/03/18 20:00 97.9 61 18 118/49 (72) 97 09/03/18 16:00 58 09/03/18 16:00 98.1 63 18 116/55 (75) 97 09/03/18 15:52 Room Air 09/03/18 14:55 65 09/03/18 14:27 98.0 72 16 113/56 100 Room Air 09/03/18 13:53 98.0 72 16 113/56 100 Room Air 09/03/18 12:30 98.0 84 17 135/60 100 Room Air 09/03/18 11:23 86 15 Room Air 09/03/18 11:23 97.5 76 15 124/56 99 Room Air 09/03/18 11:10 97.5 90 18 107/67 (80) 96 Room Air Intake and Output 09/03/18 09/04/18 18:59 06:59 Intake Total 1230 ml Output Total 500 ml 800 ml Balance 730 ml -800 ml Intake IV Total 1225 ml Other 5 ml Output Urine Total 500 ml 800 ml # Voids 1 # Bowel Movements 1 1 Laboratory Tests 09/03/18 11:30: White Blood Count 7.5, Red Blood Count 3.69L, Hemoglobin 10.0L, Hematocrit 31.4L , Mean Corpuscular Volume 85, Mean Corpuscular Hemoglobin 27.1, Mean Corpuscular Hemoglobin Concent 31.8L, Red Cell Distribution Width 27.4H, Platelet Count 385, Mean Platelet Volume 5.4L, Neutrophils (%) (Auto) 74.2, Lymphocytes (%) (Auto) 15.1L, Monocytes (%) (Auto) 8.9, Eosinophils (%) (Auto) 1.0, Basophils (%) (Auto) 0.8, Prothrombin Time 10.4, Prothromb Time International Ratio 1.0, Activated Partial Thromboplast Time 24, Urine Color Red , Urine Appearance Turbid, Urine pH 8, Urine Specific [place] 1.010, Urine Protein 2+H, Urine Glucose (UA) 1+H, Urine Ketones 1+H, Urine Blood 5+H, Urine Nitrite Negative, Urine Bilirubin Negative, Urine Urobilinogen Normal, Urine Leukocyte Esterase 3+H, Urine RBC TntcH, Urine WBC 2-4, Urine Squamous Epithelial Cells Occasional, Urine Bacteria Few, Sodium Level 129L, Potassium Level 3.6, Chloride Level 99, Carbon Dioxide Level 21, Anion Gap 9, Blood Urea Nitrogen 18, Creatinine 1.1, Estimat Glomerular Filtration Rate , Glucose Level 235H, Calcium Level 8.9, Total Bilirubin 0.5, Aspartate Amino Transf (AST/SGOT) 33, Alanine Aminotransferase (ALT/SGPT) 19, Alkaline Phosphatase 94, Troponin I 0.014, Total Protein 6.0L, Albumin 2.5L, Globulin 3.5, Albumin/Globulin Ratio 0.7L, Lipase 45L 09/04/18 05:45: White Blood Count 6.4, Red Blood Count 3.60L, Hemoglobin 9.8L, Hematocrit 31.3L , Mean Corpuscular Volume 87, Mean Corpuscular Hemoglobin 27.3, Mean Corpuscular Hemoglobin Concent 31.4L, Red Cell Distribution Width 27.5H, Platelet Count 335, Mean Platelet Volume 5.0L, Neutrophils (%) (Auto) 66.6, Lymphocytes (%) (Auto) 21.3, Monocytes (%) (Auto) 9.0, Eosinophils (%) (Auto) 2.1, Basophils (%) (Auto) 1.0, Sodium Level 136, Potassium Level 3.2L, Chloride Level 107, Carbon Dioxide Level 20L, Anion Gap 9, Blood Urea Nitrogen 10, Creatinine 0.9, Estimat Glomerular Filtration Rate , Glucose Level 154H, Calcium Level 8.7 09/04/18 08:23: Stool Occult Blood [Pending] Height (Feet): 5 Height (Inches): 9.00 Weight (Pounds): 135 General Appearance: no apparent distress EENT: normal ENT inspection Neck: normal alignment, supple Cardiovascular: normal rate, regular rhythm Respiratory/Chest: lungs clear, normal breath sounds Abdomen: non tender Edema: no edema noted Arm (L), no edema noted Arm (R), no edema noted Leg (L), no edema noted Leg (R), no edema noted Pedal (L), no edema noted Pedal (R), no edema noted Generalized Rubén Victoria MD Sep 04, 2018 09:54
--- NOTE | 2018-09-04 10:41 | NUR ---
*-* NO INSURANCE INFORMATION IN THE BAR UNABLE TO SEND CLINICALS *-*
[2018-09-04 12:00] VITALS: BP 113/59
--- NOTE | 2018-09-04 12:30 | NUR ---
HAND-OFF: Report given to LEVI Luis. Patient has been transfer to [facility]. Endorsed about 2/2 of potassium 10 meq hanging and D5NS @ 50ml/hr. Patient is AAO X 4. Patient is breathing even and unlabored on room air. cardiac monitor was removed and returned to [facility]. Belonging checklist was signed. Son at bedside. Patient states mild pain in rectal area. Went over skin care of b/l heels stage 2 and dti on sacral. Patient has SCDS in place. Patient is on specialty mattress.
--- NOTE | 2018-09-04 13:50 | NUR ---
NURSE NOTES: PATIENT HANDOFF RECEIVED FROM LEVI SHIELDS FROM .
--- NOTE | 2018-09-04 14:03 | NUR ---
RD ASSESSMENT & RECOMMENDATIONS SEE CARE ACTIVITY FOR COMPLETE ASSESSMENT DAILY ESTIMATED NEEDS: Needs based on Wound, underweight 43kg 30-40 kcals/kg 1478-8199 total kcals 1.25-1.5 g protein/kg 54-65 g total protein 25-35ml/kcal mL/kg 7310-8902 total fluid mLs NUTRITION DIAGNOSIS: Increased kcal and pro needs r/t underweight status and wound healing as evidenced by pt est 77% of [place] Body weight w/ generalized moderate to severe wasting with BL heels stage 2 and sacral DTI. CURRENT DIET: Now CLD PO DIET RECOMMENDATIONS: PER GI-> CLD at this time, rec to add ENSURE CLEAR TID ADDITIONAL RECOMMENDATIONS: 1) Obtain a standing weight OR calibrated bed scale wt 2) Wound care: SHIRA BID + Vit C 250mg daily 3) Advance diet as able to Liberalized Regular- monitor po intake 3) Add Glucerna 1 tetra dustin TID w/ meals 4) FINISH OPENER eval for appropriate texture 5) Check lytes, replete as needed (Low K 3.2)
[2018-09-04 16:00] VITALS: BP 114/56
--- NOTE | 2018-09-04 19:44 | NUR ---
HAND-OFF: Report given to LEVI Arredondo.
[2018-09-04 20:00] VITALS: BP 108/51
--- NOTE | 2018-09-04 20:00 | NUR ---
NURSE NOTES: RECEIVED PT FROM LEVI NAIR. PT IS AWAKE,AAO X4, ON ROOM AIR, C/O 9/10 OF RECTUM AND LOWER BODY PAIN. SCDS NOTED ON BILATERAL LEGS. NELSON IS INTACT, PATENT, DRAINING WELL. HEMATURIA NOTED, MD AWARE. OPTIFOAM NOTED ON SACRAL, BILATERAL HEELS, BILATERAL TROCHANTERS. IV ON R FA IS INTACT AND PATENT, RUNNING D5NS AT 50 ML/HR. BED IS LOCKED AT THE LOWEST POSITION. BED ALARMS ACTIVE. SIDE RAILS UP X2. CALL LIGHT IS WITHIN REACH. WILL CONTINUE TO MONITOR.
[2018-09-04] MEDS: Atorvastatin 80mg tab ORAL SCH (20:29)
[2018-09-04] MEDS: Tamsulosin 0.4mg cap ORAL SCH (20:30)
[2018-09-04] MEDS ORDERED: Magnesium Citrate Liq Btl ORAL ONE (20:45)
--- NOTE | 2018-09-04 20:45 | General Progress Note ---
Assessment/Plan Assessment/Plan: GI CONSULT Assessment - ER history of "dark stools" noted, but patient OB (-) in ER and again on the floor - Rectal stool impaction on exam, stools brown on visual inspection - Renal mass - chronic yung - functional decline - decub ulcer Recommendation - laxative, enemas - monitor lytes - hydration - po diet - H2 Evette or PPI - No plans for EGD at this time - OK for antiplatelet Rx Thank you Shannan Dash MD Subjective Allergies: Coded Allergies: No Known Allergies (Unverified , 05/28/12) Objective Last 24 Hour Vital Signs Date Time Temp Pulse Resp B/P (MAP) Pulse Ox O2 Delivery O2 Flow Rate FiO2 09/04/18 17:46 98.6 09/04/18 16:00 97.6 70 17 114/56 (75) 95 09/04/18 12:00 97.9 67 20 113/59 (77) 97 09/04/18 10:36 117/58 09/04/18 09:00 Room Air 09/04/18 08:48 98.6 09/04/18 08:17 85 117/58 09/04/18 08:16 85 117/58 09/04/18 08:00 98.6 85 20 117/58 (77) 97 09/04/18 07:56 89 09/04/18 04:00 71 09/04/18 04:00 98.8 79 18 116/58 (77) 97 09/04/18 00:00 98.0 60 18 110/48 (68) 97 09/04/18 00:00 58 09/03/18 21:00 Room Air Intake and Output 09/03/18 09/04/18 19:00 07:00 Intake Total 1230 ml Output Total 500 ml 800 ml Balance 730 ml -800 ml IV Total 1225 ml Other 5 ml Output Urine Total 500 ml 800 ml # Voids 1 # Bowel Movements 1 1 Laboratory Tests 09/04/18 05:45: White Blood Count 6.4, Red Blood Count 3.60L, Hemoglobin 9.8L, Hematocrit 31.3L , Mean Corpuscular Volume 87, Mean Corpuscular Hemoglobin 27.3, Mean Corpuscular Hemoglobin Concent 31.4L, Red Cell Distribution Width 27.5H, Platelet Count 335, Mean Platelet Volume 5.0L, Neutrophils (%) (Auto) 66.6, Lymphocytes (%) (Auto) 21.3, Monocytes (%) (Auto) 9.0, Eosinophils (%) (Auto) 2.1, Basophils (%) (Auto) 1.0, Sodium Level 136, Potassium Level 3.2L, Chloride Level 107, Carbon Dioxide Level 20L, Anion Gap 9, Blood Urea Nitrogen 10, Creatinine 0.9, Estimat Glomerular Filtration Rate , Glucose Level 154H, Calcium Level 8.7 09/04/18 08:23: Stool Occult Blood Negative Height (Feet): 5 Height (Inches): 9.00 Weight (Pounds): 135 Shannan Dash MD Sep 04, 2018 20:45
--- NOTE | 2018-09-04 22:30 | NUR ---
NURSE NOTES: D/C RIGHT FA 20G PER LEAKING. NEW IV INSERTED ON RIGHT HAND 24G, INTACT AND PATENT.
--- NOTE | 2018-09-04 22:45 | Consultation ---
DATE OF CONSULTATION: 09/04/2018 GASTROENTEROLOGY CONSULTATION CONSULTING PHYSICIAN: Shannan Dash M.D. REFERRING PHYSICIAN: Rubén Victoria M.D. CHIEF COMPLAINT: I was asked to see this patient by Dr. Rubén Victoria for evaluation of dark stools. HISTORY OF PRESENT ILLNESS: The patient is a debilitated 88-year-old man, who was brought in by family due to reported dark stools. The patient himself is somewhat of a poor historian and most of information is only available from the chart. 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 In the emergency room, he was examined by the emergency room and the chart notes reflect a heme-negative stool on rectal examination. The patient denies any abdominal pain, nausea, vomiting. PAST MEDICAL HISTORY: History of renal mass, chronic Baltazar, hyponatremia, hypertension, sacral decubitus ulceration, diabetes mellitus, benign prostatic hypertrophy. PAST SURGICAL HISTORY: Noncontributory. FAMILY HISTORY: Positive for hypertension and diabetes. SOCIAL HISTORY: The patient does not smoke or drink. REVIEW OF SYSTEMS: Otherwise negative. PHYSICAL EXAMINATION: GENERAL: Pleasant, thin, man, seen in his room. HEENT: Normocephalic and atraumatic. Sclerae anicteric. Oropharynx clear. NECK: Supple. CHEST: Clear to auscultation. CARDIOVASCULAR: Revealed a regular rate. ABDOMEN: Soft. Good bowel sounds. EXTREMITIES: Revealed no edema. A Baltazar catheter was in place. RECTAL: Revealed rectal stool impaction with brown stools, which was sent to laboratory and again this was heme-negative. ASSESSMENT: This patient presents with reported dark stools from home, but here in the hospital, they have been heme-negative both in the emergency room and also again by me today. I suspect that the color maybe due to ingested material and not gastrointestinal bleeding. As such, the patient can be monitored conservatively. I will advance his diet. Place him on prophylactic histamine 2 zack. Monitor his blood counts. He can be restarted on his anti-platelet agents. RECOMMENDATIONS: Per above discussion and per orders written in the chart. Thank you for asking me to participate in the care of this patient. Shannan Dash M.D. DR: NAY JOB#: [id number] CC: SUSY
--- NOTE | 2018-09-04 23:01 | NUR ---
NURSE NOTES: PT HAD 2 MODERATE LOOSE STOOL, BROWN COLOR, NO BLOOD NOTED IN STOOL. NOTIFIED DR. ANDERSON.
[2018-09-05] VITALS: BP 108/54
[2018-09-05] MEDS: Morphine Sulfate 2mg/ml Inj(IV/IM USE ONLY) IVP PRN ×5 (01:42→23:17)
[2018-09-05 04:00] VITALS: BP 123/53
[2018-09-05] MEDS: metFORMIN 500mg tab ORAL SCH ×3 (06:04→16:06)
[2018-09-05] MEDS: NovoLOG Insulin Flexpen SUBQ SCH ×4 (06:06→21:15)
[2018-09-05 06:24] LABS: BLOOD UREA NITROGEN 7 mg/dL (7-18); CALCIUM 7.9 MG/DL (8.5-10.1); CARBON DIOXIDE 20 MMOL/L (21-32); CREATININE 0.8 MG/DL (0.55-1.30)
[2018-09-05 06:46] LABS: CHLORIDE 107 MMOL/L (98-107); SODIUM 137 MMOL/L (136-145)
[2018-09-05 06:52] LABS: POTASSIUM 2.6 MMOL/L (3.5-5.1)
--- NOTE | 2018-09-05 07:46 | NUR ---
HAND-OFF: Report given to LEVI GARCIA.
[2018-09-05 08:00] VITALS: BP 108/50
[2018-09-05] MEDS: Benazepril 10mg tab ORAL SCH (09:00)
[2018-09-05] MEDS: Metoprolol Succinate XL 50mg tab ORAL SCH (09:00)
[2018-09-05] MEDS: D5NS 1,000 ML IV SCH ×2 (09:00→16:37)
[2018-09-05] MEDS: Aspirin Baby 81mg ORAL SCH (09:34)
[2018-09-05] MEDS ORDERED: D5NS 1000ml IV ONE (09:53)
[2018-09-05] MEDS ORDERED: Tubing IV Secondary IV ONE (09:53)
[2018-09-05 12:00] VITALS: BP 109/57
--- NOTE | 2018-09-05 14:42 | General Progress Note ---
Assessment/Plan Problem List: (1) GI bleeding ICD Codes: K92.2 - Gastrointestinal hemorrhage, unspecified SNOMED: 04213998 (2) Hematuria, gross ICD Codes: R31.0 - Gross hematuria SNOMED: 357817222 (3) HTN (hypertension) ICD Codes: I10 - Essential (primary) hypertension SNOMED: 46455495 (4) Decubitus skin ulcer ICD Codes: L89.90 - Pressure ulcer of unspecified site, unspecified stage SNOMED: 375599018 (5) Iron deficiency anemia ICD Codes: D50.9 - Iron deficiency anemia, unspecified SNOMED: 63342827 (6) Urinary retention ICD Codes: R33.9 - Retention of urine, unspecified SNOMED: 501219300 (7) Hypokalemia ICD Codes: E87.6 - Hypokalemia SNOMED: 85975211 Assessment/Plan: Replete K follow labs Discussed with pt and will talk to GI Subjective Allergies: Coded Allergies: No Known Allergies (Unverified , 05/28/12) Subjective feels ok Objective Last 24 Hour Vital Signs Date Time Temp Pulse Resp B/P (MAP) Pulse Ox O2 Delivery O2 Flow Rate FiO2 09/05/18 10:56 97.9 09/05/18 09:00 Room Air 09/05/18 09:00 88 108/50 09/05/18 09:00 108/50 09/05/18 09:00 88 108/50 09/05/18 08:00 97.9 88 19 108/50 (69) 96 88 09/05/18 04:00 97.7 86 18 123/53 (76) 97 86 09/05/18 00:00 97.6 74 18 108/54 (72) 96 74 09/04/18 21:00 Room Air 09/04/18 20:00 97.5 74 18 108/51 (70) 97 74 09/04/18 16:00 97.6 70 17 114/56 (75) 95 Intake and Output 09/04/18 09/05/18 19:00 07:00 Intake Total 360 ml 550 ml Output Total 750 ml Balance -390 ml 550 ml Intake Oral 360 ml IV Total 550 ml Output Urine Total 750 ml # Bowel Movements 2 4 Laboratory Tests 09/05/18 05:00: Sodium Level 137, Potassium Level 2.6*L, Chloride Level 107, Carbon Dioxide Level 20L, Blood Urea Nitrogen 7, Creatinine 0.8, Estimat Glomerular Filtration Rate , Glucose Level 124H, Calcium Level 7.9L Height (Feet): 5 Height (Inches): 9.00 Weight (Pounds): 135 Cardiovascular: normal rate Respiratory/Chest: lungs clear Abdomen: soft Edema: no edema noted Generalized Zac Alejo MD Sep 05, 2018 14:42
--- NOTE | 2018-09-05 15:05 | NUR ---
NURSE NOTES: nurse had to put additional order of KCl 10mEq IVPB as it fell of Pysis, will give only total of 4 bags as ordered by dr. Victoria.
--- NOTE | 2018-09-05 15:29 | NUR ---
CASE MANAGEMENT: REVIEW 09/05/2018 SI: LOWER GIB. HEMATURIA. T 98.2 HR 88 RR 19 B/P 109/57 SATS 97% ON RA K 2.6 CO2 20 GLU 124 CA 7.9 IS:IVF @ 50 mL/HR LIPITOR PO QHS FLOMAX PO QHS NORVASC PO QD LOTENSIN PO QD PLAVIX PO QD PROTONIX PO QD ASA PO QD INSULIN ASPART SUBQ AC/HS K DUR PO X1 METFORMIN PO TIAC GABAPENTIN PO TID : TO MED/SURG STATUS DCP: FROM HOME
[2018-09-05 16:00] VITALS: BP 122/95
--- NOTE | 2018-09-05 17:07 | General Progress Note ---
Assessment/Plan Assessment/Plan: Assessment - ER history of "dark stools" noted, but patient OB (-) in ER and again on the floor - Rectal stool impaction- now having BM - low K - Renal mass - chronic yung - functional decline - decub ulcer Recommendation - replace lytes - hydration - po diet - H2 Evette or PPI - No plans for EGD at this time - OK for antiplatelet Rx Subjective Allergies: Coded Allergies: No Known Allergies (Unverified , 05/28/12) Subjective (+) BM no melena Objective Last 24 Hour Vital Signs Date Time Temp Pulse Resp B/P (MAP) Pulse Ox O2 Delivery O2 Flow Rate FiO2 09/05/18 12:00 98.2 88 19 109/57 (74) 97 88 09/05/18 10:56 97.9 09/05/18 09:00 Room Air 09/05/18 09:00 88 108/50 09/05/18 09:00 108/50 09/05/18 09:00 88 108/50 09/05/18 08:00 97.9 88 19 108/50 (69) 96 88 09/05/18 04:00 97.7 86 18 123/53 (76) 97 86 09/05/18 00:00 97.6 74 18 108/54 (72) 96 74 09/04/18 21:00 Room Air 09/04/18 20:00 97.5 74 18 108/51 (70) 97 74 Intake and Output 09/04/18 09/05/18 19:00 07:00 Intake Total 360 ml 550 ml Output Total 750 ml Balance -390 ml 550 ml Intake Oral 360 ml IV Total 550 ml Output Urine Total 750 ml # Bowel Movements 2 4 Laboratory Tests 09/05/18 05:00: Sodium Level 137, Potassium Level 2.6*L, Chloride Level 107, Carbon Dioxide Level 20L, Blood Urea Nitrogen 7, Creatinine 0.8, Estimat Glomerular Filtration Rate , Glucose Level 124H, Calcium Level 7.9L Height (Feet): 5 Height (Inches): 9.00 Weight (Pounds): 135 Objective WDWN NCAT supple CTA RRR abd soft NT ND no edema Shannan Dash MD Sep 05, 2018 17:07
--- NOTE | 2018-09-05 19:51 | NUR ---
HAND-OFF: Report given to LEVI Powell.
[2018-09-05 20:00] VITALS: BP 120/64
--- NOTE | 2018-09-05 20:04 | NUR ---
NURSE NOTES: Received report from LEVI Gonzalez. Patient laying on the bed, awake, alert, and verbally responsive to let his needs known. Speaks Serbian. Breathing unlabored and evenly without signs of distress, discomfort, or SOB. Denies pain at this time. Baltazar noted draining yellow urine. IV on right hand noted running fluid as ordered. Bed placed at the lowest with brakes, alarms, and side rails up x3 for safety. Patient has call light in his hand, re-emphasized to press call light whenever he needs assistance. Will continue to monitor and provide care ordered.
[2018-09-05] MEDS: Atorvastatin 80mg tab ORAL SCH (20:26)
[2018-09-05] MEDS: Tamsulosin 0.4mg cap ORAL SCH (20:26)
--- NOTE | 2018-09-05 21:48 | Consultation ---
History of Present Illness General Date patient seen: Sep 05, 2018 Reason for Hospitalization: General Complaint Present Illness HPI 88 year old male with multiple medical comorbidities presented with dark stools. On admission noted to have multiple decubitus requiring care and management. Surgery called to evaluate and assist with care. patient seen, chart reviewed, patient examined. states he is well but had incontinence during interview. poor historian Allergies: Coded Allergies: No Known Allergies (Unverified , 05/28/12) Medication History Scheduled Amlodipine Besylate* (Amlodipine Besylate*), 5 MG ORAL DAILY, (Reported) Aspirin* (Aspir-Low*), 81 MG PO DAILY, (Reported) Atorvastatin (Lipitor), 80 MG ORAL DAILY, (Reported) Benazepril Hcl* (Benazepril Hcl*), 5 MG ORAL DAILY, (Reported) Clopidogrel Bisulfate* (Plavix*), 75 MG ORAL DAILY, (Reported) Demeclocycline HCl (Demeclocycline HCl), 300 MG ORAL BID, (Reported) Demeclocycline HCl (Demeclocycline HCl), 600 MG ORAL Q12HR Gabapentin* (Gabapentin*), 300 MG ORAL THREE TIMES A DAY, (Reported) Glipizide/Metformin Hcl (Glipizide-Metformin 5-500 Mg), 1 EACH PO DAILY, ( Reported) Latanoprost* (Xalatan*), Unknown Dose BOTH EYES BEDTIME, (Reported) Metoprolol Succinate* (Metoprolol Succinate*), 50 MG ORAL DAILY, (Reported) Omeprazole (Omeprazole), 40 MG ORAL DAILY, (Reported) Pantoprazole* (Pantoprazole*), Unknown Dose ORAL DAILY, (Reported) Simvastatin (Zocor), 10 MG ORAL BEDTIME, (Reported) Tamsulosin HCl (Flomax), 0.4 MG ORAL BEDTIME Vitamin E* (Vitamin E*), Unknown Dose PO DAILY, (Reported) Scheduled PRN Ondansetron* (Zofran*), 4 MG ORAL Q6H PRN for Nausea & Vomiting, (Reported) Tramadol Hcl* (Ultram*), 50 MG ORAL Q6H PRN for For Pain, (Reported) Miscellaneous Medications Calcium Carbonate (Calcium), Unknown Dose PO, (Reported) Timolol Maleate/Pf (Timoptic 0.5% Ocudose Drop), Unknown Dose OP, (Reported) [Hydrocortisone 2.5% ], 2.5 % TOPIC, (Reported) Patient History Limited by: medical condition History Provided By: Medical Record, PMD Healthcare decision maker Resuscitation status Advanced Directive on File Past Medical/Surgical History Past Medical/Surgical History: (1) Hematuria, gross (2) History of melena (3) Hypokalemia (4) Urinary retention (5) Decubitus skin ulcer (6) GI bleeding (7) Iron deficiency anemia (8) HTN (hypertension) Review of Systems Review of Symptoms General ROS: no weight loss or fever Psychological ROS: no depression or mood changes, no memory loss Ophthalmic ROS: no visual changes or eye irritation ENT ROS: no nasal congestion, hearing loss, dizziness Allergy and Immunology ROS: no allergic symptoms or urticaria Hematological and Lymphatic ROS: no swollen glands, unusual bleeding or bruising Endocrine ROS: no polyuria, polydipsia, weight changes, temperature intolerance Respiratory ROS: no cough, shortness of breath, or wheezing Cardiovascular ROS: no chest pain or dyspnea on exertion Gastrointestinal ROS: denies abdominal pain, bright red blood in stool. Musculoskeletal ROS: no myalgias or arthralgias Neurological ROS: no TIA or stroke symptoms Dermatological ROS: no new or changing skin lesions, rashes or pruritis Physical Exam Physical Exam General appearance: alert, cooperative, no distress, appears stated age Head: Normocephalic, without obvious abnormality, atraumatic Eyes: conjunctivae/corneas clear. PERRL, EOM's intact. Fundi benign Throat: Lips, mucosa, and tongue normal. Teeth and gums normal Neck: supple, symmetrical, trachea midline, no adenopathy, thyroid: not enlarged, symmetric, no tenderness/mass/nodules, no carotid bruit and no JVD Lungs: clear to auscultation bilaterally Heart: regular rate and rhythm, S1, S2 normal, no murmur, click, rub or gallop Abdomen: soft, non-tender. Bowel sounds normal. No masses, no organomegaly Extremities: extremities normal, atraumatic, no cyanosis or edema Pulses: 2+ and symmetric Skin: Skin color, texture, turgor normal. No rashes or lesions Neurologic: Grossly normal Last 24 Hour Vital Signs Date Time Temp Pulse Resp B/P (MAP) Pulse Ox O2 Delivery O2 Flow Rate FiO2 09/05/18 18:58 98.2 09/05/18 16:00 98.2 79 18 122/95 (104) 99 79 09/05/18 12:00 98.2 88 19 109/57 (74) 97 88 09/05/18 09:00 Room Air 09/05/18 09:00 88 108/50 09/05/18 09:00 108/50 09/05/18 09:00 88 108/50 09/05/18 08:00 97.9 88 19 108/50 (69) 96 88 09/05/18 04:00 97.7 86 18 123/53 (76) 97 86 09/05/18 00:00 97.6 74 18 108/54 (72) 96 74 Intake and Output 09/04/18 09/05/18 19:00 07:00 Intake Total 360 ml 550 ml Output Total 750 ml Balance -390 ml 550 ml Intake Oral 360 ml IV Total 550 ml Output Urine Total 750 ml # Bowel Movements 2 4 Laboratory Tests Test 09/05/18 05:00 Sodium Level 137 MMOL/L (136-145) Potassium Level 2.6 MMOL/L (3.5-5.1) *L Chloride Level 107 MMOL/L (98-107) Carbon Dioxide Level 20 MMOL/L (21-32) L Blood Urea Nitrogen 7 mg/dL (7-18) Creatinine 0.8 MG/DL (0.55-1.30) Estimat Glomerular Filtration Rate mL/min (>60) Glucose Level 124 MG/DL (74-106) H Calcium Level 7.9 MG/DL (8.5-10.1) L Height (Feet): 5 Height (Inches): 9.00 Weight (Pounds): 135 Medications Current Medications Medications (Trade) Dose Ordered Sig/Deb Route PRN Reason Start Time Stop Time Status Last Admin Dose Admin Acetaminophen (Tylenol) 650 mg Q4H PRN ORAL Mild Pain (Pain Scale 1-3) 09/04/18 14:15 10/03/18 14:14 09/05/18 02:51 Amlodipine Besylate (Norvasc) 5 mg DAILY ORAL 09/05/18 09:00 10/04/18 08:59 Aspirin (ASA) 81 mg DAILY ORAL 09/05/18 09:00 10/05/18 08:59 09/05/18 09:34 Atorvastatin Calcium (Lipitor) 80 mg BEDTIME ORAL 09/04/18 21:00 10/03/18 20:59 09/05/18 20:26 Benazepril HCl (Lotensin) 5 mg DAILY ORAL 09/05/18 09:00 10/04/18 08:59 Clopidogrel Bisulfate (Plavix) 75 mg DAILY ORAL 09/05/18 09:00 10/04/18 08:59 09/05/18 09:34 Dextrose (Dextrose 50%) 25 ml Q30M PRN IV Hypoglycemia 09/04/18 13:15 10/03/18 14:14 Dextrose (Dextrose 50%) 50 ml Q30M PRN IV Hypoglycemia 09/04/18 13:15 10/03/18 14:14 Dextrose/Sodium Chloride 1,000 ml @ 50 mls/hr Q20H IV 09/04/18 13:00 10/03/18 15:04 09/05/18 16:37 Gabapentin (Neurontin) 300 mg THREE TIMES A DAY ORAL 09/04/18 13:00 10/03/18 17:59 09/05/18 17:45 Insulin Aspart (NovoLOG) BEFORE MEALS AND HS SUBQ 09/04/18 16:30 10/03/18 16:29 09/05/18 21:15 Metformin HCl (Glucophage) 500 mg TIAC ORAL 09/04/18 16:30 10/03/18 16:29 09/05/18 16:06 Metoprolol Succinate (Toprol XL) 50 mg DAILY ORAL 09/05/18 09:00 10/04/18 08:59 Morphine Sulfate (Morphine Sulfate) 1 mg Q4H PRN IVP For Pain 09/04/18 15:45 09/10/18 19:44 09/05/18 18:28 Ondansetron HCl (Zofran) 4 mg Q6H PRN IVP Nausea & Vomiting 09/04/18 14:15 10/03/18 14:14 Pantoprazole (Protonix) 40 mg DAILY ORAL 09/05/18 09:00 10/04/18 08:59 09/05/18 09:34 Tamsulosin HCl (Flomax) 0.4 mg BEDTIME ORAL 09/04/18 21:00 10/03/18 20:59 09/05/18 20:26 Assessment/Plan Problem List: (1) Decubitus skin ulcer Assessment & Plan: Pt presented on admission with multiple pressure injuries. DTPI noted to Sacrum .Base of wound maroon with fluctuance. dark purple area noted to coccygeal area.(L)8cm x (W)6cm. Pt verbalized tenderness when site minimally palpated. Non-blanching erythema without induration or fluctuance periwound. Scrotal area is red but intact. Non-blanchable erythema without induration or fluctuance R trochanter.(L)4cm x ( W)3.5cm. Tender when minimally palpated. Non-blanching erythema without induration or fluctuance L trochanter.(L)6cm x (W )7cm. Non-tender when palpated. Non-blanchable erythema with fluctuance R heel. Tender when minimally palpated. Non-blanchable erythema with fluctuance L heel. Tender when minimally palpated. Tx.plan: Apply Moisture Barrier paste to Sacrum. Cover with Optifoam drsg. Change very 3 days and prn. Apply Cavilon Skin Barrier to R and L trochanteric areas. Cover each site with Optifoam drsg. Change every 7 days and prn. Apply Moisture Barrier Paste to scrotal area with each incontinence care. Apply Cavilon Skin Barrier to both heels. Cover each heel with Optifoam drsg. Change very 7 days and prn. APM/TIFFANY mattress overlay. Reposition at least every 2hours or as tolerated. Off-load heels with pillow. ICD Codes: L89.90 - Pressure ulcer of unspecified site, unspecified stage SNOMED: 466862613 (2) GI bleeding Assessment & Plan: history of dark stools currently okay h/h stable no active bleeding seen by GI. no plan for EGD currently agree given stable will follow with recs. ICD Codes: K92.2 - Gastrointestinal hemorrhage, unspecified SNOMED: 27431645 Raúl Cardenas Sep 05, 2018 21:48
--- NOTE | 2018-09-05 22:30 | NUR ---
NURSE NOTES: Noted/observed that patient's urine color is orange-"maría" yellow urine with scant amount of sediment or blood clot (cannot tell if it is old clot flowing from the tub or sediment by visual aspect). Patient's hematuria can be seen as resolving at this time but further evaluation/confirmation is needed. Will endorse this information the daytime nurse and to notify the MD.
[2018-09-06] VITALS: BP 123/60
[2018-09-06 04:00] VITALS: BP 111/60
--- NOTE | 2018-09-06 05:12 | NUR ---
NURSE NOTES: Patient refused lab. Attempted multiple times to explain and encourage to allow lab to draw blood, but patient refused.
[2018-09-06] MEDS: metFORMIN 500mg tab ORAL SCH ×3 (06:09→16:59)
[2018-09-06] MEDS: NovoLOG Insulin Flexpen SUBQ SCH ×4 (06:12→20:48)
--- NOTE | 2018-09-06 07:45 | NUR ---
HAND-OFF: Report given to LEVI Luis. Patient in stable condition. Informed RN about patient wanting to go home and improvement in urine color. RN will follow up.
[2018-09-06 08:00] VITALS: BP 125/60
--- NOTE | 2018-09-06 08:04 | NUR ---
NURSE NOTES: HANDOFF RECEIVED FROM ROMAN, RN. PATIENT RECEIVED AWAKE IN BED WITH NO PHYSICAL SIGNS OF DISTRESS. BED IS IN THE LOW AND LOCKED POSITION WITH THE CALL LIGHT WITHIN REACH. IV SITE IS CLEAN DRY AND INTACT.
[2018-09-06] MEDS: Benazepril 10mg tab ORAL SCH (09:37)
[2018-09-06] MEDS: Metoprolol Succinate XL 50mg tab ORAL SCH (09:37)
[2018-09-06] MEDS: Aspirin Baby 81mg ORAL SCH (09:37)
[2018-09-06] MEDS: Morphine Sulfate 2mg/ml Inj(IV/IM USE ONLY) IVP PRN ×2 (09:43→22:43)
[2018-09-06 12:00] VITALS: BP 129/65
--- NOTE | 2018-09-06 12:48 | General Progress Note ---
Assessment/Plan Problem List: (1) GI bleeding ICD Codes: K92.2 - Gastrointestinal hemorrhage, unspecified SNOMED: 61484413 (2) Hematuria, gross ICD Codes: R31.0 - Gross hematuria SNOMED: 753818631 (3) HTN (hypertension) ICD Codes: I10 - Essential (primary) hypertension SNOMED: 37491459 (4) Decubitus skin ulcer ICD Codes: L89.90 - Pressure ulcer of unspecified site, unspecified stage SNOMED: 143518708 (5) Iron deficiency anemia ICD Codes: D50.9 - Iron deficiency anemia, unspecified SNOMED: 05708782 (6) Urinary retention ICD Codes: R33.9 - Retention of urine, unspecified SNOMED: 722779427 (7) Hypokalemia ICD Codes: E87.6 - Hypokalemia SNOMED: 88876314 Assessment/Plan: check labs Discussed with dr Ekta rios Subjective Allergies: Coded Allergies: No Known Allergies (Unverified , 05/28/12) Subjective resting Objective Last 24 Hour Vital Signs Date Time Temp Pulse Resp B/P (MAP) Pulse Ox O2 Delivery O2 Flow Rate FiO2 09/06/18 12:00 97.5 82 14 129/65 (86) 98 09/06/18 09:37 100 125/60 09/06/18 09:37 125/60 09/06/18 09:37 100 125/60 09/06/18 08:00 97.8 100 18 125/60 (81) 97 09/06/18 04:00 98.9 97 18 111/60 (77) 97 09/06/18 00:00 98.3 82 18 123/60 (81) 96 09/05/18 21:00 Room Air 09/05/18 21:00 Room Air 09/05/18 20:00 97.8 83 18 120/64 (82) 97 09/05/18 18:58 98.2 09/05/18 16:00 98.2 79 18 122/95 (104) 99 79 Intake and Output 09/05/18 09/06/18 18:59 06:59 Intake Total 1210 ml 550 ml Output Total 600 ml 1400 ml Balance 610 ml -850 ml Intake Oral 360 ml IV Total 850 ml 550 ml Output Urine Total 600 ml 1400 ml # Bowel Movements 1 2 Height (Feet): 5 Height (Inches): 9.00 Weight (Pounds): 135 Cardiovascular: normal rate Respiratory/Chest: lungs clear Zac Alejo MD Sep 06, 2018 12:48
--- NOTE | 2018-09-06 14:03 | Surgery Progress Note ---
Surgery Progress Note Subjective Additional Comments no acute events. doing well. comfortable family at bedside no complaints Objective Last 24 Hour Vital Signs Date Time Temp Pulse Resp B/P (MAP) Pulse Ox O2 Delivery O2 Flow Rate FiO2 09/06/18 12:00 97.5 82 14 129/65 (86) 98 09/06/18 09:37 100 125/60 09/06/18 09:37 125/60 09/06/18 09:37 100 125/60 09/06/18 08:00 97.8 100 18 125/60 (81) 97 09/06/18 04:00 98.9 97 18 111/60 (77) 97 09/06/18 00:00 98.3 82 18 123/60 (81) 96 09/05/18 21:00 Room Air 09/05/18 21:00 Room Air 09/05/18 20:00 97.8 83 18 120/64 (82) 97 09/05/18 18:58 98.2 09/05/18 16:00 98.2 79 18 122/95 (104) 99 79 I&O Intake and Output 09/05/18 09/06/18 18:59 06:59 Intake Total 1210 ml 550 ml Output Total 600 ml 1400 ml Balance 610 ml -850 ml Intake Oral 360 ml IV Total 850 ml 550 ml Output Urine Total 600 ml 1400 ml # Bowel Movements 1 2 Dressing: saturated Wound: other Cardiovascular: RSR Respiratory: clear Abdomen: soft, flat, present bowel sounds Extremities: no edema, no tenderness Plan Problems: (1) Decubitus skin ulcer Assessment & Plan: Pt presented on admission with multiple pressure injuries. DTPI noted to Sacrum .Base of wound maroon with fluctuance soft but no abscess. dark purple area noted to coccygeal area.(L)8cm x (W)6cm. Pt verbalized tenderness when site minimally palpated. Non-blanching erythema without induration or fluctuance periwound. Scrotal area is red but intact. Non-blanchable erythema without induration or fluctuance R trochanter.(L)4cm x ( W)3.5cm. Tender when minimally palpated. Non-blanching erythema without induration or fluctuance L trochanter.(L)6cm x (W )7cm. Non-tender when palpated. Non-blanchable erythema with fluctuance R heel. Tender when minimally palpated. Non-blanchable erythema with fluctuance L heel. Tender when minimally palpated. significant portion of wound related to incontinence as patient is mobile. instructed family and patient to let staff know when incontinence so that can be cleaned up Tx.plan: Apply Moisture Barrier paste to Sacrum. Cover with Optifoam drsg. Change very 3 days and prn. Apply Cavilon Skin Barrier to R and L trochanteric areas. Cover each site with Optifoam drsg. Change every 7 days and prn. Apply Moisture Barrier Paste to scrotal area with each incontinence care. Apply Cavilon Skin Barrier to both heels. Cover each heel with Optifoam drsg. Change very 7 days and prn. APM/TIFFANY mattress overlay. Reposition at least every 2hours or as tolerated. Off-load heels with pillow. (2) GI bleeding Assessment & Plan: history of dark stools currently okay h/h stable no active bleeding seen by GI. no plan for EGD currently agree given stable will follow with recs. Raúl Cardenas Sep 06, 2018 14:03
--- NOTE | 2018-09-06 15:16 | General Progress Note ---
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 - decub ulcer Recommendation - no po laxatives, since K level not known - will RX with enemas and dulcolax supp - re-check lytes in am - hydration - po diet - H2 Evette or PPI - No plans for EGD at this time Subjective Allergies: Coded Allergies: No Known Allergies (Unverified , 05/28/12) Subjective small BM no melena d/w son at bedside patient refused am labs today rectal exam done again today - still impacted with stool unable to disimpact manually since stool soft/sticky Objective Last 24 Hour Vital Signs Date Time Temp Pulse Resp B/P (MAP) Pulse Ox O2 Delivery O2 Flow Rate FiO2 09/06/18 12:00 97.5 82 14 129/65 (86) 98 09/06/18 09:37 100 125/60 09/06/18 09:37 125/60 09/06/18 09:37 100 125/60 09/06/18 08:00 97.8 100 18 125/60 (81) 97 09/06/18 04:00 98.9 97 18 111/60 (77) 97 09/06/18 00:00 98.3 82 18 123/60 (81) 96 09/05/18 21:00 Room Air 09/05/18 21:00 Room Air 09/05/18 20:00 97.8 83 18 120/64 (82) 97 09/05/18 18:58 98.2 09/05/18 16:00 98.2 79 18 122/95 (104) 99 79 Intake and Output 09/05/18 09/06/18 18:59 06:59 Intake Total 1210 ml 550 ml Output Total 600 ml 1400 ml Balance 610 ml -850 ml Intake Oral 360 ml IV Total 850 ml 550 ml Output Urine Total 600 ml 1400 ml # Bowel Movements 1 2 Height (Feet): 5 Height (Inches): 9.00 Weight (Pounds): 135 Objective WDWN NCAT supple CTA RRR abd soft NT ND Rectal - as described no edema (+) sacral decub ulcer Shannan Dash MD Sep 06, 2018 15:16
[2018-09-06] MEDS ORDERED: Fleet's Enema 133ml RECTAL SCH (15:21)
[2018-09-06 16:00] VITALS: BP 120/59
--- NOTE | 2018-09-06 17:55 | NUR ---
CASE MANAGEMENT: REVIEW 09/06/2018 SI: LOWER GIB. HEMATURIA. T 98.3 HR 82 RR 18 B/P 123/60 SATS 96% ON RA NO LABS TODAY IS:IVF @ 50 mL/HR LIPITOR PO QHS FLOMAX PO QHS NORVASC PO QD LOTENSIN PO QD PLAVIX PO QD PROTONIX PO QD ASA PO QD INSULIN ASPART SUBQ AC/HS K DUR PO X1 METFORMIN PO TIAC GABAPENTIN PO TID : TO MED/SURG STATUS DCP: FROM HOME
--- NOTE | 2018-09-06 19:01 | NUR ---
NURSE NOTES: Received report from LEVI Luis. Patient awake, alert, and verbally responsive to let his needs known. Speaks Icelandic. Breathing unlabored without distress or SOB. Denies pain at this time. IV site noted on right hand running fluid as ordered. Helped LEVI Luis to change patient's linen, clean patient, and changed sacral optifoam because it was soiled. Patient had smear amount of bowel movement after the fleet and suppository administered during the daytime. Will continue to monitor on patient's bowel movement. Patient said he spoke with the doctor and said he will be going home on Friday. Will follow up on that with daytime nurse. Bed placed at the lowest with alarm, brakes, and side rails up x 2 for safety. Call light placed within reach, encourage to press for any assistance needed. Will continue to monitor and provide care as ordered.
[2018-09-06] MEDS: D5NS 1,000 ML IV SCH (19:08)
--- NOTE | 2018-09-06 19:14 | NUR ---
HAND-OFF: Report given to LEVI Phoenix.
[2018-09-06 19:44] LABS: EOSINOPHILS % (AUTO) 2.9 % (0.0-3.0); HEMATOCRIT 28.1 % (42.0-52.0); HEMOGLOBIN 9.2 G/DL (14.2-18.0); LYMPHOCYTES % (AUTO) 15.2 % (20.0-45.0); MEAN CORPUSCULAR VOLUME 85 FL (80-99); MONOCYTES % (AUTO) 9.7 % (1.0-10.0); NEUTROPHILS % (AUTO) 71.2 % (45.0-75.0); PLATELET COUNT 314 K/UL (150-450); RED BLOOD COUNT 3.31 M/UL (4.70-6.10); WHITE BLOOD COUNT 8.5 K/UL (4.8-10.8)
[2018-09-06 19:58] LABS: ANION GAP 11 mmol/L (5-15); BLOOD UREA NITROGEN 5 mg/dL (7-18); CARBON DIOXIDE 17 MMOL/L (21-32); CHLORIDE 107 MMOL/L (98-107); CREATININE 0.8 MG/DL (0.55-1.30); SODIUM 135 MMOL/L (136-145)
[2018-09-06 20:00] VITALS: BP 117/58
[2018-09-06] MEDS: Tamsulosin 0.4mg cap ORAL SCH (20:41)
[2018-09-06] MEDS: Atorvastatin 80mg tab ORAL SCH (20:41)
[2018-09-07] VITALS: BP 122/62
[2018-09-07 04:00] VITALS: BP 115/59
[2018-09-07] MEDS: metFORMIN 500mg tab ORAL SCH ×3 (05:33→17:06)
[2018-09-07] MEDS: NovoLOG Insulin Flexpen SUBQ SCH ×4 (06:07→20:52)
--- NOTE | 2018-09-07 06:14 | NUR ---
NURSE NOTES: Patient's yung leaked around 0432. Since then nothing drained into the yung bag. Patient's linen was wet again at 0600. Called Dr. Alejo right now to notify that patient's yung is leaking. Waiting for Dr. Alejo's call back for further order follow up regards to the leaking yung.
--- NOTE | 2018-09-07 06:22 | NUR ---
NURSE NOTES: Received call back from Dr. Alejo to irrigate the yung with 50 cc of NS. Will provide care as ordered.
--- NOTE | 2018-09-07 06:40 | NUR ---
NURSE NOTES: Patient's yung now flowing well after irrigation. Drained 110ml of yellow urine with scant amount of blood clot.
[2018-09-07 07:28] LABS: ANION GAP 9 mmol/L (5-15); BLOOD UREA NITROGEN 8 mg/dL (7-18); CALCIUM 7.9 MG/DL (8.5-10.1); CARBON DIOXIDE 18 MMOL/L (21-32); CHLORIDE 107 MMOL/L (98-107); CREATININE 0.9 MG/DL (0.55-1.30); POTASSIUM 3.6 MMOL/L (3.5-5.1); SODIUM 134 MMOL/L (136-145)
--- NOTE | 2018-09-07 07:32 | NUR ---
HAND-OFF: Report given to LEVI Luis. Patient in stable condition.
--- NOTE | 2018-09-07 07:46 | NUR ---
NURSE NOTES: HANDOFF RECEIVED FROM MINSU, RN. PATIENT OBSERVED AWAKE AND RESTING IN BED WITH NO PHYSICAL SIGNS OF DISTRESS. PATIENT HAS RIGHT HAND IV RUNNING PRESCRIBED FLUIDS. SITE IS CLEAN DRY AND INTACT. BED IS IN THE LOWEST AND LOCKED POSITION. PATIENT HAS CALL LIGHT CLUTCHED BETWEEN HIS LEFT HAND.
[2018-09-07 08:00] VITALS: BP 117/63
[2018-09-07] MEDS: Aspirin Baby 81mg ORAL SCH (09:41)
[2018-09-07] MEDS: Metoprolol Succinate XL 50mg tab ORAL SCH (09:43)
[2018-09-07] MEDS: Benazepril 10mg tab ORAL SCH (09:43)
[2018-09-07] MEDS ORDERED: Sorbitol Solution UD 30ml ORAL SCH (09:45)
--- NOTE | 2018-09-07 09:47 | General Progress Note ---
Assessment/Plan Assessment/Plan: Assessment - ER history of "dark stools" noted, but patient OB (-) in ER and again on the floor - Rectal stool impaction- now having BM - low K - Renal mass - chronic yung - functional decline - decub ulcer Recommendation - replace lytes - hydration - po diet - H2 Evette or PPI - No plans for EGD at this time - OK for antiplatelet Rx - d/c planning per PMD Subjective Allergies: Coded Allergies: No Known Allergies (Unverified , 05/28/12) Subjective (+) BM feels wel want to go home today Objective Last 24 Hour Vital Signs Date Time Temp Pulse Resp B/P (MAP) Pulse Ox O2 Delivery O2 Flow Rate FiO2 09/07/18 08:00 98.0 71 18 117/63 (81) 97 09/07/18 04:00 98.1 68 17 115/59 (77) 95 09/07/18 00:00 98.9 82 16 122/62 (82) 98 09/06/18 20:00 97.8 72 14 117/58 (77) 98 09/06/18 16:00 97.7 76 15 120/59 (79) 99 09/06/18 12:00 97.5 82 14 129/65 (86) 98 Intake and Output 09/06/18 09/07/18 19:00 07:00 Intake Total 960 ml 550 ml Output Total 900 ml 400 ml Balance 60 ml 150 ml Intake Oral 960 ml IV Total 550 ml Output Urine Total 900 ml 400 ml Laboratory Tests 09/06/18 18:30: White Blood Count 8.5, Red Blood Count 3.31L, Hemoglobin 9.2L, Hematocrit 28.1L , Mean Corpuscular Volume 85, Mean Corpuscular Hemoglobin 27.7, Mean Corpuscular Hemoglobin Concent 32.6, Red Cell Distribution Width 26.0H, Platelet Count 314, Mean Platelet Volume 5.1L, Neutrophils (%) (Auto) 71.2, Lymphocytes (%) (Auto) 15.2L, Monocytes (%) (Auto) 9.7, Eosinophils (%) (Auto) 2.9, Basophils (%) (Auto) 1.0, Sodium Level 135L, Potassium Level 4.0, Chloride Level 107, Carbon Dioxide Level 17L, Anion Gap 11, Blood Urea Nitrogen 5L, Creatinine 0.8, Estimat Glomerular Filtration Rate , Glucose Level 190H, Calcium Level 8.0L 09/07/18 06:20: Sodium Level 134L, Potassium Level 3.6, Chloride Level 107, Carbon Dioxide Level 18L, Anion Gap 9, Blood Urea Nitrogen 8, Creatinine 0.9, Estimat Glomerular Filtration Rate , Glucose Level 125H, Calcium Level 7.9L Height (Feet): 5 Height (Inches): 9.00 Weight (Pounds): 135 Objective WDWN NCAT supple CTA RRR abd soft NT ND no edema Shannan Dash MD Sep 07, 2018 09:47
[2018-09-07] MEDS: Morphine Sulfate 2mg/ml Inj(IV/IM USE ONLY) IVP PRN (10:56)
[2018-09-07 12:00] VITALS: BP 117/63
--- NOTE | 2018-09-07 12:55 | Surgery Progress Note ---
Surgery Progress Note Subjective Additional Comments Patient seen and examined bedside with family present. No acute events. Resting comfortably. Has no complaints. States he is tolerating diet and having multiple bowel movements. Unfortunately still incontinent but is more verbal about when he needs to be changed. Labs improved. Objective Last 24 Hour Vital Signs Date Time Temp Pulse Resp B/P (MAP) Pulse Ox O2 Delivery O2 Flow Rate FiO2 09/07/18 11:26 98.0 09/07/18 09:43 71 117/63 09/07/18 09:43 117/63 09/07/18 09:43 71 117/63 09/07/18 08:00 98.0 71 18 117/63 (81) 97 09/07/18 04:00 98.1 68 17 115/59 (77) 95 09/07/18 00:00 98.9 82 16 122/62 (82) 98 09/06/18 20:00 97.8 72 14 117/58 (77) 98 09/06/18 16:00 97.7 76 15 120/59 (79) 99 I&O Intake and Output 09/06/18 09/07/18 18:59 06:59 Intake Total 960 ml 550 ml Output Total 900 ml 400 ml Balance 60 ml 150 ml Intake Oral 960 ml IV Total 550 ml Output Urine Total 900 ml 400 ml Dressing: dry Wound: clean Cardiovascular: RSR Respiratory: clear Abdomen: soft, flat, non-tender, present bowel sounds Extremities: no cyanosis, other Laboratory Tests Test 09/06/18 18:30 09/07/18 06:20 White Blood Count 8.5 K/UL (4.8-10.8) Red Blood Count 3.31 M/UL (4.70-6.10) L Hemoglobin 9.2 G/DL (14.2-18.0) L Hematocrit 28.1 % (42.0-52.0) L Mean Corpuscular Volume 85 FL (80-99) Mean Corpuscular Hemoglobin 27.7 PG (27.0-31.0) Mean Corpuscular Hemoglobin Concent 32.6 G/DL (32.0-36.0) Red Cell Distribution Width 26.0 % (11.6-14.8) H Platelet Count 314 K/UL (150-450) Mean Platelet Volume 5.1 FL (6.5-10.1) L Neutrophils (%) (Auto) 71.2 % (45.0-75.0) Lymphocytes (%) (Auto) 15.2 % (20.0-45.0) L Monocytes (%) (Auto) 9.7 % (1.0-10.0) Eosinophils (%) (Auto) 2.9 % (0.0-3.0) Basophils (%) (Auto) 1.0 % (0.0-2.0) Sodium Level 135 MMOL/L (136-145) L 134 MMOL/L (136-145) L Potassium Level 4.0 MMOL/L (3.5-5.1) 3.6 MMOL/L (3.5-5.1) Chloride Level 107 MMOL/L (98-107) 107 MMOL/L (98-107) Carbon Dioxide Level 17 MMOL/L (21-32) L 18 MMOL/L (21-32) L Anion Gap 11 mmol/L (5-15) 9 mmol/L (5-15) Blood Urea Nitrogen 5 mg/dL (7-18) L 8 mg/dL (7-18) Creatinine 0.8 MG/DL (0.55-1.30) 0.9 MG/DL (0.55-1.30) Estimat Glomerular Filtration Rate mL/min (>60) mL/min (>60) Glucose Level 190 MG/DL (74-106) H 125 MG/DL (74-106) H Calcium Level 8.0 MG/DL (8.5-10.1) L 7.9 MG/DL (8.5-10.1) L Plan Problems: (1) Decubitus skin ulcer Assessment & Plan: Pt presented on admission with multiple pressure injuries. DTPI noted to Sacrum .Base of wound maroon with fluctuance soft but no abscess. dark purple area noted to coccygeal area.(L)8cm x (W)6cm. Pt verbalized tenderness when site minimally palpated. Non-blanching erythema without induration or fluctuance periwound. Scrotal area is red but intact. Non-blanchable erythema without induration or fluctuance R trochanter.(L)4cm x ( W)3.5cm. Tender when minimally palpated. Non-blanching erythema without induration or fluctuance L trochanter.(L)6cm x (W )7cm. Non-tender when palpated. Non-blanchable erythema with fluctuance R heel. Tender when minimally palpated. Non-blanchable erythema with fluctuance L heel. Tender when minimally palpated. significant portion of wound related to incontinence as patient is mobile. instructed family and patient to let staff know when incontinence so that can be cleaned up Tx.plan: Apply Moisture Barrier paste to Sacrum. Cover with Optifoam drsg. Change very 3 days and prn. Apply Cavilon Skin Barrier to R and L trochanteric areas. Cover each site with Optifoam drsg. Change every 7 days and prn. Apply Moisture Barrier Paste to scrotal area with each incontinence care. Apply Cavilon Skin Barrier to both heels. Cover each heel with Optifoam drsg. Change very 7 days and prn. APM/TIFFANY mattress overlay. Reposition at least every 2hours or as tolerated. Off-load heels with pillow. (2) GI bleeding Assessment & Plan: history of dark stools currently okay h/h stable no active bleeding seen by GI. no plan for EGD currently agree given stable will follow with recs. Additional Comments Okay for discharge planning from surgical standpoint Raúl Cardenas Sep 07, 2018 12:55
--- NOTE | 2018-09-07 13:37 | NUR ---
*-* INSURANCE *-* ALL CLINICALS AND REVIEWS HAVE BEEN FAXED TO: [facility]MA[facility]APA P: [phone] F: [phone] (FAX CLINICALS)
--- NOTE | 2018-09-07 14:24 | General Progress Note ---
Assessment/Plan Problem List: (1) GI bleeding ICD Codes: K92.2 - Gastrointestinal hemorrhage, unspecified SNOMED: 98184879 (2) Hematuria, gross ICD Codes: R31.0 - Gross hematuria SNOMED: 914605643 (3) HTN (hypertension) ICD Codes: I10 - Essential (primary) hypertension SNOMED: 93547193 (4) Decubitus skin ulcer ICD Codes: L89.90 - Pressure ulcer of unspecified site, unspecified stage SNOMED: 962173831 (5) Iron deficiency anemia ICD Codes: D50.9 - Iron deficiency anemia, unspecified SNOMED: 80690212 (6) Urinary retention ICD Codes: R33.9 - Retention of urine, unspecified SNOMED: 586386712 (7) Hypokalemia ICD Codes: E87.6 - Hypokalemia SNOMED: 52010132 Assessment/Plan: watch yung output no endoscopy Discussed with Dr Ekta luong D tomorrow Subjective Allergies: Coded Allergies: No Known Allergies (Unverified , 05/28/12) Subjective Yung was not working today flushed ok now Objective Last 24 Hour Vital Signs Date Time Temp Pulse Resp B/P (MAP) Pulse Ox O2 Delivery O2 Flow Rate FiO2 09/07/18 12:00 97.8 72 14 117/63 (81) 97 09/07/18 11:26 98.0 09/07/18 09:43 71 117/63 09/07/18 09:43 117/63 09/07/18 09:43 71 117/63 09/07/18 08:00 98.0 71 18 117/63 (81) 97 09/07/18 04:00 98.1 68 17 115/59 (77) 95 09/07/18 00:00 98.9 82 16 122/62 (82) 98 09/06/18 20:00 97.8 72 14 117/58 (77) 98 09/06/18 16:00 97.7 76 15 120/59 (79) 99 Intake and Output 09/06/18 09/07/18 18:59 06:59 Intake Total 960 ml 550 ml Output Total 900 ml 400 ml Balance 60 ml 150 ml Intake Oral 960 ml IV Total 550 ml Output Urine Total 900 ml 400 ml Laboratory Tests 09/06/18 18:30: White Blood Count 8.5, Red Blood Count 3.31L, Hemoglobin 9.2L, Hematocrit 28.1L , Mean Corpuscular Volume 85, Mean Corpuscular Hemoglobin 27.7, Mean Corpuscular Hemoglobin Concent 32.6, Red Cell Distribution Width 26.0H, Platelet Count 314, Mean Platelet Volume 5.1L, Neutrophils (%) (Auto) 71.2, Lymphocytes (%) (Auto) 15.2L, Monocytes (%) (Auto) 9.7, Eosinophils (%) (Auto) 2.9, Basophils (%) (Auto) 1.0, Sodium Level 135L, Potassium Level 4.0, Chloride Level 107, Carbon Dioxide Level 17L, Anion Gap 11, Blood Urea Nitrogen 5L, Creatinine 0.8, Estimat Glomerular Filtration Rate , Glucose Level 190H, Calcium Level 8.0L 09/07/18 06:20: Sodium Level 134L, Potassium Level 3.6, Chloride Level 107, Carbon Dioxide Level 18L, Anion Gap 9, Blood Urea Nitrogen 8, Creatinine 0.9, Estimat Glomerular Filtration Rate , Glucose Level 125H, Calcium Level 7.9L Height (Feet): 5 Height (Inches): 9.00 Weight (Pounds): 135 Cardiovascular: normal rate Respiratory/Chest: lungs clear Edema: no edema noted Generalized Zac Alejo MD Sep 07, 2018 14:24
--- NOTE | 2018-09-07 14:39 | NUR ---
CASE MANAGEMENT:REVIEW 09/07/18 SI: GIB. HEMATURIA. URINARY RETENTION 97.8 72 14 117/63 97% ON RA CA-7.9 IS: NORVASC PO QD LOTENSIN PO QD PLAVIX PO QD TOPROL XL PO QD ASA PO QD FLOMAX PO QHS : MED/SURG STATUS DCP: FROM HOME PLAN: FLUSH NELSON W/50CC OF NS MONITOR URINE OUTPUT CLOSELY
--- NOTE | 2018-09-07 14:50 | NUR ---
RD ASSESSMENT & RECOMMENDATIONS SEE CARE ACTIVITY FOR COMPLETE ASSESSMENT DAILY ESTIMATED NEEDS: Needs based on Wound, underweight 43kg 30-40 kcals/kg 1228-9804 total kcals 1.25-1.5 g protein/kg 54-65 g total protein 25-35ml/kcal mL/kg 9251-8835 total fluid mLs NUTRITION DIAGNOSIS: Increased kcal and pro needs r/t underweight status and wound healing as evidenced by pt est 77% of [place] Body weight w/ generalized moderate to severe wasting with BL heels stage 2 and sacral DTI. CURRENT DIET: CLD PO DIET RECOMMENDATIONS: PER GI-> CLD at this time, rec to add ENSURE CLEAR TID ADDITIONAL RECOMMENDATIONS: 1) Obtain a standing weight OR calibrated bed scale wt 2) Wound care: SHIRA BID + Vit C 250mg daily 3) Advance diet as able to Liberalized Regular- monitor po intake 3) Add Glucerna 1 tetra dustin TID w/ meals with upgrade diet 4) LINEN CONTR[employer]LLER eval for appropriate texture 5) Check lytes, replete as needed
[2018-09-07 16:00] VITALS: BP 118/63
[2018-09-07] MEDS: D5NS 1,000 ML IV SCH (17:07)
--- NOTE | 2018-09-07 19:46 | NUR ---
NURSE NOTES: Received report from LEVI Luis. Patient sleeping. Breathing unlabored without signs of distress or SOB. No signs and symptoms of pain noted at this time. Bed placed at the lowest with alarm, brakes, and side rails up x 2 for safety. Call light placed within reach. Baltazar draining yellow urine. IV site intact and patent running fluid as ordered Will continue to monitor and provide care as ordered.
--- NOTE | 2018-09-07 19:49 | NUR ---
HAND-OFF: Report given to LEVI OWENS.
[2018-09-07 20:00] VITALS: BP 120/65
[2018-09-07] MEDS: Tamsulosin 0.4mg cap ORAL SCH (20:39)
[2018-09-07] MEDS: Atorvastatin 80mg tab ORAL SCH (20:39)
[2018-09-08] VITALS: BP 108/57
[2018-09-08] MEDS: Morphine Sulfate 2mg/ml Inj(IV/IM USE ONLY) IVP PRN ×3 (01:06→09:52)
[2018-09-08 04:00] VITALS: BP 119/54
[2018-09-08] MEDS: metFORMIN 500mg tab ORAL SCH ×2 (05:46→11:58)
[2018-09-08] MEDS: NovoLOG Insulin Flexpen SUBQ SCH ×2 (05:54→11:58)
--- NOTE | 2018-09-08 07:19 | General Progress Note ---
Assessment/Plan Assessment/Plan: Assessment - ER history of "dark stools" noted, but patient OB (-) in ER and again on the floor - Rectal stool impaction- now having BM - Renal mass - chronic yung - functional decline - decub ulcer Recommendation - hydration - po diet - H2 Evette or PPI - No plans for EGD at this time - d/c planning per PMD Subjective Allergies: Coded Allergies: No Known Allergies (Unverified , 05/28/12) Subjective (+) BM feels well tolerating po want to go home today Objective Last 24 Hour Vital Signs Date Time Temp Pulse Resp B/P (MAP) Pulse Ox O2 Delivery O2 Flow Rate FiO2 09/08/18 04:00 97.6 96 18 119/54 (75) 98 09/08/18 00:00 98.2 91 17 108/57 (74) 96 09/07/18 20:00 97.6 90 18 120/65 (83) 96 09/07/18 16:00 97.8 70 14 118/63 (81) 97 09/07/18 12:00 97.8 72 14 117/63 (81) 97 09/07/18 11:26 98.0 09/07/18 09:43 71 117/63 09/07/18 09:43 117/63 09/07/18 09:43 71 117/63 09/07/18 08:00 98.0 71 18 117/63 (81) 97 Intake and Output 09/07/18 09/08/18 19:00 07:00 Intake Total 600 ml 550 ml Output Total 406 ml 950 ml Balance 194 ml -400 ml Intake Oral 600 ml IV Total 550 ml Output Urine Total 406 ml 950 ml # Voids 3 # Bowel Movements 5 Height (Feet): 5 Height (Inches): 9.00 Weight (Pounds): 135 Objective WDWN NCAT supple CTA RRR abd soft NT ND no edema Shannan Dash MD Sep 08, 2018 07:19
--- NOTE | 2018-09-08 07:39 | NUR ---
HAND-OFF: Report given to LEVI Ren. Patient in stable condition.
--- NOTE | 2018-09-08 07:45 | NUR ---
NURSE NOTES: Received patient in bed, AAOx3-4. Azeri speaking. Denies pain or discomfort @ this time. IV intact, no s/s of infiltration. Bed is in lowest position and locked. Baltazar intact, no bloody urine.Call light within reach. Will continue plan of care.
[2018-09-08 08:00] VITALS: BP 119/65
[2018-09-08] MEDS: Metoprolol Succinate XL 50mg tab ORAL SCH (08:33)
[2018-09-08] MEDS: Aspirin Baby 81mg ORAL SCH (08:33)
[2018-09-08] MEDS: Benazepril 10mg tab ORAL SCH (08:51)
--- NOTE | 2018-09-08 11:11 | NUR ---
CASE MANAGEMENT:REVIEW 09/08/18 SI: GIB. HEMATURIA. URINARY RETENTION 97.8 72 14 117/63 97% ON RA IS: SORBITOL PO QHS NORVASC PO QD LOTENSIN PO QD PLAVIX PO QD TOPROL XL PO QD ASA PO QD FLOMAX PO QHS : MED/SURG STATUS DCP: FROM HOME
--- NOTE | 2018-09-08 11:33 | General Progress Note ---
Assessment/Plan Problem List: (1) GI bleeding ICD Codes: K92.2 - Gastrointestinal hemorrhage, unspecified SNOMED: 52199649 (2) Hematuria, gross ICD Codes: R31.0 - Gross hematuria SNOMED: 342420863 (3) HTN (hypertension) ICD Codes: I10 - Essential (primary) hypertension SNOMED: 05645563 (4) Decubitus skin ulcer ICD Codes: L89.90 - Pressure ulcer of unspecified site, unspecified stage SNOMED: 573250411 (5) Iron deficiency anemia ICD Codes: D50.9 - Iron deficiency anemia, unspecified SNOMED: 03511653 (6) Urinary retention ICD Codes: R33.9 - Retention of urine, unspecified SNOMED: 602446428 (7) Hypokalemia ICD Codes: E87.6 - Hypokalemia SNOMED: 36601214 Assessment/Plan: Dc today Subjective Allergies: Coded Allergies: No Known Allergies (Unverified , 05/28/12) Subjective all noted Objective Last 24 Hour Vital Signs Date Time Temp Pulse Resp B/P (MAP) Pulse Ox O2 Delivery O2 Flow Rate FiO2 09/08/18 09:00 Room Air 09/08/18 08:52 99 112/68 09/08/18 08:51 112/68 09/08/18 08:33 102 119/65 09/08/18 08:00 98.2 102 20 119/65 (83) 96 09/08/18 04:00 97.6 96 18 119/54 (75) 98 09/08/18 00:00 98.2 91 17 108/57 (74) 96 09/07/18 20:00 97.6 90 18 120/65 (83) 96 09/07/18 16:00 97.8 70 14 118/63 (81) 97 09/07/18 12:00 97.8 72 14 117/63 (81) 97 Intake and Output 09/07/18 09/08/18 19:00 07:00 Intake Total 600 ml 550 ml Output Total 406 ml 950 ml Balance 194 ml -400 ml Intake Oral 600 ml IV Total 550 ml Output Urine Total 406 ml 950 ml # Voids 3 # Bowel Movements 5 Height (Feet): 5 Height (Inches): 9.00 Weight (Pounds): 135 Zac Alejo MD Sep 08, 2018 11:33
[2018-09-08 12:00] VITALS: BP 121/61
--- NOTE | 2018-09-08 12:00 | NUR ---
NURSE NOTES: Patient's @ the bedside. she said the ride will be available around 2pm.Awaiting for return call.
--- NOTE | 2018-09-08 12:27 | Surgery Progress Note ---
Surgery Progress Note Subjective Additional Comments Patient seen and examined bedside. Family present. No acute events. States he feels very well and wants to go home. Exam stable. Otherwise hemodynamic Juan Manuel stable and well. Recovering. Plan for DC today Objective Last 24 Hour Vital Signs Date Time Temp Pulse Resp B/P (MAP) Pulse Ox O2 Delivery O2 Flow Rate FiO2 09/08/18 09:00 Room Air 09/08/18 08:52 99 112/68 09/08/18 08:51 112/68 09/08/18 08:33 102 119/65 09/08/18 08:00 98.2 102 20 119/65 (83) 96 09/08/18 04:00 97.6 96 18 119/54 (75) 98 09/08/18 00:00 98.2 91 17 108/57 (74) 96 09/07/18 20:00 97.6 90 18 120/65 (83) 96 09/07/18 16:00 97.8 70 14 118/63 (81) 97 I&O Intake and Output 09/07/18 09/08/18 19:00 07:00 Intake Total 600 ml 550 ml Output Total 406 ml 950 ml Balance 194 ml -400 ml Intake Oral 600 ml IV Total 550 ml Output Urine Total 406 ml 950 ml # Voids 3 # Bowel Movements 5 Dressing: saturated Wound: clean Cardiovascular: RSR Respiratory: clear Abdomen: soft, present bowel sounds Extremities: no cyanosis Plan Problems: (1) Decubitus skin ulcer Assessment & Plan: Pt presented on admission with multiple pressure injuries. DTPI noted to Sacrum .Base of wound maroon with fluctuance soft but no abscess. dark purple area noted to coccygeal area.(L)8cm x (W)6cm. Pt verbalized tenderness when site minimally palpated. Non-blanching erythema without induration or fluctuance periwound. Scrotal area is red but intact. Non-blanchable erythema without induration or fluctuance R trochanter.(L)4cm x ( W)3.5cm. Tender when minimally palpated. Non-blanching erythema without induration or fluctuance L trochanter.(L)6cm x (W )7cm. Non-tender when palpated. Non-blanchable erythema with fluctuance R heel. Tender when minimally palpated. Non-blanchable erythema with fluctuance L heel. Tender when minimally palpated. significant portion of wound related to incontinence as patient is mobile. instructed family and patient to let staff know when incontinence so that can be cleaned up Tx.plan: Apply Moisture Barrier paste to Sacrum. Cover with Optifoam drsg. Change very 3 days and prn. Apply Cavilon Skin Barrier to R and L trochanteric areas. Cover each site with Optifoam drsg. Change every 7 days and prn. Apply Moisture Barrier Paste to scrotal area with each incontinence care. Apply Cavilon Skin Barrier to both heels. Cover each heel with Optifoam drsg. Change very 7 days and prn. APM/TIFFANY mattress overlay. Reposition at least every 2hours or as tolerated. Off-load heels with pillow. (2) GI bleeding Assessment & Plan: history of dark stools currently okay h/h stable no active bleeding seen by GI. no plan for EGD currently agree given stable will follow with recs. Waiting. Okay to discharge from surgical standpoint. Continue above wound care instructions upon discharge care plan. Raúl Cardenas Sep 08, 2018 12:26
--- NOTE | 2018-09-08 12:54 | NUR ---
*-* INSURANCE *-* ALL CLINICALS AND REVIEWS HAVE BEEN FAXED TO: CHARMA[facility] THAPA P: [phone] F: [phone] (FAX CLINICALS)
[2018-09-08] MEDS ORDERED: D5NS 1000ml IV ONE (14:04)
--- NOTE | 2018-09-08 14:05 | NUR ---
NURSE NOTES: patient was discharged to home accompanied by his and daughter in stable condition via private car. Prior to discharge, patient was seen by Dr. Alejo. Per Dr. Alejo, keep the yung in when discharge. No bloody urine or clots in yung. IV and ID were removed. no s/s of infection on IV removal site. Patient denied any pain or discomfort. discharge instruction given to the patient and . They will follow up with patient's primary doctor. skin assessment done, no new skin issue. No skin break. Pictures were obtained and new dressings were applied. Patient is aware when to seek medical attention. All belongings accounted for.
--- NOTE | 2018-09-08 18:22 | Cardiology Report ---
APPROVED REPORT EKG Measurement Heart [id number] Normal sinus rhythm Septal infarct, age undetermined T wave abnormality, consider anterior ischemia Abnormal ECG
[2018-09-08] MEDS ORDERED: Sorbitol Solution UD 30ml ORAL SCH (21:00)
--- NOTE | 2018-09-09 09:05 | Discharge Summary ---
Discharge Summary Discharge Summary _ DATE OF ADMISSION: 09/03/2018 DATE OF DISCHARGE: 09/08/2018 DISCHARGED BY: Dr. Alejo REASON FOR ADMISSION: 88 years old male with past medical history of hypertension, diabetes mellitus, hyperlipidemia, BPH, chronic Baltazar, renal mass, sacral decubitus, presented to emergency department for evaluation due to 3 days of reported melena. Patient also reported hematuria from chronic indwelling Baltazar catheter. Patient described dark-colored stools with mild blood tinge. Upon evaluation vital signs were stable. Laboratory work-up revealed no leukocytosis, hemoglobin 10, hematocrit 31.4. Troponin negative. EKG revealed sinus rhythm, no acute ischemic changes. Stable renal parameters. Sodium 129. Glucose 235. Stable LFT and lipase Chest x-ray revealed no acute cardiopulmonary pathology. Urinalysis revealed +2 protein, +5 blood, +3 leukocyte esterase, and few bacteria. Patient received IV Protonix in emergency department . No active GI bleeding was noted based on clinical examination. Patient was subsequently admitted to the hospital for further evaluation and management. CONSULTANTS: GI specialist Dr. Pozo surgery Dr. Cardenas [facility] COURSE: Patient is admitted to telemetry floor. GI specialist followed. Patient started on isotonic solution to correct hyponatremia. Home medication for blood pressure and blood sugar continued. Patient initially was kept n.p.o. DVT prophylaxis with SCD provided. GI prophylaxis with Protonix provided. Hemoglobin and hematocrit continued to be stable. Stool for occult blood was negative twice : one time in emergency department and one time on the floor. No evidence of active bleeding. Patient initially noted to have rectal stool impaction. Bowel regimen instituted. Patient started to have bowel movements. Patient slowly started on diet and was advanced as tolerated. Patient was able to tolerate diet. Per GI specialist, no plans for EGD at this time. Hemoglobin and hematocrit remained at baseline. Prior to discharge hemoglobin 9.2 hematocrit 28.1. Sodium improved to 134. Wound care for sacral decubitus ulcer, present on admission, provided as per general surgeon recommendation. Continue wound care at home. Patient clinically stabilized and was ready for discharge home. FINAL DIAGNOSES: GI bleeding with melena and rectal pain Hematuria , likely due to known renal mass Hyponatremia-resolved Hypertension Diabetes mellitus Rectal stool impaction- resolved Sacral decubitus ulcer, present on admission DISCHARGE MEDICATIONS: See Medication Reconciliation list. DISCHARGE INSTRUCTIONS: Patient was discharged home . Follow up with primary care provider in one week. I have been assigned to dictate discharge summary for this account. I was not involved in the patient's management. Shaista Reyes NP Sep 09, 2018 09:05
== END 2018-09-08 14:05 | disposition home or self-care (01) | DRG 378 ==
LOC: EDBD 11:23 → EMR 11:50 → 2E 12:33 → EDBEDREQ 13:04 → 4E 14:27
DX: K25.4 Chronic or unspecified gastric ulcer with hemorrhage (principal); E87.1 Hypo-osmolality and hyponatremia; I10 Essential (primary) hypertension; R31.0 Gross hematuria; E11.9 Type 2 diabetes mellitus without complications; E78.5 Hyperlipidemia, unspecified; N28.9 Disorder of kidney and ureter, unspecified; K56.41 Fecal impaction; L89.150 Pressure ulcer of sacral region, unstageable; E87.6 Hypokalemia; D50.9 Iron deficiency anemia, unspecified; N40.1 Benign prostatic hyperplasia with lower urinary tract symptoms; R33.8 Other retention of urine
CPT/HCPCS: 36415; 71045; 80048; 80053; 81003; 82270; 82962; 83690; 84484; 85025; 85610; 85730; 86850; 86900; 86901; 93005; 96361; 96365; 96375; 99285; J1815; J8499